=== PATIENT | female | born 1945 | race Caucasian/White ===

== ENCOUNTER 2018-04-17 12:07 | Inpatient (IN) ==
--- OUTSIDE RECORDS SUMMARY | 2018-04-17 12:31 | External Medical Summary | Referral Summary ---
:1945 Author Organization [facility] Address [address] [place] [address] Care Team Providers Name Role Phone Yoni Brice Afia Primary Care Physician Encounter [facility] [id number] Date(s): 03/15/18 - 03/15/18 [facility] [address] [place] [address] Encounter Diagnosis MDS (myelodysplastic syndrome) (Discharge Diagnosis) - 03/15/18 Discharge Disposition: 01-Home or Self Care Attending Physician: Bunny Palacio DO Admitting Physician: Bunny Palacio DO Vital Signs Most recent to oldest [Reference Range]: 1 Temperature Temporal Artery [36.3-37.8 degC] 37 degC (03/15/18 8:18 AM) Heart Rate Monitored [60-100 bpm] 63 bpm (03/15/18 10:45 AM) Respiratory Rate [14-20 br/min] 16 br/min (03/15/18 10:45 AM) Blood Pressure [90-140/60-90 mmHg] 118/60 mmHg (03/15/18 10:45 AM) Mean Arterial Pressure, Cuff 88 mmHg (03/15/18 10:45 AM) SpO2 100 % (03/15/18 10:45 AM) Problem List Condition Effective Dates Status Health Status Informant Cataracts(Confirmed) Active Chronic pancreatitis(Confirmed)1 Active Coronary artery disease(Confirmed)2 Active Unspecified deficiency Active anemia(Confirmed)3 Diabetes w/o complication type Active II(Confirmed)4 Long-term (current) use Active anticoagul(Confirmed)5 Unspecified hypothyroidism(Confirmed)6 Active Incisional hernia(Confirmed) Active Irregular heart rhythm(Confirmed)7 Active Measles(Confirmed)8 1950 Active Mumps(Confirmed)9 1972 Active Preleukemia(Confirmed) Active Neuropathy in ugo legs(Confirmed)10 Active Peripheral arterial disease(Confirmed) Active Rheumatic fever w/o heart 1953 Active involvement(Confirmed)11 Scarlet fever(Confirmed) 1953 Active Sjogren's syndrome(Confirmed)12 Active Lupus(Confirmed)13 Active Chicken pox(Confirmed) Active 1started in 1982. See conversion document.2See conversion document.3See conversion document.4See conversion document.5See conversion document.6See conversion document.7See conversion document.8See conversion document.9See conversion document.10See conversion document.11See conversion document.12See conversion document.13See conversion document. Allergies, Adverse Reactions, Alerts Substance Reaction Severity Status penicillin Urticaria (hives) Active Bactrim Active Ativan Active Medications acyclovir 800 mg, 0 Refill(s) Start Date: 03/15/18 Status: Orderedaspirin 81 mg, Oral, Daily, 0 Refill(s) Start Date: 07/02/14 Status: Orderedcalcium (as calcium citrate) 200 mg oral tablet 1 tabs, Oral, BID, 0 Refill(s) Start Date: 07/02/14 Status: Orderedcalcium carbonate-magnesium chloride 112 mg-64 mg oral delayed release tablet tabs, Oral, Daily, 0 Refill(s) Start Date: 07/02/14 Status: OrderedCentrum Silver 1, Oral, Daily, 0 Refill(s) Start Date: 07/02/14 Status: Orderedcyclobenzaprine 5 mg oral tablet 1 tabs, Oral, TID, 0 Refill(s) Start Date: 07/02/14 Status: Orderedferrous sulfate See Instructions, 5 mg orally 2x daily may take with food to minimize abdominal discomfort, 0 Refill(s) Start Date: 07/02/14 Status: OrderedHumaLOG SubCutaneous, 0 Refill(s) Start Date: 07/02/14 Status: OrderedLantus 100 units/mL subcutaneous solution SubCutaneous, 0 Refill(s) Start Date: 07/02/14 Status: Orderedlevothyroxine 175 mcg, Oral, Daily, 0 Refill(s) Start Date: 07/02/14 Status: OrderedMelatonin Bedtime (once a day), 0 Refill(s) Start Date: 03/15/18 Status: Orderedmorphine 30 mg oral tablet 1 tabs, Oral, q4hr, as needed for pain, 0 Refill(s) Start Date: 07/02/14 Status: Orderedmorphine 60 mg/12 hours oral tablet, extended release 1 tabs, Oral, q12hr, 0 Refill(s) Start Date: 07/02/14 Status: Orderednitroglycerin 0.4 mg sublingual tablet 1 tabs, SubLingual, q5min, as needed for chest pain, # 100 tabs, 0 Refill(s) Start Date: 07/02/14 Status: OrderedPlavix 75 mg oral tablet 1 tabs, Oral, Daily, # 90 tabs, 0 Refill(s) Start Date: 07/02/14 Status: OrderedPrednisol 1% ophthalmic solution drops, q4hr, 0 Refill(s) Start Date: 07/11/15 Status: OrderedRestasis 0.05% ophthalmic emulsion drops, Eye-Both, q12hr, 0 Refill(s) Start Date: 07/02/14 Status: Orderedtorsemide 5 mg oral tablet 1 tabs, Oral, Daily, # 90 tabs, 0 Refill(s) Start Date: 07/02/14 Status: OrderedTriCor 145 mg oral tablet 1 tabs, Oral, Daily, # 30 tabs, 0 Refill(s) Start Date: 07/02/14 Status: Orderedvitamin E 400 intl units oral capsule 1 caps, Oral, Daily, # 100 caps, 0 Refill(s) Start Date: 07/02/14 Status: Ordered Results Hematology Most recent to oldest [Reference Range]: 1 WBC [4.8-10.8 10*3/uL] 1.8 10*3/uL *LOW* (03/15/18 9:03 AM) RBC [4.00-5.20] 2.71 *LOW* (03/15/18 9:03 AM) Hgb [12.0-16.0 gm/dL] 8.9 gm/dL *LOW* (03/15/18 9:03 AM) Hct [37.0-47.0 %] 27.7 % *LOW* (03/15/18 9:03 AM) MCV [82.0-99.0 fL] 102.2 fL *HI* (03/15/18 9:03 AM) MCH [27.0-32.0 pg] 32.8 pg *HI* (03/15/18 9:03 AM) MCHC [32.0-36.0 gm/dL] 32.1 gm/dL (03/15/18 9:03 AM) RDW [11.5-14.5 %] 15.9 % *HI* (03/15/18 9:03 AM) Platelet [150-400 10*3/uL] 64 10*3/uL *LOW* (03/15/18 9:03 AM) MPV [9.4-12.4 fL] 12.7 fL *HI* (03/15/18 9:03 AM) Neutrophils [51-75 %] 32 % *LOW* (03/15/18 9:03 AM) Band Man [0-8 %] 2 % (03/15/18 9:03 AM) [place] Man [0-1 %] 3 % *HI* (03/15/18 9:03 AM) Lymphocytes [20-46 %] 52 % *HI* (03/15/18 9:03 AM) Monocytes [4-11 %] 1 % *LOW* (03/15/18 9:03 AM) Eosinophils [0-4 %] 10 % *HI* (03/15/18 9:03 AM) Basophils [0-2 %] 0 % (03/15/18 9:03 AM) Neutro Absolute [1.90-7.00] 0.61 *LOW* (03/15/18 9:03 AM) Lymph Absolute [0.80-3.30] 0.94 (03/15/18 9:03 AM) [place] Absolute [0.30-1.00] 0.02 *LOW* (03/15/18 9:03 AM) Eos Absolute [0.00-0.50] 0.18 (03/15/18 9:03 AM) Baso Absolute [0.00-0.20] 0.00 (03/15/18 9:03 AM) Dohle Bodies Occasional *ABN* (03/15/18 9:03 AM) Giant Platelets Occasional *ABN* (03/15/18 9:03 AM) Nucleated RBC Automated [0 /100 WBC] 0.0 /100 WBC (03/15/18 9:03 AM) Differential Manual *ABN* (03/15/18 9:03 AM) Chemistry Most recent to oldest [Reference Range]: 1 Blood Glucose, Capillary [70-100 mg/dL] 77 mg/dL (03/15/18 9:05 AM) Immunizations Given and Recorded Vaccine Date Status Refusal Reason influenza virus vaccine, live 06/28/13 Given influenza virus vaccine, live 07/11/12 Given Procedures Procedure Date Related Diagnosis Body Site Status Biopsy Bone Marrow (Right, Hip)1 03/15/18 Completed Procedure with Anesthesia2 03/15/18 Completed Biopsy Bone Marrow3 07/20/17 Completed Procedure with Anesthesia4 07/20/17 Completed Biopsy Bone Marrow5 07/02/14 Completed Examination Under Anesthesia6 07/02/14 Completed Chemotherapy7 09/2011 Completed Colonoscopy8 11/01/02 Completed thalium treadmill9 10/29/02 Completed Dfyoncpprtyubr36 01/12/99 Completed Stress echo11 01/27/98 Completed Lumbar 04/27/94 Completed Hernia fsffha72 1992 Completed Exploratory 05/1987 Completed Hdfxwinybyfdy81 05/06/86 Completed Appendectomy 1963 Completed Ovarian phqloqybhr98 1961 Completed Tonsillectomy 195 Completed Abdominal Exploration' Completed Adenoidectomy Completed Amputation below-knee17 Completed Amputation of toe18 Completed Back Kyphoplasty Completed Blood ztngznuhltg09 Completed Cataract extraction and insertion of Completed intraocular lens20 Catheterization of vein of lower Completed limb21 Cholecystectomy Completed Heart Cath x2 Completed Heart Stent x2 Completed Heart stents x322 Completed Hysterectomy and bilateral Completed salpingo-oophorectomy sample port a cath placement x2 Completed port a cath removal Completed Removal Lipoma of Groin Completed Ulnar Nerve Foallyqhnwxu64 Completed 1auto-populated from documented surgical hlya0ssve-uffkplglo from documented surgical iark6whex-lvckaorve from documented surgical mfez2sfak-klexzmrbu from documented surgical [id number]-[id number] from documented surgical sqcf2pyxb- populated from documented surgical bese5Jmacxys chemotherapy with Dr. Santiago. Preleukemia. See NextGen.8See conversion document.9[facility]. See conversion document.10[place]. See conversion document.11[facility]. See conversion document.12[place]. See conversion document.77Mxvzpvmez72Sg. Annabel Benite[place]. See NextGenn.15[place]. See conversion document.31Wmuuetllq41Dameh30Wrju foot 2nd, 3rd, 4th uwg794 in 1985 Melissa, 2 on 06/03/87 Erin. Several in [address] [facility], 2 in 1992 Melissa, 11 in February & March 1987 Erin, 2 on 06/06/97 Melissa, 20 in April & May 1990 [facility] and 2 on 03/26/04 [place]. See conversion document.20Bil houi27Grotg [id number] Social History Social History Type Response Smoking Status Former smoker; Type: Cigarettes1 entered on: 07/02/14 1quit 35 years ago
--- NOTE | 2018-04-17 12:42 | Emergency Department Report ---
General Adult HPI - General Chief complaint: Shortness of Breath/Dyspnea <David Corbin Q - 04/17/18 17:57 > Stated complaint: Low bp <David Corbin Q - 04/17/18 17:57> Source: patient, RN notes reviewed <Kristy Ernst R - 04/17/18 12:43> Limitations: no limitations (some dementia) <Kristy Ernst - 04/17/18 12: 43> - History of Present Illness HPI narrative: PT presents with a complaint of a cough for 2 weeks. Pt was at the cancer center this am when they noted a low BP. Pt was sent to her PCP who then sent her to the ER. PT states she just "doesn't feel well". She had been treated for her cough with Levaquin and took her last dose about 4 days ago however cough continues. PT states cough results in a "brown" sputum. She denies fever, chest pain, SOA, nausea, vomiting, diarrhea, or weakness. <Kristy Ernst R - 04/17/18 12:59> Onset (ago): week(s) <Kristy Ernst - 04/17/18 12:59> - Related Data Home Medications Medication Instructions Recorded Confirmed Nitroglycerin 0.4 mg SL Q5MIN PRN #0 06/27/10 04/17/18 Fenofibrate [Tricor] 145 mg PO HS #0 06/23/11 04/17/18 Acyclovir 800 mg PO BID #0 07/11/15 04/17/18 Torsemide 5 - 10 mg PO DAILY #0 07/05/16 04/17/18 Duloxetine HCl 30 mg PO DAILY 05/25/17 04/17/18 Aspirin [Adult Low Dose Aspirin EC] 81 mg PO HS 07/29/17 04/17/18 Morphine Sulfate 30 mg PO HS 07/29/17 04/17/18 Morphine Sulfate [Morphine Sulfate 30 mg PO HS 07/29/17 04/17/18 ER] Insulin Glargine [Lantus] 9 unit SQ HS 08/15/17 04/17/18 Insulin Regular-Do Not Expunge 2 unit SQ PRN PRN 08/15/17 04/17/18 [Humulin] Vitamin E 400 unit PO DAILY 08/15/17 04/17/18 Clopidogrel Bisulfate [Clopidogrel] 75 mg PO HS 01/25/18 04/17/18 Ferrous Sulfate 325 mg PO BID 01/25/18 04/17/18 Magnesium Chloride [Mag64] 64 mg PO BID 01/25/18 04/17/18 Melatonin/Pyridoxine HCl (B6) 3 mg PO HS 01/25/18 04/17/18 [Melatonin 3 mg Tablet] Minocycline [Minocin] 100 mg PO BID 01/25/18 04/17/18 Morphine Sulfate [Arymo ER] 15 mg PO DAILY 01/25/18 04/17/18 Calcium Carbonate 600 mg PO BID 04/17/18 04/17/18 Carboxymethylcellulos/Glycerin 2 drop EACH EYE QID 04/17/18 04/17/18 [Refresh Optive Eye Drops] Cholecalciferol (Vitamin D3) 20,000 unit PO HS 04/17/18 04/17/18 [Maximum D3] Cyclobenzaprine [Flexeril] 5 mg PO TID PRN 04/17/18 04/17/18 Fluorometholone 0.1% [Fml] 1 drop EACH EYE BID 04/17/18 04/17/18 Hydromorphone [Dilaudid] 2 mg PO BID PRN 04/17/18 04/17/18 Isosorbide Mononitrate ER [Imdur] 30 mg PO DAILY 04/17/18 04/17/18 Levothyroxine Tab [Synthroid] 137 mcg PO ACB 04/17/18 04/17/18 Morphine Sulfate *IR* [Morphine 30 mg PO QID PRN 04/17/18 04/17/18 Sulfate *Ir*] <David Corbin Q - 04/17/18 17:57> Allergies Allergy/AdvReac Type Severity Reaction Status Date / Time Penicillins Allergy Intermediate HIVES Verified 04/17/18 12:22 lorazepam AdvReac Intermediate HALLUCINATI Verified 04/17/18 12:22 ONS adhesive tape AdvReac Mild Verified 04/17/18 12:22 sulfamethoxazole AdvReac Unknown K+ level Verified 04/17/18 12:22 raises trimethoprim AdvReac Unknown K+ level Verified 04/17/18 12:22 raises <David Corbin Q - 04/17/18 17:57> Review of Systems All systems: reviewed and negative except as stated <Kristy Ernst - 12:43> Constitutional: Reports: as per HPI <Kristy Ernst 04/17/18 12:43> Cardiovascular: Reports: as per HPI <Kristy Ernst 04/17/18 12:43> Respiratory: Reports: as per HPI <Kristy Ernst 04/17/18 12:43> Gastrointestinal: Reports: as per HPI <Kristy Ernst 04/17/18 12:43> Genitourinary: Reports: as per HPI <Kristy Ernst 04/17/18 12:43> Neurological: Reports: as per HPI <Kristy Ernst 04/17/18 12:43> [facility] Patient Stated Medical History Peripheral Neuropathy Yes Cataracts Yes: Bilateral cataracts removed 2008 Other HEENT Yes: Sjogrens syndrome Congestive Heart Failure Yes Coronary Artery Disease Yes Hypertension Yes Other Cardiology Yes: PVD Pneumonia Yes: September 2012 Sleep Apnea No Diabetes Mellitus Type 2 Yes Hiatal Hernia Yes Hx Incontinence Yes Anemia Yes Blood Disorders Yes: MDS (Myelodysplastic Syndrome) Cellulitis Yes Sepsis Yes: 2016 Blood Transfusions Yes Chemotherapy Yes: 1 year ago Other Yes: Lupus Bipolar Disorder Yes Depression Yes Ovarian Cysts Yes: 1960 & 1961 Clinic Medical History (Last Updated 08/05/17 @ 15:31 by Jess Aguilera, YVAN) CAD in [place] artery (Chronic Medical) Diabetes (Chronic Medical) Diabetic neuropathy (Chronic Medical) HTN (hypertension) (Chronic Medical) Myelodysplastic syndrome (Chronic Medical) PVD (peripheral vascular disease) (Chronic Medical) Sjogrens syndrome (Chronic Medical) Rheumatic fever (Resolved Medical) <David Corbin Q - 04/17/18 17:57> Surgical History: placement of PowerPort 08/15/2017. heart cath no stents 2016. Peripheral cath right leg 11/08/2012. heart cath 3 stents 12/31/2008. heart caths 2001, 1997. 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 2nd, 3rd, 4th left foot toe amputations 2009. bilateral cataracts 2008. 2nd port-a-cath 01/25/2002. 1st porr-a-cath 05/26/1994. Abdominal hernia repair 1992 Erin. Bilateral ulnar transposition 1990. Exploratory laparotomy 06/03/1986. Hysterectomy 1975. Cholecystectomy 1966. Appy 1962. BSO 1960/1961 <Kristy Ernst 12:43> Family History: Family History (Last Updated 08/05/17 @ 15:43 by Jess Aguilera APRN) Father Heart disease Alzheimer's dementia Mother Cancer of breast Diabetes Brother Alzheimer's dementia High blood pressure Diabetes Son Multiple sclerosis <EmeraldDavid ang[place] Yaneth - 04/17/18 17:57> - Social History Smoking status: Former smoker <Kristy Ernst 04/17/18 12:43> Physical Exam - Limitations Limitations: no limitations <Kristy Ernst 04/17/18 12:43> - General General appearance: alert, in no apparent distress <Kristy Ernst 04/17 12:43> - Normal Exams: Head:: Normocephalic without trauma <Kristy Ernst 04/17/18 12:43> Neck:: Full range of motion <Kristy Ernst 04/17/18 12:43> Cardiovascular:: Regular rate and rhythm, without murmur or gallop, Pulses 2+ all extremities, capillary refill, <2 seconds all extremities <Kristy Ernst 04/17/18 12:43> Abdomen:: Bowel sounds positive, soft, non-tender, non-distended <Kristy Ernst 04/17/18 12:43> Musculoskeletal:: No tenderness, or deformity noted, good range of motion, all extremities (amputaion of RLE with prosthetic ) <Kristy Ernst 12:59> Integumentary:: No rashes (profuse bruisinig to all extremities 2/2 MDS) < Kristy Ernst 04/17/18 12:59> Neurological:: Patient is alert, and oriented, cranial nerves, motor/sensory/ cerebellar, exams w/o gross deficits, to observation <Kristy Ernst 12:43> Psychiatric:: Patient exhibits, appropriate attention, emotion and affect < Kristy Ernst 04/17/18 12:43> - Expanded Respiratory Exam Location: Left: decreased breath sounds, Right: decreased breath sounds, Lower: decreased breath sounds <GumeangelKristy Otto - 04/17/18 12:43> Course Vital Signs Temperature 97.6 F 04/17/18 12:10 Pulse Rate 66 04/17/18 12:10 Respiratory Rate 18 04/17/18 12:10 Blood Pressure 103/51 04/17/18 12:10 Pulse Oximetry 96 04/17/18 12:10 Temperature 96.3 F L 04/17/18 14:39 Pulse Rate 59 L 04/17/18 15:43 Respiratory Rate 17 04/17/18 14:39 Blood Pressure 146/79 H 04/17/18 15:43 Pulse Oximetry 100 04/17/18 14:39 <David Corbin - 04/17/18 17:57> Medical Decision Making - [facility] Narrative Medical decision making narrative: Labs, X ray, and EKG results obtained and reviewed. Dr Santiago notified of findings and wishes for pt to be admitted for careful rehydration. Hospitalist notified and agrees to admit. Findings and plan discussed with pt and family who voice understanding. <GumeangelKristy Otto - 04/17/18 14:01> - Differential Diagnosis hypotension, dehydration, Pneumonia, CHF <Kristy Ernst Otto - 04/17/18 12:59> - Lab Data Lab results reviewed: Yes: I reviewed the patient's lab results. <Kristy Ernst Otto - 04/17/18 14:01> Result diagrams: 04/17/18 12:41 04/17/18 12:41 <David Corbin - 04/17/18 17:57> Lab Results 04/17/18 04/17/18 04/17/18 Range/Units 12:41 12:41 13:13 WBC 2.0 L (4.5-11.0) T/MM3 RBC 2.66 L (4.00-5.20) M/MM3 Hgb 8.6 L (12-16) GM/DL Hct 28.2 L (36-46) % MCV 106.0 H (80-100) UM3 MCH 32.3 (26-34) UUG MCHC 30.5 L (31-37) GM/DL RDW Std Deviation 58.0 H (36.9-50.2) FL Plt Count 43 L (130-400) T/MM3 MPV 12.1 (9.4-12.4) UM3 Immature Gran % (Auto) 0.0 (0.0-0.5) % Neut % (Auto) 44.0 (33-66) % Lymph % (Auto) 46.5 H (23-45) % [place] % (Auto) 4.5 (0-9.0) % Eos % (Auto) 4.5 H (0-4) % Baso % (Auto) 0.5 (0-2) % Neut # (Auto) 0.9 L (1.8-7.7) T/MM3 Lymph # (Auto) 0.9 L (1-4.8) T/MM3 [place] # (Auto) 0.1 (0-0.8) T/MM3 Eos # (Auto) 0.1 (0-0.5) T/MM3 Baso # (Auto) 0.0 (0-0.2) T/MM3 Abs Immat Gran (auto) 0.00 (0.00-0.03) T/MM3 Turbidity < 20 (0-20) Sodium 147 H (136-146) MEQ/L Potassium 4.7 (3.6-5) MEQ/L Chloride 109 H (98-107) MEQ/L Carbon Dioxide 32 H (22-30) MEQ/L Anion Gap 6 (5-15) meq/L BUN 69.0 H* (7-17) MG/DL Creatinine 2.1 H (0.7-1.2) mg/dL GFR Calculation 23 BUN/Creatinine Ratio 33 H (6-26) RATIO Glucose 82 (65-110) MG/DL Calculated Osmolality 301 H (261-280) MOSM/KG Calcium 9.3 (8.4-10.2) MG/DL Total Bilirubin 0.80 (0.20-1.30) MG/DL Icterus Index < 2 (0-7) AST 30 (14-36) U/L ALT 13 (1-35) U/L Alkaline Phosphatase 47 (38-126) U/L Troponin I < 0.012 (0-0.12) ng/ml NT-Pro-B Natriuret Pep 6700 H (0-175) pg/mL Total Protein 5.2 L (6.3-8.2) g/dL Albumin 2.9 L (3.5-5.0) g/dL Globulin 2.3 L (2.4-3.6) G/DL Albumin/Globulin Ratio 1.3 (1.1-2.2) RATIO Specimen Hemolysis < 15 (0-25) Ur Collection Type Urine, void-cc/notcc Urine Color Yellow (YELLOW) Urine Clarity Clear Urine pH 5.5 (5.0-8.0) Ur Specific [place] 1.010 L (1.015-1.025) Urine Protein Negative (NEGATIVE) Urine Glucose (UA) Negative (NEGATIVE) Urine Ketones Negative (NEGATIVE) Urine Occult Blood Negative (NEGATIVE) Urine Nitrate Negative (NEGATIVE) Urine Bilirubin Negative (NEGATIVE) Urine Urobilinogen 0.2 (NORMAL) EU/DL Ur Leukocyte Esterase Negative (NEGATIVE) Urinalysis Comment Microscopic not ind. <David Corbin 04/17/18 17:57> - Radiology Data Radiology results reviewed: Yes: I reviewed the patient's radiology results. < Kristy Ernst 04/17/18 14:01> - EKG Data EKG #1 EKG attestation: Yes: I reviewed and interpreted this EKG. <David Corbin 04/17/18 17:57> Yes: I reviewed and interpreted this EKG. <Kristy Ernst 04/17/18 14:01> EKG shows normal: sinus rhythm <David Corbin 04/17/18 17:57> sinus rhythm <Kristy Ernst 04/17/18 14:01> Rate: normal <David Corbin 04/17/18 17:57> normal <Kristy Ernst 04/17/18 14:01> Rhythm: NSR <David Corbin 04/17/18 17:57> NSR <Kristy Ernst 04/17/18 14:01> Interpretation: no acute changes <David Corbin 04/17/18 17:57> Disposition Clinical Impression: Dehydration, MDS (myelodysplastic syndrome) <David Corbin 04/17/18 17:57> Disposition: 02 To OBS [facility] <David Corbin - 04/17/18 17:57> Condition: Stable <CraigmontDavid angeles 04/17/18 17:57> Instructions: <David Corbin 04/17/18 17:57> Prescriptions: No Action Nitroglycerin 0.4 mg SL Q5MIN PRN #0 PRN Reason: CHEST PAIN Morphine Sulfate 30 mg PO HS Aspirin [Adult Low Dose Aspirin EC] 81 mg PO HS Vitamin E 400 unit PO DAILY Insulin Regular-Do Not Expunge [Humulin] 2 unit SQ PRN PRN PRN Reason: Blood Sugar >200 Ferrous Sulfate 325 mg PO BID Magnesium Chloride [Mag64] 64 mg PO BID Melatonin/Pyridoxine HCl (B6) [Melatonin 3 mg Tablet] 3 mg PO HS Clopidogrel Bisulfate [Clopidogrel] 75 mg PO HS Cyclobenzaprine [Flexeril] 5 mg PO TID PRN PRN Reason: Prn Orders Carboxymethylcellulos/Glycerin [Refresh Optive Eye Drops] 2 drop EACH EYE QID Fluorometholone 0.1% [Fml] 1 drop EACH EYE BID Calcium Carbonate 600 mg PO BID Levothyroxine Tab [Synthroid] 137 mcg PO ACB Hydromorphone [Dilaudid] 2 mg PO BID PRN PRN Reason: Pain Isosorbide Mononitrate ER [Imdur] 30 mg PO DAILY Fenofibrate [Tricor] 145 mg PO HS #0 Acyclovir 800 mg PO BID #0 Torsemide 5 - 10 mg PO DAILY #0 Duloxetine HCl 30 mg PO DAILY Morphine Sulfate [Morphine Sulfate ER] 30 mg PO HS Insulin Glargine [Lantus] 9 unit SQ HS Minocycline [Minocin] 100 mg PO BID Morphine Sulfate [Arymo ER] 15 mg PO DAILY Morphine Sulfate *IR* [Morphine Sulfate *Ir*] 30 mg PO QID PRN PRN Reason: Pain Cholecalciferol (Vitamin D3) [Maximum D3] 20,000 unit PO HS <David Corbin 04/17/18 17:57> Referrals: Yoni Brice MD [Primary Care Provider] - <David Corbin Q - 04/17/18 17:57> Forms: <David Corbin - 04/17/18 17:57> Time of Disposition: 14:01 <Kristy Ernst 04/17/18 14:01> - Seen By: midlevel <Kristy Ernst 04/17/18 14:01>
--- NOTE | 2018-04-17 13:21 | XRay Report ---
Indication: cough PROCEDURE: XR chest 2V: Encounter: Initial Comparison: 08/15/2017 Findings: There is mild elevation of left diaphragm, similar to prior study. There is prominence of the jeniffer bilaterally. There is a right IJ in place with tip overlying the mid to lower SVC. There is some linear changes of atelectasis or scarring in the left mid to lower lung field. No pleural effusion. There is moderate tortuosity of the descending thoracic aorta. Impression: Left basilar atelectasis with elevation of the left diaphragm. No statement change from prior exam. .
--- NOTE | 2018-04-17 14:44 | History & Physical Report ---
History of Present Illness Date: 04/17/18 Chief complaint: Back pain HPI: Zeenat Noland is a 73 year old chronically ill woman who was seen by Dr. Santiago on 04/17/18. Per staff at the cancer center, she began to complain of a sore throat and difficulty swallowing, and Dr. Brice was able to see her in his clinic after her lab draw there. Per Dr. Brice's report, the patient was confused and staff was unable to get a BP. Her radial pulse was weak and thready. From there she was taken to [facility] [place] ED. When I assessed Zeenat, her primary concern was pain across her lower back. She has chronic pain but it seemed worse today. She also has been feeling more short of breath than usual. She c/o productive cough and just recently completed a course of Levaquin. She notes sinus congestion/drainage. She states the sore throat/dry mouth/difficulty swallowing is a new finding. No recent fevers. She denied chest pain/palpitations. She notes weakness and dizziness. She complains of a headache. She uses a walker to ambulate. She has multiple abrasions on her arms/legs with confluent ecchymoses -- she blames many of these abrasions on her cat. She denies any abdominal pain or vomiting or bowel problems and reports that she's been eating/drinking fine. She denied dysuria. Her last chemo was 04/07/18 (gets it every 4 weeks - Dacogen and Neulasta). Labs revealed hypernatremia [147], elevated creatinine [2.1], pancytopenia [ chronic], unremarkable UA and CXR. Her BP ranged between 103/51-158/67. She was admitted to [facility] [place] for IVF and further monitoring of her hypotensive/near syncopal event earlier. Review of Systems All systems PM: 10-point ROS was reviewed, no additional remarkable complaints except - Constitutional Constitutional: Present: as per HPI - EENMT Eyes: Present: requires corrective lenses Mouth/Throat: Present: as per HPI - Cardiovascular Cardiovascular: Present: as per HPI Vascular: Present: other (Rt BKA) - Respiratory Respiratory: Present: as per HPI - Gastrointestinal Gastrointestinal: Present: as per HPI - Genitourinary Genitourinary: Present: as per HPI - Musculoskeletal Musculoskeletal: Present: back pain - Integumentary/Breasts Integumentary: Present: as per HPI, wounds - Neurological Neurological: Present: as per HPI - Psychiatric Psychiatric: Present: depression - Endocrine Endocrine: Present: as per HPI - Hematologic/Lymphatic Hematologic/Lymphatic: Present: easy bleeding, easy bruising Past Medical History Medical History: Medical History (Last Updated 08/05/17 @ 15:31 by Jess Aguilera APRN) CAD in [place] artery Diabetes Diabetic neuropathy HTN (hypertension) Myelodysplastic syndrome PVD (peripheral vascular disease) Sjogrens syndrome Rheumatic fever Medical History Updates: CKD. CHF. CAD. PVD. DM2. Peripheral neuropathy. Hypothyroidism. Hyperlipidemia. Rheumatic scarlet fever 1953. SLE. Sjogren' s. Depression. OA. OP Surgical History: placement of PowerPort 08/15/2017. heart cath 01/25/18 stent to LAD. heart cath no stents 05/25/2017. Peripheral cath right leg 11/08/2012. heart cath 3 stents 12/31/2008. heart caths 2001, 1997. 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 2nd, 3rd, 4th left foot toe amputations 2009. bilateral cataracts 2008. 2nd port-a- cath 01/25/2002. 1st port-a-cath 05/26/1994. Abdominal hernia repair 1992 Erin. Bilateral ulnar transposition 1990. Exploratory laparotomy 1985. Hysterectomy 1975. Cholecystectomy 1966. Appy 1962. BSO 1960/1961 Family History: Family History (Last Updated 08/05/17 @ 15:43 by Jess Aguilera APRN) Father Heart disease Alzheimer's dementia Mother Cancer of breast Diabetes Brother Alzheimer's dementia High blood pressure Diabetes Son Multiple sclerosis Family History: As Above - Social History Smoking status: Former smoker Substance use type: does not use Alcohol intake frequency: does not drink Household members: spouse Medications Home Medications Medication Instructions Recorded Confirmed Type Nitroglycerin 0.4 mg SL Q5MIN PRN #0 06/27/10 04/17/18 History Fenofibrate [Tricor] 145 mg PO HS #0 06/23/11 04/17/18 History Acyclovir 800 mg PO BID #0 07/11/15 04/17/18 History Torsemide 5 - 10 mg PO DAILY #0 07/05/16 04/17/18 History Duloxetine HCl 30 mg PO DAILY 05/25/17 04/17/18 History Aspirin [Adult Low Dose Aspirin EC] 81 mg PO HS 07/29/17 04/17/18 History Morphine Sulfate 30 mg PO HS 07/29/17 04/17/18 History Morphine Sulfate [Morphine Sulfate 30 mg PO HS 07/29/17 04/17/18 History ER] Insulin Glargine [Lantus] 9 unit SQ HS 08/15/17 04/17/18 History Insulin Regular-Do Not Expunge 2 unit SQ PRN PRN 08/15/17 04/17/18 History [Humulin] Vitamin E 400 unit PO DAILY 08/15/17 04/17/18 History Clopidogrel Bisulfate [Clopidogrel] 75 mg PO HS 01/25/18 04/17/18 History Ferrous Sulfate 325 mg PO BID 01/25/18 04/17/18 History Magnesium Chloride [Mag64] 64 mg PO BID 01/25/18 04/17/18 History Melatonin/Pyridoxine HCl (B6) 3 mg PO HS 01/25/18 04/17/18 History [Melatonin 3 mg Tablet] Minocycline [Minocin] 100 mg PO BID 01/25/18 04/17/18 History Morphine Sulfate [Arymo ER] 15 mg PO DAILY 01/25/18 04/17/18 History Calcium Carbonate 600 mg PO BID 04/17/18 04/17/18 History Carboxymethylcellulos/Glycerin 2 drop EACH EYE QID 04/17/18 04/17/18 History [Refresh Optive Eye Drops] Cholecalciferol (Vitamin D3) 20,000 unit PO HS 04/17/18 04/17/18 History [Maximum D3] Cyclobenzaprine [Flexeril] 5 mg PO TID PRN 04/17/18 04/17/18 History Fluorometholone 0.1% [Fml] 1 drop EACH EYE BID 04/17/18 04/17/18 History Hydromorphone [Dilaudid] 2 mg PO BID PRN 04/17/18 04/17/18 History Isosorbide Mononitrate ER [Imdur] 30 mg PO DAILY 04/17/18 04/17/18 History Levothyroxine Tab [Synthroid] 137 mcg PO ACB 04/17/18 04/17/18 History Morphine Sulfate *IR* [Morphine 30 mg PO QID PRN 04/17/18 04/17/18 History Sulfate *Ir*] Allergies Allergy/AdvReac Type Severity Reaction Status Date / Time Penicillins Allergy Intermediate HIVES Verified 04/17/18 12:22 lorazepam AdvReac Intermediate HALLUCINATI Verified 04/17/18 12:22 ONS adhesive tape AdvReac Mild Verified 04/17/18 12:22 sulfamethoxazole AdvReac Unknown K+ level Verified 04/17/18 12:22 raises trimethoprim AdvReac Unknown K+ level Verified 04/17/18 12:22 raises Exam Vital Signs: Temperature 97.6 F 04/17/18 12:10 Pulse Rate 58 L 04/17/18 13:53 Respiratory Rate 16 04/17/18 12:59 Blood Pressure 158/67 H 04/17/18 14:01 Pulse Oximetry 93 04/17/18 14:01 Height/Weight/BMI: Height 1.68 m Weight 79.6 kg - Constitutional Present: no acute distress, well nourished, well developed - Routine HEENT Exam Head: Present: normocephalic Eye: Present: PERRL (pupils are pinpoint). Absent: conjunctival icterus, scleral injection ENT: Present: mucous membranes dry, oropharynx clear - Routine Neck Exam Present: supple - Routine Respiratory Exam Present: CTA bilaterally - Routine Cardiovascular Exam Present: RRR, S1, S2 - Routine Abdominal Exam Present: soft, normoactive bowel sounds, non distended, non tender - Routine Extremities Exam Present: no edema Comments: right BKA - Routine Skin Exam Present: wounds (several old abrasions/skin tears to arms/hands - none actively bleeding), ecchymosis (widespread to arms/leg) - Routine Neurological Exam Present: alert, oriented X3, CN II-XII intact (initially she had difficulty with EOMI; stopped at midline with left gaze. However, she was tired and when I asked her to look at my fingers she was able to successfully follow them through the entire ROM.), moving all extremities, vision grossly intact, hearing grossly intact, normal speech. Absent: motor deficit, tremors - Routine Psychiatric Exam Present: normal thought process, cooperative Results - Labs CBC & Chem 7: 04/17/18 12:41 04/17/18 12:41 - ECG Data Tracing #1 I reviewed this ECG and interpreted as documented below: NSR No ST elevation/depression - Imaging and Cardiology Chest x-ray Status: image reviewed by me Additional comments: no infiltrates/failure Assessment and Plan Assessment and Plan: Assessment JULIAN, creatinine 2.1, baseline ~1.3 Hypernatremia, POA Near syncope Dysphagia MDS -Dacogen and Neulasta q4 weeks per Dr. Santiago Pancytopenia, chronic CHF, diastolic CAD PVD, hx of right BKA DM2, peripheral neuropathy CKD Dyslipidemia Depression Chronic narcotic use Hypothyroid OP, OA SLE, Sjogrens Plan Admit, observation status. IVF: 1/2 NS at 100 mL/hr x1L. Repeat labs in am. Hold Torsemide. BP stable in ED. Check orthostatics BID. Trend troponin; pt with significant coronary hx. Monitor telemetry. Sat Tutor : Dr. Hudson. Consult speech therapy Consult PT/OT Monitor BG; carb consistent diet. Advanced directives: Spouse is DPOA. DNR. Discussed with Dr. Santiago's office, Dr. Brice, and ED staff. External records reviewed. Resuscitation Status: Do Not Resuscitate - Physician Narrative Physician: Viky Portillo MD Narrative: Date: 04/17/18 Time: 1829 I have independently evaluated and examined this patient. I reviewed the chart, the patient's history, and the RETURNING OFFICER/PA's documented findings as above. We discussed and formulated the assessment and plan as above with additions as below: Mrs. Ludin ambrose has been at bedside. Patient reports feeling weak and reports having poor appetite. She has been eating virtually nothing but her indicate that she's been drinking liquids well and he reports no nausea, vomiting, diarrhea, or fevers. He indicates that last time she was like she is now she had a blood stream infection. No fevers reported at home. Afebrile since arrival; supine blood pressure 146/79, standing 146/59; patient dull Respirations nonlabored, poor inspiratory effort, anterior parish clear Hyperpigmented upper extremities, skin tents Abdomen soft, nontender, bowel sounds present BUN/creatinine above baseline; WBC/Hbg/platelets all depressed-Hbg well below baseline. BNP elevated. Chest x-ray reviewed by myself-elevation of left hemidiaphragm and prominence of hilum, atelectasis at the left base. No evidence of heart failure. Blood cultures to be drawn Continue hydration, reassess in a.m. Hospital Course Summary Disclaimer: The visit summary below is not to be considered part of the above Progress Note. Hospital Course: 04/17/18 Admit, observation status. IVF: 1/2 NS at 100 mL/hr x1L. Repeat labs in am. Hold Torsemide. BP stable in ED. Check orthostatics BID. Trend troponin; pt with significant coronary hx. Monitor telemetry. Sat Tutor : Dr. Hudson. Consult speech therapy Consult PT/OT Monitor BG; carb consistent diet. Advanced directives: Spouse is DPOA. DNR.
[2018-04-17] MEDS ORDERED: ONDANSETRON 4 MG/2 ML INJECTION IVP PRN (15:04)
[2018-04-17] MEDS ORDERED: NITROGLYCERIN 0.4 MG SUBLINGUAL TABLET SL PRN (15:06)
[2018-04-17] MEDS ORDERED: 1/2 NS 1,000 ML IV SCH (15:15)
[2018-04-17] MEDS: REFRESH CELLUVISC 1% Eye Drops 0.4ml EACH EYE SCH ×3 (17:23→21:49)
[2018-04-17] MEDS: FERROUS SULFATE 324 MG TABLET PO SCH (17:38)
[2018-04-17] MEDS ORDERED: INSULIN GLARGINE 100unit/ml INJECTION SQ SCH (21:00)
[2018-04-17] MEDS: MINOCYCLINE 100 MG CAPSULE PO SCH (21:48)
[2018-04-17] MEDS: ACYCLOVIR 800 MG PO SCH (21:48)
[2018-04-17] MEDS: MELATONIN 1 MG TABLET PO SCH (21:49)
[2018-04-17] MEDS: FENOFIBRATE 145 MG TABLET PO SCH (21:49)
[2018-04-17] MEDS: ASPIRIN *EC* 81 MG TABLET PO SCH (21:50)
[2018-04-17] MEDS: CLOPIDOGREL 75 MG TABLET PO SCH (21:52)
[2018-04-17] MEDS: EYE EACH EYE SCH (21:53)
[2018-04-17] MEDS: FLUOROMETHOLONE 0.1% EACH EYE SCH (21:53)
[2018-04-18] MEDS: ISOSORBIDE MONONITRATE ER 30 MG TABLET PO SCH (06:43)
[2018-04-18] MEDS: LEVOTHYROXINE 137 MCG TABLET PO SCH (06:43)
[2018-04-18] MEDS: CYCLOBENZAPRINE 5 MG TABLET PO PRN ×2 (06:45→21:34)
[2018-04-18] MEDS: DULOXETINE 30 MG CAPSULE PO SCH (08:46)
[2018-04-18] MEDS: FERROUS SULFATE 324 MG TABLET PO SCH ×2 (08:46→17:49)
[2018-04-18] MEDS: REFRESH CELLUVISC 1% Eye Drops 0.4ml EACH EYE SCH ×4 (08:46→21:34)
[2018-04-18] MEDS: MINOCYCLINE 100 MG CAPSULE PO SCH ×2 (08:46→21:34)
[2018-04-18] MEDS: FLUOROMETHOLONE 0.1% EACH EYE SCH ×2 (08:46→21:34)
[2018-04-18] MEDS: ACYCLOVIR 800 MG PO SCH ×2 (08:46→21:34)
[2018-04-18] MEDS: EYE EACH EYE SCH ×2 (08:46→21:34)
--- NOTE | 2018-04-18 14:40 | Wound Care Progress Note ---
Wound Center Progress Note: Pt seen for wound consultation r/t sore on R buttock. Pt lying in bed, states her bottom "stings." Pt was admitted for confusion, weak and thready radial pulse. Pt was discharged from [facility] 01/24/[address] Pate for tx of L lateral calf wound. Pt has a R BKA. Pt has multiple abrasions on bilateral arms/legs with confluent ecchymoses. Nursing staff report a sore on R medial buttock. R medial buttock: skin intact, area has blanching erythema. Pt has a Mepilex border dressing to area, no drainage on dressing. Pt able to turn independently in bed. Wound tx plan: Continue to monitor area, off load with regular repositioning, continue with Mepilex dressing to add padding to area.
--- NOTE | 2018-04-18 14:57 | Progress Note ---
- Date 04/18/18 Subjective: Patient seen sitting in her chair this afternoon. SHe reports she is weak. She is SOA and has been coughing x 2 wks. Has some abdominal pain. No urinary sxs. Last BM the day before yesterday. No CP, vomiting or fever. Objective Vital signs: Temperature 96.6 F L 04/18/18 14:38 Pulse Rate 93 04/18/18 14:40 Respiratory Rate 22 04/18/18 14:37 Blood Pressure 124/70 04/18/18 14:40 Pulse Oximetry 100 04/18/18 14:38 Height/Weight/BMI: Height 1.57 m Weight 65 kg Body Mass Index 25.8 - Constitutional Present: no acute distress, well nourished, well developed - Routine HEENT Exam Head: Present: normocephalic, atraumatic - Routine Respiratory Exam Present: decreased breath sounds, diminished air movement Comments: breath sounds are diminished in the bases and sounds are diffusely wheezy - Routine Cardiovascular Exam Present: RRR, no murmur - Routine Abdominal Exam Present: soft, normoactive bowel sounds, tenderness (mild - suprapubic), non distended - Routine Extremities Exam Present: no edema Comments: R BKA Diffuse ecchymosis to arms - Routine Skin Exam Present: dry, warm - Routine Neurological Exam Present: alert, moving all extremities, normal speech - Routine Lymphatic Exam Lymphatic: Absent: adenopathy - Routine Psychiatric Exam Present: normal affect, cooperative Results - Labs CBC & Chem 7: 04/18/18 03:50 04/18/18 03:50 Microbiology Results: Microbiology 04/17/18 19:39 Port/Picc Blood Culture - Preliminary Culture Initiated - Results Pending 04/17/18 19:47 Peripheral/Iv Start Blood Culture - Preliminary Culture Initiated - Results Pending Assessment and Plan Assessment and Plan: Assessment Respiratory insufficiency w/ hypoxia Suspicious for pneumonia Absolute neutropenia Cough x 2 wks JULIAN, creatinine 2.1, baseline ~1.3 Hypernatremia (POA) Near syncope Dysphagia MDS - Dacogen and Neulasta q4 weeks per Dr. Santiago Pancytopenia, chronic CHF, diastolic CAD PVD, hx of right BKA Type II DM, peripheral neuropathy Stage III CKD Dyslipidemia Depression Chronic narcotic use Hypothyroid OP, OA SLE, Sjogrens Plan Repeat CXR. Obtain sputum culture and respiratory panel. Start Duonebs and acapella. Add Levofloxacin for pulmonary coverage. ANC 1.7. CBC in am. Troponins were neg. Torsemide remains on hold. Creatinine improving 2.1-->1.7. Check BMP and Mag in am. Speech recommends mechanical soft diet. Not eating much but drinking Ensure. PT rec home with HH. Resuscitation Status: Do Not Resuscitate - Time spent with patient Time with patient PN: 25 minutes - Physician Narrative Physician: Arsalan Grimm MD Narrative: Date: 04/18/18 Time: 1732 Have independently interviewed & examined pt. Chart reviewed. Case discussed with CM & my PA. Care plan developed with my supervision; agree with above. Still feeling very weak and fatigued. Cough problematic-very harsh, non productive. More SOA. No nasal congestion. Oral drive decreased. Some nausea. Reports bowels moving. Mid to low back pain problematic. No urinary pain or discomfort. Lungs: decreased, coarse. Harsh cough CV: regular AB: soft nt/nd BS decreased MSE: awake alert Plan: Will change to inpatient admission secondary to MDS with absolute neutropenia and increased SOA/cough concerning for pneumonia. Levaquin for coverage. Renal status with slight improvement-will start 1/2NS at 50cc/hr as oral drive very decreased. Neutropenic precautions. Recheck CBC in am-if still decreased would give GCSF. Blood sugars running low - will hold Lantus. Check TSH secondary to fatigue. Monitor lab. Hospital Course Summary Disclaimer: The visit summary below is not to be considered part of the above Progress Note. Hospital Course: 04/17/18 Admit, observation status. IVF: 1/2 NS at 100 mL/hr x1L. Repeat labs in am. Hold Torsemide. BP stable in ED. Check orthostatics BID. Trend troponin; pt with significant coronary hx. Monitor telemetry. Sales Advisor : Dr. Hudson. Consult speech therapy Consult PT/OT Monitor BG; carb consistent diet. Advanced directives: Spouse is DPOA. DNR. 04/18/18 Will change to inpatient admission status secondary to MDS with neutropenia and hypoxia/cough suspicious for pneumonia. Repeat CXR. Obtain sputum culture and respiratory panel. Start Duonebs and acapella. Start levofloxacin for pulmonary coverage. ANC 1.7. Follow labs. Troponin were neg. Torsemide remains on hold. Creatinine with improvement from 2.1 at presentation to 1.7. Start 1/2NS at 50cc/hr as oral intake low. Speech recommends mechanical soft diet. Not eating much but drinking Ensure. Blood sugars running low - will hold Lantus. PT rec home with HH.
[2018-04-18] MEDS: ALBUTEROL/IPRATROPIUM 2.5mg-0.5mg/3ml NEB AEROSOL SCH ×2 (15:41→20:52)
[2018-04-18] MEDS: INSULIN REGULAR, HUMAN 100 UNIT/ML INJECTION SQ PRN (15:44)
--- NOTE | 2018-04-18 16:42 | XRay Report ---
Indication: soa, cough PROCEDURE: XR chest 1V: Encounter: Initial Comparison: 04/17/2018 Findings: The examination is expiratory in nature. There is moderate elevation of the left diaphragm that is similar to prior study. There is a right IJ port in place with its tip overlying the mid SVC region. There is prominence of the cardiac silhouette which is probably accentuated by the AP portable technique. No definite lobar consolidation or pleural effusion. No mediastinal or hilar adenopathy. The trachea is midline. No subdiaphragmatic free air. Impression: No significant change from prior examination. Expiratory exam with left basilar atelectasis and/or scarring as well as elevation of the left hemidiaphragm, unchanged. .
[2018-04-18] MEDS ORDERED: LEVOFLOXACIN PB 750 MG/150 ML BAG IV SCH (16:45)
[2018-04-18] MEDS ORDERED: 1/2 NS 1,000 ML IV SCH (18:15)
[2018-04-18] MEDS: MELATONIN 1 MG TABLET PO SCH (21:33)
[2018-04-18] MEDS: CLOPIDOGREL 75 MG TABLET PO SCH (21:34)
[2018-04-18] MEDS: FENOFIBRATE 145 MG TABLET PO SCH (21:34)
[2018-04-18] MEDS: ASPIRIN *EC* 81 MG TABLET PO SCH (21:34)
[2018-04-19] MEDS: LEVOTHYROXINE 137 MCG TABLET PO SCH (05:39)
[2018-04-19] MEDS: ALBUTEROL/IPRATROPIUM 2.5mg-0.5mg/3ml NEB AEROSOL SCH ×4 (07:05→21:53)
[2018-04-19] MEDS ORDERED: TBO-FILGRASTIM 480mcg/0.8ml INJECTION SQ ONE (09:04)
--- NOTE | 2018-04-19 10:45 | Progress Note ---
- Date 04/19/18 Subjective: Patient is seen this morning in bed. She is confused this morning. She thinks she is at someone's house. She cannot tell me the date or why she is in the hospital. She does recognize her and asks him what is going on. She was started on Levaquin yesterday. She is unable to tell me if her breathing is better. Unable to obtain any further review of systems. Objective Vital signs: Temperature 97.3 F 04/18/18 23:00 Pulse Rate 95 04/19/18 08:00 Respiratory Rate 20 04/19/18 07:06 Blood Pressure 117/58 04/18/18 23:00 Pulse Oximetry 100 04/19/18 07:06 Height/Weight/BMI: Height 1.57 m Weight 65 kg Body Mass Index 25.8 - Constitutional Present: no acute distress, well nourished, well developed - Routine HEENT Exam Head: Present: normocephalic, atraumatic - Routine Respiratory Exam Present: decreased breath sounds (few coarse sounds noted. Exam limited as patient refused to sit up.), wheezes - Routine Cardiovascular Exam Present: RRR, no murmur - Routine Abdominal Exam Present: soft, tenderness (Patient pushes my hand away and says "ouch" when palpating suprapubic area), non distended - Routine Extremities Exam Present: no edema, normal capillary refill Comments: R BKA - Routine Skin Exam Present: dry, warm Comments: confluent bruising to arms - Routine Neurological Exam Present: alert. Absent: oriented X3, normal speech (speech is somewhat difficult to understand) - Routine Lymphatic Exam Lymphatic: Absent: adenopathy - Routine Psychiatric Exam Comments: confused and somewhat agitated Results - Labs CBC & Chem 7: 04/19/18 04:34 04/19/18 04:34 Microbiology Results: Microbiology 04/18/18 21:30 Sputum, Expectorated Gram Stain - Preliminary 04/17/18 19:39 Port/Picc Blood Culture - Preliminary No Growth After 1 Day 04/17/18 19:47 Peripheral/Iv Start Blood Culture - Preliminary No Growth After 1 Day Assessment and Plan Assessment and Plan: Assessment Respiratory insufficiency w/ hypoxia Suspicious for pneumonia Rhinovirus positive Suprapubic abdominal pain (onset 04/18) Absolute neutropenia JULIAN, creatinine 2.1, baseline ~1.3 Hypernatremia (POA) Near syncope Dysphagia MDS - Dacogen and Neulasta q4 weeks per Dr. Santiago Pancytopenia, chronic CHF, diastolic CAD PVD, hx of right BKA Type II DM, peripheral neuropathy Stage III CKD Dyslipidemia Depression Chronic narcotic use Hypothyroid OP, OA SLE, Sjogrens Plan Pt tested + for rhinovirus. Continue Duonebs and acapella. Her confused state could be r/t starting Levaquin. Will switch to Rocephin for coverage of lung pathogens given her immunocompromised state. Hgb dropped 8.3-->7.0. Transfuse 1U PRBC's. Given her abdominal pain and drop in hgb, check CT abd/pelvis and UA. Insert Pepe for accurate I&O. Creatinine improving 2.1-->1.7-->1.5. BS's stable. Resuscitation Status: Do Not Resuscitate - Time spent with patient Time with patient PN: 25 minutes - Physician Narrative Physician: Arsalan Grimm MD Narrative: Date: 04/19/18 Time: 1340 Have independently interviewed & examined pt. Chart reviewed. Case discussed with CM & my PA. Care plan developed with my supervision; agree with above. Much more awake and alert this afternoon-communicates well. Thought clear. Reports breathing feels better-less SOA and not having cough like yesterday. No pain with breathing. Appetite with slight increase. Not reporting nausea or ab pain. Lungs: decreased, upper airway noises. CV: regular AB: soft nt/nd +BS EXT: trace pretibial edema. MSE: awake alert Plan: Change levofloxacin to ceftriaxone due to confusion this am-possible secondary to levofloxacin. GCSF give as WBC with decrease, recheck WBC in am to determine if repeat gCSF needed. Will give 1 unit pRBC as HGB decreased. Creatinine showing improvement-will stop IVF and monitor. Sugars stable with Lantus on hold. Encourage activities as able. Hospital Course Summary Disclaimer: The visit summary below is not to be considered part of the above Progress Note. Hospital Course: 04/17/18 Admit, observation status. IVF: 1/2 NS at 100 mL/hr x1L. Repeat labs in am. Hold Torsemide. BP stable in ED. Check orthostatics BID. Trend troponin; pt with significant coronary hx. Monitor telemetry. Histologic Aide : Dr. Hudson. Consult speech therapy. Consult PT/OT. Monitor BG; carb consistent diet. Advanced directives: Spouse is DPOA. DNR. 04/18/18 Will change to inpatient admission status secondary to MDS with neutropenia and hypoxia/cough suspicious for pneumonia. Repeat CXR. Obtain sputum culture and respiratory panel. Start Duonebs and acapella. Start levofloxacin for pulmonary coverage. ANC 0.6 Follow labs. Troponin were neg. Torsemide remains on hold. Creatinine with improvement from 2.1 at presentation to 1.7. Start 1/2NS at 50cc/hr as oral intake low. Speech recommends mechanical soft diet. Not eating much but drinking Ensure. Blood sugars running low - will hold Lantus. PT rec home with HH. 04/19/18 Pt tested + for rhinovirus. Continue DuoNeb and acapella. She is confused this am - could be r/t starting Levaquin. Will switch to Rocephin for coverage of lung pathogens given her immunocompromised state. Hgb dropped 8.3-->7.0. Transfuse 1U PRBC's. Given her abdominal pain and drop in hgb, check CT abd/pelvis and UA. Insert Pepe for accurate I&O. Creatinine improving 2.1-->1.7-->1.5. Will stop IVF.
[2018-04-19] MEDS: ISOSORBIDE MONONITRATE ER 30 MG TABLET PO SCH (10:52)
[2018-04-19] MEDS: DULOXETINE 30 MG CAPSULE PO SCH (10:53)
[2018-04-19] MEDS: FERROUS SULFATE 324 MG TABLET PO SCH ×2 (10:53→18:18)
[2018-04-19] MEDS: ACYCLOVIR 800 MG PO SCH ×2 (10:54→21:45)
[2018-04-19] MEDS: REFRESH CELLUVISC 1% Eye Drops 0.4ml EACH EYE SCH ×4 (10:57→21:41)
[2018-04-19] MEDS: FLUOROMETHOLONE 0.1% EACH EYE SCH ×2 (10:58→21:45)
[2018-04-19] MEDS: EYE EACH EYE SCH ×2 (10:58→21:45)
--- NOTE | 2018-04-19 11:47 | CT Scan Report ---
Indication: suprapubic abdominal pain, anemia PROCEDURE: CT abdomen pelvis wo con: Encounter: Initial Comparison: 09/02/2017 Findings: The included portions of the lung bases demonstrate nonspecific dependent atelectasis and/or scarring. No pleural effusion. Heart size is normal. No pericardial effusion. Liver demonstrates some possible intrahepatic and extrahepatic biliary ductal dilation. Spleen is enlarged. Adrenal glands are normal. Kidneys are symmetric in size without hydronephrosis or perinephric collection. No definite obstructing ureteral calculus. There are some central vascular calcifications. Gallbladder is not seen. Pancreas is not well seen. Abdominal aorta is nonaneurysmal with extensive calcific atherosclerotic disease. No retroperitoneal or mesenteric adenopathy. No bowel distention or bowel wall thickening. Pelvis: No definite distal ureteral obstructing calculus. A normal appendix is not identified with certainty. No free fluid or pelvic sidewall adenopathy. There is no significant distal colonic diverticulosis or evidence for diverticulitis. Impression: Splenomegaly. Moderate intrahepatic and extrahepatic biliary ductal dilatation postcholecystectomy. No evidence for infectious or inflammatory process. No nephrolithiasis or evidence for obstructing ureteral calculus. No evidence for obstruction or free air. .
[2018-04-19] MEDS: CEFTRIAXONE 1 G in NS 100 ML IV SCH (12:18)
[2018-04-19 13:18] VITALS: BMI 26.6
[2018-04-19] MEDS: MINOCYCLINE 100 MG CAPSULE PO SCH ×2 (14:17→21:45)
[2018-04-19] MEDS: CLOPIDOGREL 75 MG TABLET PO SCH (21:43)
[2018-04-19] MEDS: ASPIRIN *EC* 81 MG TABLET PO SCH (21:45)
[2018-04-19] MEDS: FENOFIBRATE 145 MG TABLET PO SCH (21:45)
[2018-04-19] MEDS: MELATONIN 1 MG TABLET PO SCH (21:45)
[2018-04-20] MEDS: ISOSORBIDE MONONITRATE ER 30 MG TABLET PO SCH (07:10)
[2018-04-20] MEDS: LEVOTHYROXINE 137 MCG TABLET PO SCH (07:10)
[2018-04-20] MEDS: ALBUTEROL/IPRATROPIUM 2.5mg-0.5mg/3ml NEB AEROSOL SCH ×4 (07:46→19:49)
[2018-04-20] MEDS: EYE EACH EYE SCH ×2 (08:45→21:02)
[2018-04-20] MEDS: CEFTRIAXONE 1 G in NS 100 ML IV SCH (08:45)
[2018-04-20] MEDS: FLUOROMETHOLONE 0.1% EACH EYE SCH ×2 (08:45→21:02)
[2018-04-20] MEDS: REFRESH CELLUVISC 1% Eye Drops 0.4ml EACH EYE SCH ×4 (08:46→21:05)
[2018-04-20] MEDS: FERROUS SULFATE 324 MG TABLET PO SCH ×2 (08:46→17:31)
[2018-04-20] MEDS: DULOXETINE 30 MG CAPSULE PO SCH (08:46)
[2018-04-20] MEDS: MINOCYCLINE 100 MG CAPSULE PO SCH ×2 (08:46→21:05)
[2018-04-20] MEDS: ACYCLOVIR 800 MG PO SCH ×2 (08:46→21:05)
[2018-04-20] MEDS: NS FLUSH BAG 500ml IV PRN (09:00)
[2018-04-20] MEDS ORDERED: TBO-FILGRASTIM 480mcg/0.8ml INJECTION SQ ONE (09:30)
[2018-04-20] MEDS ORDERED: FUROSEMIDE 20 MG/2 ML INJECTION IVP ONE (10:06)
--- NOTE | 2018-04-20 10:14 | Progress Note ---
- Date 04/20/18 Subjective: F/U: Respiratory insufficiency w/ hypoxia - Suspicious for pneumonia Doing fair this morning-notes more cough (feels like things loosening up in her chest), not mobilizing sputum. Less SOA. Not having pain with breathing. No chest pressure, heaviness, or palpitations. Minimal appetite-trying to eat, but not hungry. Not reporting ab pain. Bowels slow. No f/c. Strength decreased. Objective Vital signs: Temperature 98.7 F 04/20/18 08:00 Pulse Rate 120 H 04/20/18 08:00 Respiratory Rate 04/20/18 10:00 Blood Pressure 126/67 04/20/18 08:00 Pulse Oximetry 97 04/20/18 08:00 Height/Weight/BMI: Height 1.57 m Weight 65.6 kg Body Mass Index 26.6 - Constitutional Present: well nourished, well developed, average body habitus, cooperative, other (Appears tired and weak) - Routine HEENT Exam Head: Present: normocephalic, atraumatic Eye: Present: EOMI, PERRL ENT: Present: mucous membranes moist - Routine Respiratory Exam Present: decreased breath sounds, wheezes (scattered). Absent: respiratory distress - Routine Cardiovascular Exam Present: RRR, no murmur - Routine Abdominal Exam Present: soft, normoactive bowel sounds, non distended, non tender - Routine Extremities Exam Present: no edema, pulses intact. Absent: cyanosis, clubbing - Routine Musculoskeletal Exam Musculoskeletal: Present: no clubbing or cyanosis - Routine Skin Exam Present: dry, warm - Routine Neurological Exam Present: alert, oriented X3, CN II-XII intact, moving all extremities, vision grossly intact, hearing grossly intact, normal speech. Absent: altered mental status - Routine Psychiatric Exam Present: normal affect, normal thought process, cooperative Results - Labs CBC & Chem 7: 04/20/18 04:35 04/20/18 04:35 Microbiology Results: Microbiology 04/18/18 21:30 Sputum, Expectorated Gram Stain - Preliminary 04/18/18 21:30 Sputum, Expectorated Sputum Culture - Preliminary Normal Resp Hemalatha incl. Yeast 04/17/18 19:47 Peripheral/Iv Start Blood Culture - Preliminary No Growth After 2 Days 04/17/18 19:39 Port/Picc Blood Culture - Preliminary No Growth After 2 Days Assessment and Plan (1) Dehydration Current visit: No Status: Inactive Assessment and Plan: Assessment Respiratory insufficiency w/ hypoxia Suspicious for pneumonia Rhinovirus positive Suprapubic abdominal pain (onset 04/18) Absolute neutropenia JULIAN, creatinine 2.1, baseline ~1.3 Hypernatremia (POA) Near syncope Dysphagia MDS - Dacogen and Neulasta q4 weeks per Dr. Santiago Pancytopenia, chronic CHF, diastolic CAD PVD, hx of right BKA Type II DM, peripheral neuropathy Stage III CKD Dyslipidemia Depression Chronic narcotic use Hypothyroid OP, OA SLE, Sjgren's Plan WBC with increase to 1.2; ANC 432. Hemoglobin increased to 8.1 post transfusion yesterday. Platelets decreased at 23. Will repeat Granix 480mcg today-recheck counts tomorrow. Continue with ceftriaxone for pulmonary coverage. Continue DuoNeb and acapella. Wean O2 as able. Furosemide 20mg x1 - renal status improved: creatinine 1.4, potassium 4.8. Add routine Miralax as bowels slow - hold with loose stool. Sugars showing increase - will start Lantus at 4 units (home dose 9). Encourage PT/OT to help improve functional status. Repeat CBC in am due to pancytopenia. Recheck BMP in am due to medication use. Resuscitation Status: Do Not Resuscitate - Time spent with patient Time with patient PN: 25 minutes - Physician Narrative Physician: Arsalan Grimm MD Narrative: Date: 04/20/18 Time: 1008 Hospital Course Summary Disclaimer: The visit summary below is not to be considered part of the above Progress Note. Hospital Course: 04/17/18 Admit, observation status. IVF: 1/2 NS at 100 mL/hr x1L. Repeat labs in am. Hold Torsemide. BP stable in ED. Check orthostatics BID. Trend troponin; pt with significant coronary hx. Monitor telemetry. Printed Circuit Board Panels Developer : Dr. Hudson. Consult speech therapy. Consult PT/OT. Monitor BG; carb consistent diet. Advanced directives: Spouse is DPOA. DNR. 04/18/18 Will change to inpatient admission status secondary to MDS with neutropenia and hypoxia/cough suspicious for pneumonia. Repeat CXR. Obtain sputum culture and respiratory panel. Start DuoNeb and acapella. Start levofloxacin for pulmonary coverage. ANC 0.6 Follow labs. Troponin were neg. Torsemide remains on hold. Creatinine with improvement from 2.1 at presentation to 1.7. Start 1/2NS at 50cc/hr as oral intake low. Speech recommends mechanical soft diet. Not eating much but drinking Ensure. Blood sugars running low - will hold Lantus. PT rec home with HH. 04/19/18 Pt tested + for rhinovirus. Continue DuoNeb and acapella. She is confused this am - could be r/t starting Levaquin. Will switch to Rocephin for coverage of lung pathogens given her immunocompromised state. Hgb dropped 8.3-->7.0. Transfuse 1U PRBC's. Given her abdominal pain and drop in hgb, check CT abd/pelvis and UA. Insert Pepe for accurate I&O. Creatinine improving 2.1-->1.7-->1.5. Will stop IVF. 04/20/18 WBC with increase to 1.2; ANC 432. Hemoglobin increased to 8.1 post transfusion yesterday. Platelets decreased at 23. Will repeat Granix 480mcg today-recheck counts tomorrow. Continue with ceftriaxone for pulmonary coverage. Continue DuoNeb and acapella. Wean O2 as able. Furosemide 20mg x1 - renal status improved: creatinine 1.4, potassium 4.8. Add routine Miralax as bowels slow - hold with loose stool. Sugars showing increase - will start Lantus at 4 units (home dose 9). Encourage PT/OT to help improve functional status.
[2018-04-20] MEDS: POLYETHYL GLYCOL 3350 17gm PACKET PO SCH (11:41)
[2018-04-20] MEDS: INSULIN REGULAR, HUMAN 100 UNIT/ML INJECTION SQ PRN (12:43)
[2018-04-20] MEDS: HYDROMORPHONE 2 MG TABLET PO PRN (15:20)
[2018-04-20] MEDS: SALINE FLUSH 10ml SYRINGE IV PRN (15:22)
[2018-04-20] MEDS ORDERED: INSULIN GLARGINE 100unit/ml INJECTION SQ SCH (21:00)
[2018-04-20] MEDS: CLOPIDOGREL 75 MG TABLET PO SCH (21:03)
[2018-04-20] MEDS: ASPIRIN *EC* 81 MG TABLET PO SCH (21:05)
[2018-04-20] MEDS: MELATONIN 1 MG TABLET PO SCH (21:05)
[2018-04-20] MEDS: FENOFIBRATE 145 MG TABLET PO SCH (21:05)
[2018-04-21] MEDS: LEVOTHYROXINE 137 MCG TABLET PO SCH (06:42)
[2018-04-21] MEDS: ISOSORBIDE MONONITRATE ER 30 MG TABLET PO SCH (06:43)
[2018-04-21] MEDS: ALBUTEROL/IPRATROPIUM 2.5mg-0.5mg/3ml NEB AEROSOL SCH ×4 (07:06→19:21)
[2018-04-21] MEDS: EYE EACH EYE SCH ×2 (08:33→20:26)
[2018-04-21] MEDS: FLUOROMETHOLONE 0.1% EACH EYE SCH ×2 (08:33→20:26)
[2018-04-21] MEDS: CEFTRIAXONE 1 G in NS 100 ML IV SCH (08:33)
[2018-04-21] MEDS: POLYETHYL GLYCOL 3350 17gm PACKET PO SCH (08:33)
[2018-04-21] MEDS: ACYCLOVIR 800 MG PO SCH ×2 (08:34→20:27)
[2018-04-21] MEDS: MINOCYCLINE 100 MG CAPSULE PO SCH ×2 (08:34→20:27)
[2018-04-21] MEDS: FERROUS SULFATE 324 MG TABLET PO SCH ×2 (08:34→17:43)
[2018-04-21] MEDS: REFRESH CELLUVISC 1% Eye Drops 0.4ml EACH EYE SCH ×4 (08:34→20:26)
[2018-04-21] MEDS: DULOXETINE 30 MG CAPSULE PO SCH (08:34)
[2018-04-21] MEDS: SALINE FLUSH 10ml SYRINGE IV PRN (08:35)
--- NOTE | 2018-04-21 11:22 | Progress Note ---
- Date 04/21/18 Subjective: F/U: Respiratory insufficiency w/ hypoxia - Suspicious for pneumonia, MDS with pancytopenia Doing okay. Notes cough with some congestion, not mobilizing sputum. No pain with breathing. Little appetite; no ab pain or nausea. Feels like she need to have a bowel movement. Strength decreased but is working with therapy with every opportunity. Objective Vital signs: Temperature 96.6 F L 04/21/18 07:33 Pulse Rate 114 H 04/21/18 07:33 Respiratory Rate 16 04/21/18 10:16 Blood Pressure 120/71 04/21/18 07:33 Pulse Oximetry 94 04/21/18 10:16 Height/Weight/BMI: Height 1.57 m Weight 65.9 kg Body Mass Index 26.6 - Constitutional Present: well nourished, well developed, average body habitus, cooperative - Routine HEENT Exam Head: Present: normocephalic Eye: Present: EOMI, PERRL ENT: Present: mucous membranes moist - Routine Respiratory Exam Present: decreased breath sounds, wheezes, crackles, distant breath sounds, diminished air movement. Absent: respiratory distress - Routine Cardiovascular Exam Present: RRR, no murmur - Routine Abdominal Exam Present: soft, non distended, non tender. Absent: normoactive bowel sounds ( decreased), guarding - Routine Extremities Exam Present: edema (Trace LE). Absent: cyanosis, clubbing - Routine Musculoskeletal Exam Musculoskeletal: Present: no clubbing or cyanosis - Routine Skin Exam Present: dry, warm - Routine Neurological Exam Present: alert, oriented X3, CN II-XII intact, moving all extremities, vision grossly intact, hearing grossly intact, normal speech. Absent: altered mental status - Routine Psychiatric Exam Present: normal affect, normal thought process, cooperative. Absent: anxious, agitated Results - Labs CBC & Chem 7: 04/21/18 04:28 04/21/18 04:28 Microbiology Results: Microbiology 04/18/18 21:30 Sputum, Expectorated Gram Stain - Final 04/18/18 21:30 Sputum, Expectorated Sputum Culture - Preliminary Normal Resp Hemalatha incl. Yeast 04/17/18 19:39 Port/Picc Blood Culture - Preliminary No Growth After 3 Days 04/17/18 19:47 Peripheral/Iv Start Blood Culture - Preliminary No Growth After 3 Days Assessment and Plan (1) Myelodysplasia (myelodysplastic syndrome) Current visit: Yes Status: Acute (2) Acute kidney injury Current visit: Yes Status: Acute (3) Respiratory insufficiency Current visit: Yes Status: Acute Assessment and Plan: Assessment Respiratory insufficiency w/ hypoxia Suspicious for pneumonia Rhinovirus positive Suprapubic abdominal pain (onset 04/18) Absolute neutropenia JULIAN, creatinine 2.1, baseline ~1.3 Hypernatremia (POA) Near syncope Dysphagia MDS - Dacogen and Neulasta q4 weeks per Dr. Santiago Pancytopenia, chronic CHF, diastolic CAD PVD, hx of right BKA Type II DM, peripheral neuropathy Stage III CKD Dyslipidemia Depression Chronic narcotic use Hypothyroid OP, OA SLE, Sjgren's Plan WBC improving - 1.6 with ANC 896. Hemoglobin stable at 8.2. Platelets decreased at 22. Will repeat Granix 480mcg today - recheck counts tomorrow. Continue with ceftriaxone for pulmonary coverage. Continue DuoNeb and acapella. Wean O2 as able. Will give Bumex 0.5mg IV x1 - creatinine stable at 1.4. Add routine Miralax as bowels slow - hold with loose stool. Sugars still with elevation; will increase Lantus to 6 units (home dose 9). Encourage PT/OT to help improve functional status. Repeat CBC in am due to pancytopenia. Recheck BMP & Mg in am due to medication use. Resuscitation Status: Do Not Resuscitate - Time spent with patient Time with patient PN: 25 minutes - Physician Narrative Physician: Arsalan Grimm MD Narrative: Date: 04/21/18 Time: 1119 Hospital Course Summary Disclaimer: The visit summary below is not to be considered part of the above Progress Note. Hospital Course: 04/17/18 Admit, observation status. IVF: 1/2 NS at 100 mL/hr x1L. Repeat labs in am. Hold Torsemide. BP stable in ED. Check orthostatics BID. Trend troponin; pt with significant coronary hx. Monitor telemetry. Graphics Software Engineer : Dr. Hudson. Consult speech therapy. Consult PT/OT. Monitor BG; carb consistent diet. Advanced directives: Spouse is DPOA. DNR. 04/18/18 Will change to inpatient admission status secondary to MDS with neutropenia and hypoxia/cough suspicious for pneumonia. Repeat CXR. Obtain sputum culture and respiratory panel. Start DuoNeb and acapella. Start levofloxacin for pulmonary coverage. ANC 0.6 Follow labs. Troponin were neg. Torsemide remains on hold. Creatinine with improvement from 2.1 at presentation to 1.7. Start 1/2NS at 50cc/hr as oral intake low. Speech recommends mechanical soft diet. Not eating much but drinking Ensure. Blood sugars running low - will hold Lantus. PT rec home with HH. 04/19/18 Pt tested + for rhinovirus. Continue DuoNeb and acapella. She is confused this am - could be r/t starting Levaquin. Will switch to Rocephin for coverage of lung pathogens given her immunocompromised state. Hgb dropped 8.3-->7.0. Transfuse 1U PRBC's. Given her abdominal pain and drop in hgb, check CT abd/pelvis and UA. Insert Pepe for accurate I&O. Creatinine improving 2.1-->1.7-->1.5. Will stop IVF. 04/20/18 WBC with increase to 1.2; ANC 432. Hemoglobin increased to 8.1 post transfusion yesterday. Platelets decreased at 23. Will repeat Granix 480mcg today-recheck counts tomorrow. Continue with ceftriaxone for pulmonary coverage. Continue DuoNeb and acapella. Wean O2 as able. Furosemide 20mg x1 - renal status improved: creatinine 1.4, potassium 4.8. Add routine Miralax as bowels slow - hold with loose stool. Sugars showing increase - will start Lantus at 4 units (home dose 9). Encourage PT/OT to help improve functional status. 04/21/18 WBC improving - 1.6 with ANC 896. Hemoglobin stable at 8.2. Platelets decreased at 22. Will repeat Granix 480mcg today - recheck counts tomorrow. Continue with ceftriaxone for pulmonary coverage. Continue DuoNeb and acapella. Wean O2 as able. Will give Bumex 0.5mg IV x1 - creatinine stable at 1.4. Add routine Miralax as bowels slow - hold with loose stool. Sugars still with elevation; will increase Lantus to 6 units (home dose 9).
[2018-04-21] MEDS ORDERED: TBO-FILGRASTIM 480mcg/0.8ml INJECTION SQ ONE (11:30)
--- NOTE | 2018-04-21 14:59 | Wound Care Progress Note ---
Wound Center Progress Note: Pt seen for wound follow up/new skin tear to L posterior calf. Spoke with Mamta WHEATLEY, she reports pt was moving her leg in bed across the sheets when she acquired a large skin tear to the posterior aspect of her calf. She informed the doctor of the injury. RN applied saline moistened promogran to wound, approximated skin edges with steri strips, and covered skin tear with mepilex to help control the bleeding. Wound not visualized at this time, dressing not removed due to not wanting injury to start bleeding again. Will assess wound on Tuesday.
[2018-04-21] MEDS: MELATONIN 1 MG TABLET PO SCH (20:27)
[2018-04-21] MEDS: FENOFIBRATE 145 MG TABLET PO SCH (20:27)
[2018-04-21] MEDS: INSULIN GLARGINE 100unit/ml INJECTION SQ SCH (20:28)
[2018-04-21] MEDS: ASPIRIN *EC* 81 MG TABLET PO SCH (20:28)
[2018-04-21] MEDS: INSULIN REGULAR, HUMAN 100 UNIT/ML INJECTION SQ PRN (20:28)
[2018-04-21] MEDS: CLOPIDOGREL 75 MG TABLET PO SCH (20:28)
[2018-04-21] MEDS: HYDROMORPHONE 2 MG TABLET PO PRN (21:55)
[2018-04-22] MEDS: ISOSORBIDE MONONITRATE ER 30 MG TABLET PO SCH (07:00)
[2018-04-22] MEDS: LEVOTHYROXINE 137 MCG TABLET PO SCH (07:00)
[2018-04-22] MEDS: ALBUTEROL/IPRATROPIUM 2.5mg-0.5mg/3ml NEB AEROSOL SCH ×4 (07:51→19:25)
[2018-04-22] MEDS: REFRESH CELLUVISC 1% Eye Drops 0.4ml EACH EYE SCH ×4 (08:24→20:53)
[2018-04-22] MEDS: DULOXETINE 30 MG CAPSULE PO SCH (08:24)
[2018-04-22] MEDS: FLUOROMETHOLONE 0.1% EACH EYE SCH ×2 (08:24→20:54)
[2018-04-22] MEDS: MINOCYCLINE 100 MG CAPSULE PO SCH ×2 (08:24→20:53)
[2018-04-22] MEDS: ACYCLOVIR 800 MG PO SCH ×2 (08:24→20:53)
[2018-04-22] MEDS: EYE EACH EYE SCH ×2 (08:24→20:54)
[2018-04-22] MEDS: POLYETHYL GLYCOL 3350 17gm PACKET PO SCH (08:24)
[2018-04-22] MEDS: NS FLUSH BAG 500ml IV PRN (08:25)
[2018-04-22] MEDS: FERROUS SULFATE 324 MG TABLET PO SCH ×2 (08:25→17:15)
[2018-04-22] MEDS: CEFTRIAXONE 1 G in NS 100 ML IV SCH (08:30)
[2018-04-22] MEDS: SALINE FLUSH 10ml SYRINGE IV PRN ×2 (08:30→17:14)
[2018-04-22] MEDS ORDERED: BISACODYL 10 MG SUPPOSITORY RECTALLY PRN (10:04)
[2018-04-22] MEDS ORDERED: METHYLPREDNISOLONE SOD SUCC 125mg/2ml INJECTION IVP ONE (12:12)
--- NOTE | 2018-04-22 12:22 | Progress Note ---
- Date 04/22/18 Subjective: F/U: Respiratory insufficiency w/ hypoxia - Suspicious for pneumonia, MDS with pancytopenia Continues with cough and chest congestion. Not producing sputum. Feels winded. Little improvement to appetite. Mouth feels dry. Notes having a nosebleed overnight. Stools slow-needed help with Dulcolax suppository. Strength decreased. Had skin tear to left leg yesterday with positional change. Notes episode of confusion overnight. Objective Vital signs: Temperature 97.2 F 04/22/18 08:08 Pulse Rate 114 H 04/22/18 08:08 Respiratory Rate 20 04/22/18 11:24 Blood Pressure 133/69 04/22/18 08:08 Pulse Oximetry 99 04/22/18 08:08 Height/Weight/BMI: Height 1.57 m Weight 66.3 kg Body Mass Index 26.6 - Constitutional Present: well nourished, well developed, cooperative - Routine HEENT Exam Head: Present: normocephalic, atraumatic Eye: Present: EOMI, PERRL, normal accommodation ENT: Present: mucous membranes moist - Routine Respiratory Exam Present: decreased breath sounds, wheezes, crackles. Absent: respiratory distress - Routine Cardiovascular Exam Present: no murmur, tachycardia (Regular ) - Routine Abdominal Exam Present: soft, non distended, non tender. Absent: normoactive bowel sounds ( Decreased) - Routine Extremities Exam Present: no edema. Absent: cyanosis, clubbing - Routine Musculoskeletal Exam Musculoskeletal: Present: no clubbing or cyanosis - Routine Skin Exam Present: dry, warm - Routine Neurological Exam Present: alert, oriented X3, CN II-XII intact, moving all extremities, vision grossly intact, hearing grossly intact, normal speech. Absent: altered mental status - Routine Psychiatric Exam Present: normal affect, normal thought process, cooperative Results - Labs CBC & Chem 7: 04/22/18 04:51 04/22/18 04:51 Microbiology Results: Microbiology 04/18/18 21:30 Sputum, Expectorated Gram Stain - Final 04/18/18 21:30 Sputum, Expectorated Sputum Culture - Final Normal Resp Hemalatha incl. Yeast 04/17/18 19:39 Port/Picc Blood Culture - Preliminary No Growth After 4 Days 04/17/18 19:47 Peripheral/Iv Start Blood Culture - Preliminary No Growth After 4 Days Assessment and Plan (1) Myelodysplasia (myelodysplastic syndrome) Current visit: Yes Status: Acute (2) Acute kidney injury Current visit: Yes Status: Acute (3) Respiratory insufficiency Current visit: Yes Status: Acute Assessment and Plan: Assessment Respiratory insufficiency w/ hypoxia Suspicious for pneumonia Rhinovirus positive Suprapubic abdominal pain (onset 04/18) Absolute neutropenia JULIAN, creatinine 2.1, baseline ~1.3 Hypernatremia (POA) Near syncope Dysphagia MDS - Dacogen and Neulasta q4 weeks per Dr. Santiago Pancytopenia, chronic CHF, diastolic CAD PVD, hx of right BKA Type II DM, peripheral neuropathy Stage III CKD Dyslipidemia Depression Chronic narcotic use Hypothyroid OP, OA SLE, Sjgren's Plan WBC improving - 2.5 with ANC 1800. Hemoglobin stable at 8.4. Platelets decreased at 22. With continued cough will start Mucinex DM BID. Add nasal saline to moisturize nasal mucosa. Continue with ceftriaxone for pulmonary coverage. Continue DuoNeb and acapella. Wean O2 as able. Give Solu-Medrol 125mg x1 to help decrease wheezing. Will restart home torsemide at 5mg - monitoring volume status, BP, and renal status. Sugars improved; continue Lantus at 6 units (home dose 9). Oral drive decreased. Repeat CBC in am due to pancytopenia. Recheck BMP & Mg in am due to medication use. Case discussed with patient's . Resuscitation Status: Do Not Resuscitate - Time spent with patient Time with patient PN: 25 minutes - Physician Narrative Physician: Arsalan Grimm MD Narrative: Date: 04/22/18 Time: 1219 Hospital Course Summary Disclaimer: The visit summary below is not to be considered part of the above Progress Note. Hospital Course: 04/17/18 Admit, observation status. IVF: 1/2 NS at 100 mL/hr x1L. Repeat labs in am. Hold Torsemide. BP stable in ED. Check orthostatics BID. Trend troponin; pt with significant coronary hx. Monitor telemetry. Electric Accounting Machine Operator : Dr. Hudson. Consult speech therapy. Consult PT/OT. Monitor BG; carb consistent diet. Advanced directives: Spouse is DPOA. DNR. 04/18/18 Will change to inpatient admission status secondary to MDS with neutropenia and hypoxia/cough suspicious for pneumonia. Repeat CXR. Obtain sputum culture and respiratory panel. Start DuoNeb and acapella. Start levofloxacin for pulmonary coverage. ANC 0.6 Follow labs. Troponin were neg. Torsemide remains on hold. Creatinine with improvement from 2.1 at presentation to 1.7. Start 1/2NS at 50cc/hr as oral intake low. Speech recommends mechanical soft diet. Not eating much but drinking Ensure. Blood sugars running low - will hold Lantus. PT rec home with HH. 04/19/18 Pt tested + for rhinovirus. Continue DuoNeb and acapella. She is confused this am - could be r/t starting Levaquin. Will switch to Rocephin for coverage of lung pathogens given her immunocompromised state. Hgb dropped 8.3-->7.0. Transfuse 1U PRBC's. Given her abdominal pain and drop in hgb, check CT abd/pelvis and UA. Insert Pepe for accurate I&O. Creatinine improving 2.1-->1.7-->1.5. Will stop IVF. 04/20/18 WBC with increase to 1.2; ANC 432. Hemoglobin increased to 8.1 post transfusion yesterday. Platelets decreased at 23. Will repeat Granix 480mcg today-recheck counts tomorrow. Continue with ceftriaxone for pulmonary coverage. Continue DuoNeb and acapella. Wean O2 as able. Furosemide 20mg x1 - renal status improved: creatinine 1.4, potassium 4.8. Add routine Miralax as bowels slow - hold with loose stool. Sugars showing increase - will start Lantus at 4 units (home dose 9). Encourage PT/OT to help improve functional status. 04/21/18 WBC improving - 1.6 with ANC 896. Hemoglobin stable at 8.2. Platelets decreased at 22. Will repeat Granix 480mcg today - recheck counts tomorrow. Continue with ceftriaxone for pulmonary coverage. Continue DuoNeb and acapella. Wean O2 as able. Will give Bumex 0.5mg IV x1 - creatinine stable at 1.4. Add routine Miralax as bowels slow - hold with loose stool. Sugars still with elevation; will increase Lantus to 6 units (home dose 9). 04/22/18 WBC improving - 2.5 with ANC 1800. Hemoglobin stable at 8.4. Platelets decreased at 22. With continued cough will start Mucinex DM BID. Add nasal saline to moisturize nasal mucosa. Continue with ceftriaxone for pulmonary coverage. Continue DuoNeb and acapella. Wean O2 as able. Give Solu-Medrol 125mg x1 to help decrease wheezing. Will restart home torsemide at 5mg - monitoring volume status, BP, and renal status. Sugars improved; continue Lantus at 6 units (home dose 9). Oral drive decreased.
[2018-04-22] MEDS: GUAIFENESIN/D-METHORPHAN 600mg/30mg TABLET PO SCH ×2 (13:06→20:53)
[2018-04-22] MEDS: SALINE 0.65% NASAL SPRAY 44 ML BOTTLE EA NOSTRIL SCH ×4 (13:06→20:53)
[2018-04-22] MEDS: TORSEMIDE 20 MG TABLET PO SCH (15:29)
[2018-04-22] MEDS: INSULIN REGULAR, HUMAN 100 UNIT/ML INJECTION SQ PRN ×2 (15:37→20:54)
[2018-04-22] MEDS ORDERED: FALL RISK - PHARMACY CONSULT MC ONE (16:39)
[2018-04-22] MEDS: HYDROMORPHONE 2 MG TABLET PO PRN (17:51)
[2018-04-22] MEDS: FENOFIBRATE 145 MG TABLET PO SCH (20:52)
[2018-04-22] MEDS: MELATONIN 1 MG TABLET PO SCH (20:53)
[2018-04-22] MEDS: ASPIRIN *EC* 81 MG TABLET PO SCH (20:53)
[2018-04-22] MEDS: CLOPIDOGREL 75 MG TABLET PO SCH (20:53)
[2018-04-22] MEDS: INSULIN GLARGINE 100unit/ml INJECTION SQ SCH (20:55)
[2018-04-23] MEDS ORDERED: MELATONIN 1 MG TABLET PO ONE (01:43)
[2018-04-23] MEDS: LEVOTHYROXINE 137 MCG TABLET PO SCH (07:03)
[2018-04-23] MEDS: ISOSORBIDE MONONITRATE ER 30 MG TABLET PO SCH (07:03)
[2018-04-23] MEDS: ALBUTEROL/IPRATROPIUM 2.5mg-0.5mg/3ml NEB AEROSOL SCH ×4 (07:27→18:55)
[2018-04-23] MEDS: EYE EACH EYE SCH ×2 (08:09→20:08)
[2018-04-23] MEDS: FLUOROMETHOLONE 0.1% EACH EYE SCH ×2 (08:09→20:08)
[2018-04-23] MEDS: REFRESH CELLUVISC 1% Eye Drops 0.4ml EACH EYE SCH ×4 (08:10→20:04)
[2018-04-23] MEDS: POLYETHYL GLYCOL 3350 17gm PACKET PO SCH (08:10)
[2018-04-23] MEDS: SALINE 0.65% NASAL SPRAY 44 ML BOTTLE EA NOSTRIL SCH ×4 (08:10→20:08)
[2018-04-23] MEDS: GUAIFENESIN/D-METHORPHAN 600mg/30mg TABLET PO SCH ×2 (08:10→20:03)
[2018-04-23] MEDS: ACYCLOVIR 800 MG PO SCH ×2 (08:10→20:02)
[2018-04-23] MEDS: DULOXETINE 30 MG CAPSULE PO SCH (08:10)
[2018-04-23] MEDS: TORSEMIDE 20 MG TABLET PO SCH (08:11)
[2018-04-23] MEDS: MINOCYCLINE 100 MG CAPSULE PO SCH ×2 (08:11→20:03)
[2018-04-23] MEDS: FERROUS SULFATE 324 MG TABLET PO SCH ×2 (08:11→16:48)
[2018-04-23] MEDS: CEFTRIAXONE 1 G in NS 100 ML IV SCH (10:12)
--- NOTE | 2018-04-23 15:37 | Progress Note ---
- Date 0 04/23/18 Subjective: F/U: Respiratory insufficiency w/ hypoxia - Suspicious for pneumonia, MDS with pancytopenia About the same-notes cough with some congestion. Little change with Solu-Medrol x1 yesterday and starting Mucinex DM. Nasal saline is helping nose to be less dry and sore. No ab pain or nausea-still little appetite. Bowels moving. Strength fair. Not feeling dizzy/unsteady with positional changes. Has been walking in halls with walker. No f/c. Objective Vital signs: Temperature 97.3 F 04/23/18 15:06 Pulse Rate 101 H 04/23/18 15:06 Respiratory Rate 16 04/23/18 15:06 Blood Pressure 130/69 04/23/18 15:06 Pulse Oximetry 95 04/23/18 11:12 Height/Weight/BMI: Height 1.57 m Weight 66.1 kg Body Mass Index 26.6 - Constitutional Present: well nourished, well developed, cooperative - Routine HEENT Exam Head: Present: normocephalic, atraumatic Eye: Present: EOMI, PERRL, normal accommodation ENT: Present: mucous membranes moist - Routine Respiratory Exam Present: decreased breath sounds, wheezes, distant breath sounds, diminished air movement. Absent: respiratory distress - Routine Cardiovascular Exam Present: RRR, no murmur - Routine Abdominal Exam Present: soft, normoactive bowel sounds, non distended, non tender - Routine Extremities Exam Absent: cyanosis, clubbing, edema - Routine Musculoskeletal Exam Musculoskeletal: Present: no clubbing or cyanosis - Routine Skin Exam Present: dry, warm - Routine Neurological Exam Present: alert, oriented X3, CN II-XII intact, moving all extremities, vision grossly intact, hearing grossly intact, normal speech. Absent: altered mental status - Routine Psychiatric Exam Present: normal affect, normal thought process, cooperative Results - Labs CBC & Chem 7: 04/23/18 05:02 04/23/18 05:02 Microbiology Results: Microbiology 04/22/18 19:54 Sputum, Expectorated Gram Stain - Preliminary 04/17/18 19:47 Peripheral/Iv Start Blood Culture - Final No Growth After 5 Days 04/17/18 19:39 Port/Picc Blood Culture - Final No Growth After 5 Days 04/18/18 21:30 Sputum, Expectorated Gram Stain - Final 04/18/18 21:30 Sputum, Expectorated Sputum Culture - Final Normal Resp Hemalatha incl. Yeast Assessment and Plan (1) Myelodysplasia (myelodysplastic syndrome) Current visit: Yes Status: Acute (2) Acute kidney injury Current visit: Yes Status: Acute (3) Respiratory insufficiency Current visit: Yes Status: Acute Assessment and Plan: Assessment Respiratory insufficiency w/ hypoxia Suspicious for pneumonia Rhinovirus positive Suprapubic abdominal pain (onset 04/18) Absolute neutropenia JULIAN, creatinine 2.1, baseline ~1.3 Hypernatremia (POA) Near syncope Dysphagia MDS - Dacogen and Neulasta q4 weeks per Dr. Santiago Pancytopenia, chronic CHF, diastolic CAD PVD, hx of right BKA Type II DM, peripheral neuropathy Stage III CKD Dyslipidemia Depression Chronic narcotic use Hypothyroid OP, OA SLE, Sjgren's Plan WBC stable - 2.3 with ANC 2380. Hemoglobin stable at 8.2. Platelets stable at 26. Continue with ceftriaxone for pulmonary coverage. Continue DuoNeb, acapella Mucinex. Wean O2 as able - 1L to maintain saturations. Start Solu-Medrol 62.5mg q6h to help decrease wheezing. Sugars increased after Solu-Medrol yesterday; will increase Lantus to 8 units ( home dose 9). Oral drive decreased. Encourage ambulation to help strength. Repeat CBC in am due to pancytopenia. Recheck BMP & Mg in am due to medication use. Resuscitation Status: Do Not Resuscitate - Time spent with patient Time with patient PN: 25 minutes - Physician Narrative Physician: Arsalan Grimm MD Narrative: Date: 04/23/18 Time: 9172 Hospital Course Summary Disclaimer: The visit summary below is not to be considered part of the above Progress Note. Hospital Course: 04/17/18 Admit, observation status. IVF: 1/2 NS at 100 mL/hr x1L. Repeat labs in am. Hold Torsemide. BP stable in ED. Check orthostatics BID. Trend troponin; pt with significant coronary hx. Monitor telemetry. Managing Principal : Dr. Hudson. Consult speech therapy. Consult PT/OT. Monitor BG; carb consistent diet. Advanced directives: Spouse is DPOA. DNR. 04/18/18 Will change to inpatient admission status secondary to MDS with neutropenia and hypoxia/cough suspicious for pneumonia. Repeat CXR. Obtain sputum culture and respiratory panel. Start DuoNeb and acapella. Start levofloxacin for pulmonary coverage. ANC 0.6 Follow labs. Troponin were neg. Torsemide remains on hold. Creatinine with improvement from 2.1 at presentation to 1.7. Start 1/2NS at 50cc/hr as oral intake low. Speech recommends mechanical soft diet. Not eating much but drinking Ensure. Blood sugars running low - will hold Lantus. PT rec home with HH. 04/19/18 Pt tested + for rhinovirus. Continue DuoNeb and acapella. She is confused this am - could be r/t starting Levaquin. Will switch to Rocephin for coverage of lung pathogens given her immunocompromised state. Hgb dropped 8.3-->7.0. Transfuse 1U PRBC's. Given her abdominal pain and drop in hgb, check CT abd/pelvis and UA. Insert Pepe for accurate I&O. Creatinine improving 2.1-->1.7-->1.5. Will stop IVF. 04/20/18 WBC with increase to 1.2; ANC 432. Hemoglobin increased to 8.1 post transfusion yesterday. Platelets decreased at 23. Will repeat Granix 480mcg today-recheck counts tomorrow. Continue with ceftriaxone for pulmonary coverage. Continue DuoNeb and acapella. Wean O2 as able. Furosemide 20mg x1 - renal status improved: creatinine 1.4, potassium 4.8. Add routine Miralax as bowels slow - hold with loose stool. Sugars showing increase - will start Lantus at 4 units (home dose 9). Encourage PT/OT to help improve functional status. 04/21/18 WBC improving - 1.6 with ANC 896. Hemoglobin stable at 8.2. Platelets decreased at 22. Will repeat Granix 480mcg today - recheck counts tomorrow. Continue with ceftriaxone for pulmonary coverage. Continue DuoNeb and acapella. Wean O2 as able. Will give Bumex 0.5mg IV x1 - creatinine stable at 1.4. Add routine Miralax as bowels slow - hold with loose stool. Sugars still with elevation; will increase Lantus to 6 units (home dose 9). 04/22/18 WBC improving - 2.5 with ANC 1800. Hemoglobin stable at 8.4. Platelets decreased at 22. With continued cough will start Mucinex DM BID. Add nasal saline to moisturize nasal mucosa. Continue with ceftriaxone for pulmonary coverage. Continue DuoNeb and acapella. Wean O2 as able. Give Solu-Medrol 125mg x1 to help decrease wheezing. Will restart home torsemide at 5mg - monitoring volume status, BP, and renal status. Sugars improved; continue Lantus at 6 units (home dose 9). Oral drive decreased. 04/23/18 WBC stable - 2.3 with ANC 2380. Hemoglobin stable at 8.2. Platelets stable at 26. Continue with ceftriaxone for pulmonary coverage. Continue DuoNeb, acapella Mucinex. Wean O2 as able - 1L to maintain saturations. Start Solu-Medrol 62.5mg q6h to help decrease wheezing. Sugars increased after Solu-Medrol yesterday; will increase Lantus to 8 units ( home dose 9). Oral drive decreased. Encourage ambulation to help strength.
[2018-04-23] MEDS: METHYLPREDNISOLONE SOD SUCC 125mg/2ml INJECTION IVP SCH ×2 (16:47→20:06)
[2018-04-23] MEDS: SALINE FLUSH 10ml SYRINGE IV PRN (16:48)
[2018-04-23] MEDS: FENOFIBRATE 145 MG TABLET PO SCH (20:02)
[2018-04-23] MEDS: MELATONIN 1 MG TABLET PO SCH (20:02)
[2018-04-23] MEDS: CLOPIDOGREL 75 MG TABLET PO SCH (20:05)
[2018-04-23] MEDS: ASPIRIN *EC* 81 MG TABLET PO SCH (20:06)
[2018-04-23] MEDS ORDERED: INSULIN GLARGINE 100unit/ml INJECTION SQ SCH (21:00)
[2018-04-23] MEDS: CYCLOBENZAPRINE 5 MG TABLET PO PRN (23:45)
[2018-04-24] MEDS: METHYLPREDNISOLONE SOD SUCC 125mg/2ml INJECTION IVP SCH ×3 (04:30→22:07)
[2018-04-24] MEDS: LEVOTHYROXINE 137 MCG TABLET PO SCH (07:00)
[2018-04-24] MEDS: ALBUTEROL/IPRATROPIUM 2.5mg-0.5mg/3ml NEB AEROSOL SCH ×4 (07:34→20:16)
[2018-04-24] MEDS: ISOSORBIDE MONONITRATE ER 30 MG TABLET PO SCH (07:52)
--- NOTE | 2018-04-24 08:14 | XRay Report ---
LOCATION OF DICTATION: [facility] EXAM: XR chest 2V HISTORY: F/U - cough/wheeze COMPARISON: April 18, 2018 and April 17, 2018 FINDINGS: The heart size is upper limits normal. The mediastinal configuration is unremarkable. Right chest port in place with the tip overlying the mid SVC. Limited depth of inspiration with some crowding of the interstitial lung markings. Elevation of the left hemidiaphragm is demonstrated. There is mild basilar atelectasis bilaterally. There are no consolidating opacities or pleural effusions. There is no evidence for a pneumothorax. Vertebroplasty within the mid to lower thoracic vertebra. IMPRESSION: 1. Stable elevation of the left hemidiaphragm and bibasilar atelectasis without evidence for developing pneumonia. Limited depth of inspiration. 2. Upper limits normal sized heart without CHF. .
[2018-04-24] MEDS: SALINE FLUSH 10ml SYRINGE IV PRN (08:26)
[2018-04-24] MEDS: MINOCYCLINE 100 MG CAPSULE PO SCH ×2 (08:26→22:02)
[2018-04-24] MEDS: ACYCLOVIR 800 MG PO SCH ×2 (08:26→22:03)
[2018-04-24] MEDS: DULOXETINE 30 MG CAPSULE PO SCH (08:26)
[2018-04-24] MEDS: FERROUS SULFATE 324 MG TABLET PO SCH ×2 (08:26→16:45)
[2018-04-24] MEDS: REFRESH CELLUVISC 1% Eye Drops 0.4ml EACH EYE SCH ×4 (08:27→22:05)
[2018-04-24] MEDS: SALINE 0.65% NASAL SPRAY 44 ML BOTTLE EA NOSTRIL SCH ×4 (08:27→22:06)
[2018-04-24] MEDS: FLUOROMETHOLONE 0.1% EACH EYE SCH ×2 (08:27→22:06)
[2018-04-24] MEDS: EYE EACH EYE SCH ×2 (08:27→22:06)
[2018-04-24] MEDS: POLYETHYL GLYCOL 3350 17gm PACKET PO SCH (08:28)
[2018-04-24] MEDS: TORSEMIDE 20 MG TABLET PO SCH (08:28)
[2018-04-24] MEDS: GUAIFENESIN/D-METHORPHAN 600mg/30mg TABLET PO SCH ×2 (08:28→22:03)
[2018-04-24] MEDS: CEFTRIAXONE 1 G in NS 100 ML IV SCH (08:29)
--- NOTE | 2018-04-24 10:03 | Progress Note ---
- Date 04/24/18 Subjective: Zeenat is feeling better. She continues to have cough/congestion and occasionally her cough is productive. She reports that she is breathing better. She has been up for walks and plans to go on a couple walks today. She denies abdominal pain but notes a little nausea this morning. She states that her last BM was 2 days ago. Objective Vital signs: Temperature 96.5 F L 04/24/18 08:00 Pulse Rate 102 H 04/24/18 08:00 Respiratory Rate 16 04/24/18 09:31 Blood Pressure 163/88 H 04/24/18 08:00 Pulse Oximetry 93 04/24/18 08:00 Height/Weight/BMI: Height 1.57 m Weight 66.3 kg Body Mass Index 26.6 - Constitutional Present: no acute distress, well nourished, well developed - Routine HEENT Exam Head: Present: normocephalic Eye: Present: PERRL. Absent: conjunctival icterus, scleral injection ENT: Present: mucous membranes dry - Routine Respiratory Exam Present: decreased breath sounds, crackles (B/L bases) - Routine Cardiovascular Exam Present: RRR, S1, S2, tachycardia - Routine Abdominal Exam Present: soft, normoactive bowel sounds, non distended, non tender - Routine Extremities Exam Comments: Foam heel protector on left Right BKA - Routine Skin Exam Present: intact, dry, warm - Routine Neurological Exam Present: alert, oriented X3, CN II-XII intact, normal speech - Routine Psychiatric Exam Present: normal affect, normal thought process, cooperative Results - Labs CBC & Chem 7: 04/24/18 04:18 04/24/18 04:18 Microbiology Results: Microbiology 04/22/18 19:54 Sputum, Expectorated Gram Stain - Preliminary 04/17/18 19:47 Peripheral/Iv Start Blood Culture - Final No Growth After 5 Days 04/17/18 19:39 Port/Picc Blood Culture - Final No Growth After 5 Days 04/18/18 21:30 Sputum, Expectorated Gram Stain - Final 04/18/18 21:30 Sputum, Expectorated Sputum Culture - Final Normal Resp Hemalatha incl. Yeast Assessment and Plan (1) Myelodysplasia (myelodysplastic syndrome) Current visit: Yes Status: Acute (2) Acute kidney injury Current visit: Yes Status: Acute (3) Respiratory insufficiency Current visit: Yes Status: Acute Assessment and Plan: Assessment Respiratory insufficiency w/ hypoxia Suspicious for pneumonia Rhinovirus positive Suprapubic abdominal pain (onset 04/18) Absolute neutropenia JULIAN, creatinine 2.1, baseline ~1.3 Hypernatremia (POA) - resolved Hyperkalemia (not POA) Near syncope Dysphagia MDS - Dacogen and Neulasta q4 weeks per Dr. Santiago Pancytopenia, chronic CHF, diastolic CAD PVD, hx of right BKA Type II DM, peripheral neuropathy Stage III CKD Dyslipidemia Depression Chronic narcotic use Hypothyroid OP, OA SLE, Sjgren's Plan WBC decreased to 1.7; ANC 1377. Platelets 29. Granix given on 04/24/18. K increased to 5.5; not on KCl or jose. BUN 50, creatinine 1.3. Decrease Solu-Medrol to BID. Continue DuoNeb, acapella, Mucinex; ceftriaxone, day #6. Needing 1L of oxygen. CXR personally reviewed - stable. Blood sugars with intermittent elevations. Hope to see improvements with reduction in steroids. Increase Lantus to 9 U HS (home dose = 6 U). Resuscitation Status: Do Not Resuscitate - Physician Narrative Physician: Arsalan Grimm MD Narrative: Date: 04/24/18 Time: 1106 Have independently interviewed & examined pt. Chart reviewed. Case discussed with my DESIGN ENGINEER [employer]. Care plan developed with supervision; agree with above. Doing okay other than continue cough/congestion. Needing 1L with good saturations. Working well with therapy (tiring, but making gains). No f/c. Appetite about the same. Lungs: decreased, coarse CV: regular AB: soft nt BS decreased MSE: awake alert appropriate CXR: Stable-no infiltrate of edema Plan: WBC with decrease to 1.7 with ANC decreasing to 1377-will give dose of Granix today. Bladder retraining. Continue Solu-Medrol and pulmonary care. Wean O2 as able. Encourage continued work with therapy and activities. Hospital Course Summary Disclaimer: The visit summary below is not to be considered part of the above Progress Note. Hospital Course: 04/17/18 Admit, observation status. IVF: 1/2 NS at 100 mL/hr x1L. Repeat labs in am. Hold Torsemide. BP stable in ED. Check orthostatics BID. Trend troponin; pt with significant coronary hx. Monitor telemetry. Computer Network Support Specialist : Dr. Hudson. Consult speech therapy. Consult PT/OT. Monitor BG; carb consistent diet. Advanced directives: Spouse is DPOA. DNR. 04/18/18 Will change to inpatient admission status secondary to MDS with neutropenia and hypoxia/cough suspicious for pneumonia. Repeat CXR. Obtain sputum culture and respiratory panel. Start DuoNeb and acapella. Start levofloxacin for pulmonary coverage. ANC 0.6 Follow labs. Troponin were neg. Torsemide remains on hold. Creatinine with improvement from 2.1 at presentation to 1.7. Start 1/2NS at 50cc/hr as oral intake low. Speech recommends mechanical soft diet. Not eating much but drinking Ensure. Blood sugars running low - will hold Lantus. PT rec home with HH. 04/19/18 Pt tested + for rhinovirus. Continue DuoNeb and acapella. She is confused this am - could be r/t starting Levaquin. Will switch to Rocephin for coverage of lung pathogens given her immunocompromised state. Hgb dropped 8.3-->7.0. Transfuse 1U PRBC's. Given her abdominal pain and drop in hgb, check CT abd/pelvis and UA. Insert Pepe for accurate I&O. Creatinine improving 2.1-->1.7-->1.5. Will stop IVF. 04/20/18 WBC with increase to 1.2; ANC 432. Hemoglobin increased to 8.1 post transfusion yesterday. Platelets decreased at 23. Will repeat Granix 480mcg today-recheck counts tomorrow. Continue with ceftriaxone for pulmonary coverage. Continue DuoNeb and acapella. Wean O2 as able. Furosemide 20mg x1 - renal status improved: creatinine 1.4, potassium 4.8. Add routine Miralax as bowels slow - hold with loose stool. Sugars showing increase - will start Lantus at 4 units (home dose 9). Encourage PT/OT to help improve functional status. 04/21/18 WBC improving - 1.6 with ANC 896. Hemoglobin stable at 8.2. Platelets decreased at 22. Will repeat Granix 480mcg today - recheck counts tomorrow. Continue with ceftriaxone for pulmonary coverage. Continue DuoNeb and acapella. Wean O2 as able. Will give Bumex 0.5mg IV x1 - creatinine stable at 1.4. Add routine Miralax as bowels slow - hold with loose stool. Sugars still with elevation; will increase Lantus to 6 units (home dose 9). 04/22/18 WBC improving - 2.5 with ANC 1800. Hemoglobin stable at 8.4. Platelets decreased at 22. With continued cough will start Mucinex DM BID. Add nasal saline to moisturize nasal mucosa. Continue with ceftriaxone for pulmonary coverage. Continue DuoNeb and acapella. Wean O2 as able. Give Solu-Medrol 125mg x1 to help decrease wheezing. Will restart home torsemide at 5mg - monitoring volume status, BP, and renal status. Sugars improved; continue Lantus at 6 units (home dose 9). Oral drive decreased. 04/23/18 WBC stable - 2.3 with ANC 2380. Hemoglobin stable at 8.2. Platelets stable at 26. Continue with ceftriaxone for pulmonary coverage. Continue DuoNeb, acapella Mucinex. Wean O2 as able - 1L to maintain saturations. Start Solu-Medrol 62.5mg q6h to help decrease wheezing. Sugars increased after Solu-Medrol yesterday; will increase Lantus to 8 units ( home dose 9). Oral drive decreased. Encourage ambulation to help strength. 04/24/18 WBC decreased to 1.7; ANC 1377. Platelets 29. Granix given on 04/24/18. K increased to 5.5; not on KCl or jose. BUN 50, creatinine 1.3. Decrease Solu-Medrol to BID. Continue DuoNeb, acapella, Mucinex; ceftriaxone, day #6. Needing 1L of oxygen. Blood sugars with intermittent elevations. Hope to see improvements with reduction in steroids. Increase Lantus to 9 U HS (home dose = 6 U).
[2018-04-24] MEDS ORDERED: TBO-FILGRASTIM 480mcg/0.8ml INJECTION SQ ONE (10:08)
[2018-04-24] MEDS: HYDROMORPHONE 2 MG TABLET PO PRN (16:11)
[2018-04-24] MEDS: INSULIN REGULAR, HUMAN 100 UNIT/ML INJECTION SQ PRN (16:12)
[2018-04-24] MEDS ORDERED: INSULIN GLARGINE 100unit/ml INJECTION SQ SCH (21:00)
[2018-04-24] MEDS: MELATONIN 1 MG TABLET PO SCH (22:02)
[2018-04-24] MEDS: FENOFIBRATE 145 MG TABLET PO SCH (22:03)
[2018-04-24] MEDS: CYCLOBENZAPRINE 5 MG TABLET PO PRN (22:04)
[2018-04-24] MEDS: ASPIRIN *EC* 81 MG TABLET PO SCH (22:05)
[2018-04-24] MEDS: CLOPIDOGREL 75 MG TABLET PO SCH (22:06)
[2018-04-25] MEDS: ISOSORBIDE MONONITRATE ER 30 MG TABLET PO SCH (06:38)
[2018-04-25] MEDS: LEVOTHYROXINE 137 MCG TABLET PO SCH (06:38)
[2018-04-25] MEDS: ALBUTEROL/IPRATROPIUM 2.5mg-0.5mg/3ml NEB AEROSOL SCH ×4 (06:57→19:47)
[2018-04-25] MEDS: POLYETHYL GLYCOL 3350 17gm PACKET PO SCH (08:42)
[2018-04-25] MEDS: FERROUS SULFATE 324 MG TABLET PO SCH ×2 (08:43→18:15)
[2018-04-25] MEDS: TORSEMIDE 20 MG TABLET PO SCH (08:43)
[2018-04-25] MEDS: ACYCLOVIR 800 MG PO SCH ×2 (08:43→22:55)
[2018-04-25] MEDS: METHYLPREDNISOLONE SOD SUCC 125mg/2ml INJECTION IVP SCH ×2 (08:43→22:57)
[2018-04-25] MEDS: GUAIFENESIN/D-METHORPHAN 600mg/30mg TABLET PO SCH ×2 (08:45→22:55)
[2018-04-25] MEDS: DULOXETINE 30 MG CAPSULE PO SCH (08:45)
[2018-04-25] MEDS: MINOCYCLINE 100 MG CAPSULE PO SCH ×2 (08:45→22:56)
[2018-04-25] MEDS: SALINE 0.65% NASAL SPRAY 44 ML BOTTLE EA NOSTRIL SCH ×4 (08:58→22:59)
[2018-04-25] MEDS: EYE EACH EYE SCH ×2 (08:59→22:58)
[2018-04-25] MEDS: FLUOROMETHOLONE 0.1% EACH EYE SCH ×2 (08:59→22:58)
[2018-04-25] MEDS: CEFTRIAXONE 1 G in NS 100 ML IV SCH (09:35)
[2018-04-25] MEDS: REFRESH CELLUVISC 1% Eye Drops 0.4ml EACH EYE SCH ×4 (09:54→22:55)
--- NOTE | 2018-04-25 13:16 | Wound Care Progress Note ---
Wound Center Progress Note: Pt seen for wound care follow up. Pt sitting up in chair, eating lunch, watching TV. Pt is in droplet precautions. Assessed skin tear to L posterior calf. Wound bed: dried bloody crust, no drainage, partial flap partially adhered to wound bed, tender to palpation. Periwound: blanchable erythema. R medial buttock not visualized at this time. Dressing: Apply double layer petroleum gauze to wound bed, cover with Mepilex, change q 3 days.
--- NOTE | 2018-04-25 14:50 | Progress Note ---
- Date 04/25/18 Subjective: I saw Zeenat walk in the halls this morning with PT and she was doing well with her walker. However, when I checked on her after lunch she was more short of breath and coughing more frequently. She occasionally brings up sputum. She wasn 't feeling well at all. She hasn't been sleeping well at night though slept better last night. She has not had any abdominal pain or nausea. She c/o dry tongue but denies thrush. She notices when her Pepe is clamped - she can feel when her bladder is full. Objective Vital signs: Temperature 96.6 F L 04/25/18 08:00 Pulse Rate 109 H 04/25/18 08:00 Respiratory Rate 20 04/25/18 14:25 Blood Pressure 158/77 H 04/25/18 08:00 Pulse Oximetry 95 04/25/18 14:25 Height/Weight/BMI: Height 1.57 m Weight 67.6 kg Body Mass Index 26.6 - Constitutional Present: no acute distress, well nourished, well developed - Routine HEENT Exam Head: Present: normocephalic Eye: Present: PERRL. Absent: conjunctival icterus, scleral injection ENT: Present: mucous membranes moist, oropharynx clear - Routine Respiratory Exam Present: decreased breath sounds, wheezes Comments: coarse throughout - Routine Cardiovascular Exam Present: RRR, S1, S2 - Routine Abdominal Exam Present: soft, normoactive bowel sounds, non distended, non tender - Routine Exam Comments: Pepe to DD - Routine Extremities Exam Present: no edema Comments: Rt BKA - Routine Musculoskeletal Exam Musculoskeletal: Present: moving extremities well - Routine Skin Exam Present: dry, warm, ecchymosis (B/L arms) - Routine Neurological Exam Present: alert, oriented X3, normal speech - Routine Psychiatric Exam Present: normal affect, normal thought process, cooperative Results - Labs CBC & Chem 7: 04/25/18 03:46 04/25/18 03:46 Microbiology Results: Microbiology 04/22/18 19:54 Sputum, Expectorated Gram Stain - Final 04/22/18 19:54 Sputum, Expectorated Sputum Culture - Final Agatha albicans Normal Yaneth 04/17/18 19:47 Peripheral/Iv Start Blood Culture - Final No Growth After 5 Days 04/17/18 19:39 Port/Picc Blood Culture - Final No Growth After 5 Days 04/18/18 21:30 Sputum, Expectorated Gram Stain - Final 04/18/18 21:30 Sputum, Expectorated Sputum Culture - Final Normal Resp Yaneth incl. Yeast Assessment and Plan Assessment and Plan: Assessment Respiratory insufficiency w/ hypoxia Suspicious for pneumonia Rhinovirus positive Suprapubic abdominal pain (onset 04/18) Absolute neutropenia JULIAN, creatinine 2.1, baseline ~1.3 Hypernatremia (POA) - resolved Hyperkalemia (not POA) Near syncope Dysphagia MDS - Dacogen and Neulasta q4 weeks per Dr. Santiago Pancytopenia, chronic CHF, diastolic CAD PVD, hx of right BKA Type II DM, peripheral neuropathy Stage III CKD Dyslipidemia Depression Chronic narcotic use Hypothyroid OP, OA SLE, Sjgren's Plan Counts improved since receiving Granix on 04/24/18: WBC 5.2, hgb 8.8, plt 43 Rocephin day #7 -- consider discontinuing. Continue Solu-Medrol 62.5 mg IV BID. Renal function slightly worse, BUN 51, creatinine 1.4. K improved to 4.8. PRADIP Pepe. Hypoglycemia this am -- will decrease Lantus HS to 4U. 04/25/2018-4:50 PM-I examined the patient independently. I reviewed this chart, the patient history, and the HOME DEMONSTRATION AGENT's/PA's documented findings as above. We discussed and formulated the assessment and plan as above with the additions below.-Dr. Roman The patient was seen this afternoon in her room. She continues to have a cough with productive phlegm. Lungs sound coarse. She states she had a cough for about 2 weeks prior to admission. Viral respiratory panel was positive for rhinovirus. Sputum culture showed yeast and normal yaneth. Chest x-ray shows basilar atelectasis. She has been on DuoNeb, Rocephin, and steroids for approximately one week. She states she is chronically on 2 L of oxygen at night and as needed during the day. She stated that for the 2 weeks prior to admission , she was needing it frequently during the day. Currently, she is on 1.5 L of oxygen. She has also been noted to be tachycardic since her second hospital day. On review of her home medications, she was on metoprolol 25 mg by mouth twice a day, but that was not placed in her home med rec. Will start metoprolol tartrate 12.5 mg by mouth twice a day now and consider increasing to her usual 25 mg by mouth twice a day tomorrow depending upon blood pressure and heart rate. Lisinopril remains on hold because of acute kidney injury. Her creatinine has improved and is near baseline. Her BUN has been rising for the past few days after torsemide was restarted. We'll hold torsemide for now. Weight is up 3.5 kg since admission, but she was dehydrated on admission. We'll check a chest x-ray tomorrow and decide if we need to resume torsemide. She complains that at times the tips of her fingers are turning almost black and then sometimes turn white. On examination, the tips of her fingers are currently purplish but she states they are reinforcing bar setter in color than they were earlier. They're quite cool to touch. Radial pulses are equal and somewhat faint bilaterally. She does have severe peripheral vascular disease. She has Sjogren's disease and may have a component of Raynaud's. I did recommend she try to keep her hands warm and see if that helps. She states that this has been happening off and on for the past week or so. On exam the patient is alert and in no acute distress. She has a frequent productive cough. Cardiovascular reveals a borderline tachycardic rate with irregular rhythm. No murmurs heard. Chest reveals coarse breath sounds bilaterally. Abdomen is soft and nontender. Extremities reveal a right BKA. She has wounds that are covered on her third through fourth toes on the left as well as a bandage covering the wound on her lower leg. Her great toe is normal in color. BUN is 51 which has increased the past couple of days up from a low at 44. Creatinine is 1.4. White count is 5.2, hemoglobin 8.8, platelets 43 up from 9 yesterday. Impression and plan Acute on chronic hypoxic respiratory failure secondary to rhinovirus and possible reactive airways disease versus COPD exacerbation. She does have tobacco exposure in the past but has not smoked for 38 years. Will continue breathing treatments, Solu-Medrol, and Rocephin. Repeat chest x-ray tomorrow. Regarding increasing BUN-hold torsemide and recheck tomorrow. Will look for fluid overload on chest x-ray tomorrow. Regarding tachycardia, I think this is likely secondary to rebound tachycardia from being off of beta marcell as well as the use of DuoNeb breathing treatments. Will start metoprolol tartrate 12.5 mg by mouth twice a day this evening and can reevaluate tomorrow to decide if we need to increase to 25 mg by mouth twice a day Regarding hypoglycemia this morning, Lantus was decreased from 8 units at bedtime to 4 units at bedtime. Will give NovoLog 2 units only if blood sugars greater than 300. Encourage use of incentive spirometer regarding atelectasis seen on chest x-ray. Regarding myelodysplastic syndrome-white count is up to 5.2 today after receiving Granix yesterday. Hemoglobin is stable at 8.8. Platelets are improving and are 43 today from 29 yesterday. We'll discuss with Dr. Santiago Regarding coronary artery disease with recent stent placed in January 2018- discussed with cardiology, continue Plavix and aspirin for now, despite thrombocytopenia. Could stop aspirin if needed. The patient wants to be off of mechanical soft diet, will ask speech therapy to reevaluate tomorrow. The pt is not on heparin or lovenox for dvt prophylaxis due to thrombocytopenia. She is not wearing SCD's due to risk of worsening skin breakdown with chronic leg wounds. Resuscitation Status: Do Not Resuscitate - Physician Narrative Narrative: Date: 04/24/18 Time: 0951 Hospital Course Summary Disclaimer: The visit summary below is not to be considered part of the above Progress Note. Hospital Course: 04/17/18 Admit, observation status. IVF: 1/2 NS at 100 mL/hr x1L. Repeat labs in am. Hold Torsemide. BP stable in ED. Check orthostatics BID. Trend troponin; pt with significant coronary hx. Monitor telemetry. Karate Black Belt : Dr. Hudson. Consult speech therapy. Consult PT/OT. Monitor BG; carb consistent diet. Advanced directives: Spouse is DPOA. DNR. 04/18/18 Will change to inpatient admission status secondary to MDS with neutropenia and hypoxia/cough suspicious for pneumonia. Repeat CXR. Obtain sputum culture and respiratory panel. Start DuoNeb and acapella. Start levofloxacin for pulmonary coverage. ANC 0.6 Follow labs. Troponin were neg. Torsemide remains on hold. Creatinine with improvement from 2.1 at presentation to 1.7. Start 1/2NS at 50cc/hr as oral intake low. Speech recommends mechanical soft diet. Not eating much but drinking Ensure. Blood sugars running low - will hold Lantus. PT rec home with HH. 04/19/18 Pt tested + for rhinovirus. Continue DuoNeb and acapella. She is confused this am - could be r/t starting Levaquin. Will switch to Rocephin for coverage of lung pathogens given her immunocompromised state. Hgb dropped 8.3-->7.0. Transfuse 1U PRBC's. Given her abdominal pain and drop in hgb, check CT abd/pelvis and UA. Insert Pepe for accurate I&O. Creatinine improving 2.1-->1.7-->1.5. Will stop IVF. 04/20/18 WBC with increase to 1.2; ANC 432. Hemoglobin increased to 8.1 post transfusion yesterday. Platelets decreased at 23. Will repeat Granix 480mcg today-recheck counts tomorrow. Continue with ceftriaxone for pulmonary coverage. Continue DuoNeb and acapella. Wean O2 as able. Furosemide 20mg x1 - renal status improved: creatinine 1.4, potassium 4.8. Add routine Miralax as bowels slow - hold with loose stool. Sugars showing increase - will start Lantus at 4 units (home dose 9). Encourage PT/OT to help improve functional status. 04/21/18 WBC improving - 1.6 with ANC 896. Hemoglobin stable at 8.2. Platelets decreased at 22. Will repeat Granix 480mcg today - recheck counts tomorrow. Continue with ceftriaxone for pulmonary coverage. Continue DuoNeb and acapella. Wean O2 as able. Will give Bumex 0.5mg IV x1 - creatinine stable at 1.4. Add routine Miralax as bowels slow - hold with loose stool. Sugars still with elevation; will increase Lantus to 6 units (home dose 9). 04/22/18 WBC improving - 2.5 with ANC 1800. Hemoglobin stable at 8.4. Platelets decreased at 22. With continued cough will start Mucinex DM BID. Add nasal saline to moisturize nasal mucosa. Continue with ceftriaxone for pulmonary coverage. Continue DuoNeb and acapella. Wean O2 as able. Give Solu-Medrol 125mg x1 to help decrease wheezing. Will restart home torsemide at 5mg - monitoring volume status, BP, and renal status. Sugars improved; continue Lantus at 6 units (home dose 9). Oral drive decreased. 04/23/18 WBC stable - 2.3 with ANC 2380. Hemoglobin stable at 8.2. Platelets stable at 26. Continue with ceftriaxone for pulmonary coverage. Continue DuoNeb, acapella Mucinex. Wean O2 as able - 1L to maintain saturations. Start Solu-Medrol 62.5mg q6h to help decrease wheezing. Sugars increased after Solu-Medrol yesterday; will increase Lantus to 8 units ( home dose 9). Oral drive decreased. Encourage ambulation to help strength. 04/24/18 WBC decreased to 1.7; ANC 1377. Platelets 29. Granix given on 04/24/18. K increased to 5.5; not on KCl or jose. BUN 50, creatinine 1.3. Decrease Solu-Medrol to BID. Continue DuoNeb, acapella, Mucinex; ceftriaxone, day #6. Needing 1L of oxygen. Blood sugars with intermittent elevations. Hope to see improvements with reduction in steroids. Increase Lantus to 9 U HS (home dose = 6 U). 04/25/18 Counts improved since receiving Granix on 04/24/18: WBC 5.2, hgb 8.8, plt 43 Rocephin day #7 -- consider discontinuing. Continue Solu-Medrol 62.5 mg IV BID. Renal function slightly worse, BUN 51, creatinine 1.4. K improved to 4.8. PRADIP Pepe. Hypoglycemia this am -- will decrease Lantus HS to 4U.
[2018-04-25] MEDS: FENOFIBRATE 145 MG TABLET PO SCH (22:55)
[2018-04-25] MEDS: CLOPIDOGREL 75 MG TABLET PO SCH (22:56)
[2018-04-25] MEDS: MELATONIN 1 MG TABLET PO SCH (22:56)
[2018-04-25] MEDS: ASPIRIN *EC* 81 MG TABLET PO SCH (22:57)
[2018-04-25] MEDS: INSULIN GLARGINE 100unit/ml INJECTION SQ SCH (22:59)
[2018-04-25] MEDS: CYCLOBENZAPRINE 5 MG TABLET PO PRN (23:01)
[2018-04-26] MEDS: ISOSORBIDE MONONITRATE ER 30 MG TABLET PO SCH (06:05)
[2018-04-26] MEDS: LEVOTHYROXINE 137 MCG TABLET PO SCH (06:05)
[2018-04-26] MEDS: ALBUTEROL/IPRATROPIUM 2.5mg-0.5mg/3ml NEB AEROSOL SCH ×4 (07:19→20:08)
--- NOTE | 2018-04-26 08:55 | XRay Report ---
INDICATION: cough and hypoxia PROCEDURE: CHEST 2-VIEWS UPRIGHT (PA & LAT) Encounter: Initial COMPARISON: April 24, 2018 FINDINGS: Lungs are stable in appearance with hypoinflation and elevation of left hemidiaphragm. Linear scarring or atelectasis in the left lower lobe. No new airspace disease. No lobar consolidation, gross pleural effusion or pneumothorax. Cardiomediastinal contours are stable. Pulmonary vascularity is normal. Impression: Stable chest without focal pneumonia or congestive failure. .
[2018-04-26] MEDS: METHYLPREDNISOLONE SOD SUCC 125mg/2ml INJECTION IVP SCH ×2 (09:43→21:38)
[2018-04-26] MEDS: GUAIFENESIN/D-METHORPHAN 600mg/30mg TABLET PO SCH ×2 (09:44→21:44)
[2018-04-26] MEDS: ACYCLOVIR 800 MG PO SCH ×2 (09:44→21:43)
[2018-04-26] MEDS: DULOXETINE 30 MG CAPSULE PO SCH (09:44)
[2018-04-26] MEDS: FERROUS SULFATE 324 MG TABLET PO SCH ×2 (09:44→18:04)
[2018-04-26] MEDS: CYCLOBENZAPRINE 5 MG TABLET PO PRN (09:44)
[2018-04-26] MEDS: MINOCYCLINE 100 MG CAPSULE PO SCH ×2 (09:44→21:43)
[2018-04-26] MEDS: SALINE FLUSH 10ml SYRINGE IV PRN (09:46)
[2018-04-26] MEDS: REFRESH CELLUVISC 1% Eye Drops 0.4ml EACH EYE SCH ×4 (09:46→22:33)
[2018-04-26] MEDS: EYE EACH EYE SCH ×2 (09:46→21:39)
[2018-04-26] MEDS: FLUOROMETHOLONE 0.1% EACH EYE SCH ×2 (09:46→21:39)
[2018-04-26] MEDS: POLYETHYL GLYCOL 3350 17gm PACKET PO SCH (09:47)
[2018-04-26] MEDS: SALINE 0.65% NASAL SPRAY 44 ML BOTTLE EA NOSTRIL SCH ×4 (09:47→21:39)
[2018-04-26] MEDS: CEFTRIAXONE 1 G in NS 100 ML IV SCH (10:05)
--- NOTE | 2018-04-26 15:32 | Progress Note ---
- Date 04/26/18 Subjective: The patient was seen this afternoon in her room. She was accompanied by her aunt. Patient states that she is breathing better today and cough is improving. She is currently on room air with O2 sat of 90-93%. She states she is eating okay, but not eating a lot. She continues to have some intermittent bluish discoloration of her fingertips bilaterally. Her hands are cold which is chronic. She likes her room very cold. She states at times her fingertips feel numb but then the feeling comes back. She denies any pain. Objective Vital signs: Temperature 97.3 F 04/26/18 08:31 Pulse Rate 82 04/26/18 08:31 Respiratory Rate 18 04/26/18 13:14 Blood Pressure 137/71 04/26/18 08:31 Pulse Oximetry 99 04/26/18 10:48 Height/Weight/BMI: Height 1.57 m Weight 65.7 kg Body Mass Index 26.6 Comments: Afebrile, heart rate 82, blood pressure 137/71, O2 sat this morning was 99% on 1 L and is currently 90-93% on room air GEN-alert, oriented, no acute distress HEENT-sclera anicteric, oropharynx is moist NECK-supple CV-regular rate and rhythm, sinus rhythm on telemetry. Sinus tachycardia has resolved after restarting half dose metoprolol CHEST-coarse breath sounds with occasional wheezes bilaterally ABD-soft, nontender with positive bowel sounds -no Pepe EXT-right BKA, left leg without edema. She has mild cyanosis of the fingertips on both hands. Capillary refill is 2-3 seconds. Radial pulses are present bilaterally NEURO-no focal deficits SKIN-hands are cool to touch which the patient states is chronic, no rashes, she has bruising on her abdomen Results - Labs CBC & Chem 7: 04/26/18 05:03 04/26/18 05:03 Microbiology Results: Microbiology 04/22/18 19:54 Sputum, Expectorated Gram Stain - Final 04/22/18 19:54 Sputum, Expectorated Sputum Culture - Final Agatha albicans Normal Hemalatha 04/17/18 19:47 Peripheral/Iv Start Blood Culture - Final No Growth After 5 Days 04/17/18 19:39 Port/Picc Blood Culture - Final No Growth After 5 Days 04/18/18 21:30 Sputum, Expectorated Gram Stain - Final 04/18/18 21:30 Sputum, Expectorated Sputum Culture - Final Normal Resp Hemalatha incl. Yeast - Impressions Chest x-ray 04/26/2018 FINDINGS: Lungs are stable in appearance with hypoinflation and elevation of left hemidiaphragm. Linear scarring or atelectasis in the left lower lobe. No new airspace disease. No lobar consolidation, gross pleural effusion or pneumothorax. Cardiomediastinal contours are stable. Pulmonary vascularity is normal. Impression: Stable chest without focal pneumonia or congestive failure. Assessment and Plan (1) Myelodysplasia (myelodysplastic syndrome) Current visit: Yes Status: Acute (2) Acute kidney injury Current visit: Yes Status: Acute (3) Respiratory insufficiency Current visit: Yes Status: Acute Assessment and Plan: Assessment Respiratory insufficiency w/ hypoxia Suspicious for pneumonia Rhinovirus positive Suprapubic abdominal pain (onset 04/18) Absolute neutropenia JULIAN, creatinine 2.1, baseline ~1.3-resolved Hypernatremia (POA) - resolved Hyperkalemia (not POA) Near syncope Dysphagia MDS - Dacogen and Neulasta q4 weeks per Dr. Santiago Pancytopenia, chronic CHF, diastolic CAD PVD, hx of right BKA Type II DM, peripheral neuropathy Stage III CKD Dyslipidemia Depression Chronic narcotic use Hypothyroid OP, OA SLE, Sjgren's Intermittent cyanosis of the fingertips Plan Counts continue to improve. She received a dose of Granix 04/24/2018. Discussed myelodysplastic syndrome yesterday with Dr. Santiago White count is 8.1 up from 5.2. Hemoglobin 9.3 up from 8.8. Platelets 63 up from 43. Continue Rocephin and breathing treatments for acute hypoxic respiratory failure /rhinovirus/possible reactive airways [id number] shows stable chest without focal pneumonia or congestive failure. I have viewed the films Start oral prednisone tomorrow Continue to monitor off of torsemide Hyperglycemia is better with decrease in Lantus. Will monitor blood sugars with change to oral prednisone Tachycardia has resolved with restarting half dose of metoprolol. Blood pressure is normal. We'll restart her usual dose of metoprolol this evening. Possible discharge soon if she continues to do well Resuscitation Status: Do Not Resuscitate - Physician Narrative Narrative: Date: 04/24/18 Time: 0951 Hospital Course Summary Disclaimer: The visit summary below is not to be considered part of the above Progress Note. Hospital Course: 04/17/18 Admit, observation status. IVF: 1/2 NS at 100 mL/hr x1L. Repeat labs in am. Hold Torsemide. BP stable in ED. Check orthostatics BID. Trend troponin; pt with significant coronary hx. Monitor telemetry. Client Care Manager : Dr. Hudson. Consult speech therapy. Consult PT/OT. Monitor BG; carb consistent diet. Advanced directives: Spouse is DPOA. DNR. 04/18/18 Will change to inpatient admission status secondary to MDS with neutropenia and hypoxia/cough suspicious for pneumonia. Repeat CXR. Obtain sputum culture and respiratory panel. Start DuoNeb and acapella. Start levofloxacin for pulmonary coverage. ANC 0.6 Follow labs. Troponin were neg. Torsemide remains on hold. Creatinine with improvement from 2.1 at presentation to 1.7. Start 1/2NS at 50cc/hr as oral intake low. Speech recommends mechanical soft diet. Not eating much but drinking Ensure. Blood sugars running low - will hold Lantus. PT rec home with HH. 04/19/18 Pt tested + for rhinovirus. Continue DuoNeb and acapella. She is confused this am - could be r/t starting Levaquin. Will switch to Rocephin for coverage of lung pathogens given her immunocompromised state. Hgb dropped 8.3-->7.0. Transfuse 1U PRBC's. Given her abdominal pain and drop in hgb, check CT abd/pelvis and UA. Insert Pepe for accurate I&O. Creatinine improving 2.1-->1.7-->1.5. Will stop IVF. 04/20/18 WBC with increase to 1.2; ANC 432. Hemoglobin increased to 8.1 post transfusion yesterday. Platelets decreased at 23. Will repeat Granix 480mcg today-recheck counts tomorrow. Continue with ceftriaxone for pulmonary coverage. Continue DuoNeb and acapella. Wean O2 as able. Furosemide 20mg x1 - renal status improved: creatinine 1.4, potassium 4.8. Add routine Miralax as bowels slow - hold with loose stool. Sugars showing increase - will start Lantus at 4 units (home dose 9). Encourage PT/OT to help improve functional status. 04/21/18 WBC improving - 1.6 with ANC 896. Hemoglobin stable at 8.2. Platelets decreased at 22. Will repeat Granix 480mcg today - recheck counts tomorrow. Continue with ceftriaxone for pulmonary coverage. Continue DuoNeb and acapella. Wean O2 as able. Will give Bumex 0.5mg IV x1 - creatinine stable at 1.4. Add routine Miralax as bowels slow - hold with loose stool. Sugars still with elevation; will increase Lantus to 6 units (home dose 9). 04/22/18 WBC improving - 2.5 with ANC 1800. Hemoglobin stable at 8.4. Platelets decreased at 22. With continued cough will start Mucinex DM BID. Add nasal saline to moisturize nasal mucosa. Continue with ceftriaxone for pulmonary coverage. Continue DuoNeb and acapella. Wean O2 as able. Give Solu-Medrol 125mg x1 to help decrease wheezing. Will restart home torsemide at 5mg - monitoring volume status, BP, and renal status. Sugars improved; continue Lantus at 6 units (home dose 9). Oral drive decreased. 04/23/18 WBC stable - 2.3 with ANC 2380. Hemoglobin stable at 8.2. Platelets stable at 26. Continue with ceftriaxone for pulmonary coverage. Continue DuoNeb, acapella Mucinex. Wean O2 as able - 1L to maintain saturations. Start Solu-Medrol 62.5mg q6h to help decrease wheezing. Sugars increased after Solu-Medrol yesterday; will increase Lantus to 8 units ( home dose 9). Oral drive decreased. Encourage ambulation to help strength. 04/24/18 WBC decreased to 1.7; ANC 1377. Platelets 29. Granix given on 04/24/18. K increased to 5.5; not on KCl or jose. BUN 50, creatinine 1.3. Decrease Solu-Medrol to BID. Continue DuoNeb, acapella, Mucinex; ceftriaxone, day #6. Needing 1L of oxygen. Blood sugars with intermittent elevations. Hope to see improvements with reduction in steroids. Increase Lantus to 9 U HS (home dose = 6 U). 04/25/18 Counts improved since receiving Granix on 04/24/18: WBC 5.2, hgb 8.8, plt 43 Rocephin day #7 -- consider discontinuing. Continue Solu-Medrol 62.5 mg IV BID. Renal function slightly worse, BUN 51, creatinine 1.4. K improved to 4.8. PRADIP Pepe. Hypoglycemia this am -- will decrease Lantus HS to 4U.
[2018-04-26] MEDS: INSULIN REGULAR, HUMAN 100 UNIT/ML INJECTION SQ PRN (21:37)
[2018-04-26] MEDS: ASPIRIN *EC* 81 MG TABLET PO SCH (21:41)
[2018-04-26] MEDS: CLOPIDOGREL 75 MG TABLET PO SCH (21:41)
[2018-04-26] MEDS: MELATONIN 1 MG TABLET PO SCH (21:42)
[2018-04-26] MEDS: FENOFIBRATE 145 MG TABLET PO SCH (21:44)
[2018-04-26] MEDS: INSULIN GLARGINE 100unit/ml INJECTION SQ SCH (22:34)
[2018-04-27] MEDS: LEVOTHYROXINE 137 MCG TABLET PO SCH (05:55)
[2018-04-27] MEDS: ISOSORBIDE MONONITRATE ER 30 MG TABLET PO SCH (06:00)
[2018-04-27] MEDS: ALBUTEROL/IPRATROPIUM 2.5mg-0.5mg/3ml NEB AEROSOL SCH ×4 (07:16→19:53)
[2018-04-27] MEDS ORDERED: PredniSONE 10 MG TABLET PO SCH (08:00)
[2018-04-27] MEDS: SALINE 0.65% NASAL SPRAY 44 ML BOTTLE EA NOSTRIL SCH ×4 (10:14→20:42)
[2018-04-27] MEDS: REFRESH CELLUVISC 1% Eye Drops 0.4ml EACH EYE SCH ×4 (10:15→20:43)
[2018-04-27] MEDS: ACYCLOVIR 800 MG PO SCH ×2 (10:15→20:46)
[2018-04-27] MEDS: GUAIFENESIN/D-METHORPHAN 600mg/30mg TABLET PO SCH ×2 (10:15→20:46)
[2018-04-27] MEDS: DULOXETINE 30 MG CAPSULE PO SCH (10:15)
[2018-04-27] MEDS: FERROUS SULFATE 324 MG TABLET PO SCH ×2 (10:16→17:06)
[2018-04-27] MEDS: MINOCYCLINE 100 MG CAPSULE PO SCH ×2 (10:16→20:46)
[2018-04-27] MEDS: POLYETHYL GLYCOL 3350 17gm PACKET PO SCH (10:17)
[2018-04-27] MEDS: FLUOROMETHOLONE 0.1% EACH EYE SCH ×2 (10:17→20:42)
[2018-04-27] MEDS: EYE EACH EYE SCH ×2 (10:17→20:42)
[2018-04-27] MEDS: CEFTRIAXONE 1 G in NS 100 ML IV SCH (10:27)
--- NOTE | 2018-04-27 12:59 | Progress Note ---
- Date 04/27/18 Subjective: Patient is seen eating lunch. She reports she is feeling better. She is coughing more, but states the cough is more productive. No CP, n/v/f/c. She feels like she might be ready to go home in the next few days. She is reassured her labs are stable/improving. Objective Vital signs: Temperature 97.5 F 04/26/18 23:52 Pulse Rate 86 04/27/18 08:17 Respiratory Rate 18 04/27/18 10:31 Blood Pressure 171/95 H 04/27/18 08:17 Pulse Oximetry 97 04/27/18 10:31 Height/Weight/BMI: Height 1.57 m Weight 66.7 kg Body Mass Index 26.6 - Constitutional Present: no acute distress, well nourished, well developed - Routine HEENT Exam Head: Present: normocephalic, atraumatic - Routine Respiratory Exam Present: CTA bilaterally (initially sounds were coarse, but after a productive cough, sounds were mostly clear.). Absent: wheezes - Routine Cardiovascular Exam Present: RRR, no murmur - Routine Abdominal Exam Present: soft, non distended, non tender - Routine Extremities Exam Present: no edema, normal capillary refill Comments: R BKA - Routine Skin Exam Present: dry, warm - Routine Neurological Exam Present: alert, oriented X3 - Routine Lymphatic Exam Lymphatic: Absent: adenopathy - Routine Psychiatric Exam Present: normal affect, cooperative Results - Labs CBC & Chem 7: 04/27/18 04:14 04/27/18 04:14 Microbiology Results: Microbiology 04/22/18 19:54 Sputum, Expectorated Gram Stain - Final 04/22/18 19:54 Sputum, Expectorated Sputum Culture - Final Agatha albicans Normal Hemalatha 04/17/18 19:47 Peripheral/Iv Start Blood Culture - Final No Growth After 5 Days 04/17/18 19:39 Port/Picc Blood Culture - Final No Growth After 5 Days 04/18/18 21:30 Sputum, Expectorated Gram Stain - Final 04/18/18 21:30 Sputum, Expectorated Sputum Culture - Final Normal Resp Hemalatha incl. Yeast Assessment and Plan (1) Myelodysplasia (myelodysplastic syndrome) Current visit: Yes Status: Acute (2) Acute kidney injury Current visit: Yes Status: Acute (3) Respiratory insufficiency Current visit: Yes Status: Acute Assessment and Plan: Assessment Respiratory insufficiency w/ hypoxia Suspicious for pneumonia Rhinovirus positive Suprapubic abdominal pain (onset 04/18) Absolute neutropenia JULIAN, creatinine 2.1, baseline ~1.3-resolved Hypernatremia (POA) - resolved Hyperkalemia (not POA) Near syncope Dysphagia MDS - Dacogen and Neulasta q4 weeks per Dr. Santiago Pancytopenia, chronic CHF, diastolic CAD PVD, hx of right BKA Type II DM, peripheral neuropathy Stage III CKD Dyslipidemia Depression Chronic narcotic use Hypothyroid OP, OA SLE, Sjgren's Intermittent cyanosis of the fingertips Plan White count, hgb, platelets and renal function are stable.. Day 9 Rocephin. Continue nebulizer txs, etc. Converted from Solumedrol 62.5mg IV BID to Prednisone 30mg po daily today. Doing well off Torsemide and with restart of home metoprolol. BS's look good today. Watch blood sugars closely with change to oral prednisone Possible discharge soon if she continues to do well. Labs in am. 04/27/2018-3:20pm-I examined the patient independently. I reviewed this chart, the patient history, and the PERSONAL LINES UNDERWRITER's/PA's documented findings as above. We discussed and formulated the assessment and plan as above with the additions below.-Dr. Roman The patient was seen this afternoon in her room. He states she's feeling okay. She complains of dry mouth. She states she's lightheaded sometimes, but not today. Her breathing is better and she is off of oxygen. She continues to have a cough. She states her hands feel better today. On exam she is alert and oriented and in no acute distress. Chest reveals some coarse breath sounds bilaterally. Cardiovascular reveals a regular rate and rhythm. Abdomen is soft and nontender. Extremities are free of edema. She has some mild purplish discoloration to the fingertips. The intermittent numbness and pain she was having is improved today. Radial pulses are present but faint, and unchanged. Impression and plan The patient is slowly feeling better. She continues have a productive cough. She is currently on day 9 of Rocephin. No pneumonia seen on chest x-ray. She did have acute hypoxic respiratory failure secondary to rhinovirus. We'll discontinue Rocephin. Decrease oral steroids. She continues to have elevated BUN, will give 500 cc normal saline bolus today. Regarding dry mouth, encourage by mouth fluids and use saliva substitute. Continue to hold torsemide. Heart rate and blood pressure are well controlled on her usual dose of metoprolol. Myelodysplastic syndrome -Pancytopenia has improved. Possible dismissal to home soon. The patient states she is anxious about discharge and is worried she will get sick again. Resuscitation Status: Do Not Resuscitate - Physician Narrative Narrative: Date: 04/27/18 Time: 1256 Hospital Course Summary Disclaimer: The visit summary below is not to be considered part of the above Progress Note. Hospital Course: 04/17/18 Admit, observation status. IVF: 1/2 NS at 100 mL/hr x1L. Repeat labs in am. Hold Torsemide. BP stable in ED. Check orthostatics BID. Trend troponin; pt with significant coronary hx. Monitor telemetry. Vacuum Drier Tender : Dr. Hudson. Consult speech therapy. Consult PT/OT. Monitor BG; carb consistent diet. Advanced directives: Spouse is DPOA. DNR. 04/18/18 Will change to inpatient admission status secondary to MDS with neutropenia and hypoxia/cough suspicious for pneumonia. Repeat CXR. Obtain sputum culture and respiratory panel. Start DuoNeb and acapella. Start levofloxacin for pulmonary coverage. ANC 0.6 Follow labs. Troponin were neg. Torsemide remains on hold. Creatinine with improvement from 2.1 at presentation to 1.7. Start 1/2NS at 50cc/hr as oral intake low. Speech recommends mechanical soft diet. Not eating much but drinking Ensure. Blood sugars running low - will hold Lantus. PT rec home with HH. 04/19/18 Pt tested + for rhinovirus. Continue DuoNeb and acapella. She is confused this am - could be r/t starting Levaquin. Will switch to Rocephin for coverage of lung pathogens given her immunocompromised state. Hgb dropped 8.3-->7.0. Transfuse 1U PRBC's. Given her abdominal pain and drop in hgb, check CT abd/pelvis and UA. Insert Pepe for accurate I&O. Creatinine improving 2.1-->1.7-->1.5. Will stop IVF. 04/20/18 WBC with increase to 1.2; ANC 432. Hemoglobin increased to 8.1 post transfusion yesterday. Platelets decreased at 23. Will repeat Granix 480mcg today-recheck counts tomorrow. Continue with ceftriaxone for pulmonary coverage. Continue DuoNeb and acapella. Wean O2 as able. Furosemide 20mg x1 - renal status improved: creatinine 1.4, potassium 4.8. Add routine Miralax as bowels slow - hold with loose stool. Sugars showing increase - will start Lantus at 4 units (home dose 9). Encourage PT/OT to help improve functional status. 04/21/18 WBC improving - 1.6 with ANC 896. Hemoglobin stable at 8.2. Platelets decreased at 22. Will repeat Granix 480mcg today - recheck counts tomorrow. Continue with ceftriaxone for pulmonary coverage. Continue DuoNeb and acapella. Wean O2 as able. Will give Bumex 0.5mg IV x1 - creatinine stable at 1.4. Add routine Miralax as bowels slow - hold with loose stool. Sugars still with elevation; will increase Lantus to 6 units (home dose 9). 04/22/18 WBC improving - 2.5 with ANC 1800. Hemoglobin stable at 8.4. Platelets decreased at 22. With continued cough will start Mucinex DM BID. Add nasal saline to moisturize nasal mucosa. Continue with ceftriaxone for pulmonary coverage. Continue DuoNeb and acapella. Wean O2 as able. Give Solu-Medrol 125mg x1 to help decrease wheezing. Will restart home torsemide at 5mg - monitoring volume status, BP, and renal status. Sugars improved; continue Lantus at 6 units (home dose 9). Oral drive decreased. 04/23/18 WBC stable - 2.3 with ANC 2380. Hemoglobin stable at 8.2. Platelets stable at 26. Continue with ceftriaxone for pulmonary coverage. Continue DuoNeb, acapella Mucinex. Wean O2 as able - 1L to maintain saturations. Start Solu-Medrol 62.5mg q6h to help decrease wheezing. Sugars increased after Solu-Medrol yesterday; will increase Lantus to 8 units ( home dose 9). Oral drive decreased. Encourage ambulation to help strength. 04/24/18 WBC decreased to 1.7; ANC 1377. Platelets 29. Granix given on 04/24/18. K increased to 5.5; not on KCl or jose. BUN 50, creatinine 1.3. Decrease Solu-Medrol to BID. Continue DuoNeb, acapella, Mucinex; ceftriaxone, day #6. Needing 1L of oxygen. Blood sugars with intermittent elevations. Hope to see improvements with reduction in steroids. Increase Lantus to 9 U HS (home dose = 6 U). 04/25/18 Counts improved since receiving Granix on 04/24/18: WBC 5.2, hgb 8.8, plt 43 Rocephin day #7 -- consider discontinuing. Continue Solu-Medrol 62.5 mg IV BID. Renal function slightly worse, BUN 51, creatinine 1.4. K improved to 4.8. PRADIP Pepe. Hypoglycemia this am -- will decrease Lantus HS to 4U. 04/26/18 Counts continue to improve. She received a dose of Granix 04/24/2018. Discussed myelodysplastic syndrome yesterday with Dr. Santiago White count is 8.1 up from 5.2. Hemoglobin 9.3 up from 8.8. Platelets 63 up from 43. Continue Rocephin and breathing treatments Start oral prednisone tomorrow Continue to monitor off of torsemide Hyperglycemia is better with decrease in Lantus. Will monitor blood sugars with change to oral prednisone Tachycardia has resolved with restarting half dose of metoprolol. Blood pressure is normal. We'll restart her usual dose of metoprolol this evening. 04/27/18 White count, hgb, platelets and renal function are stable.. Day 9 Rocephin. Continue nebulizer txs, etc. Converted from Solumedrol 62.5mg IV BID to Prednisone 30mg po daily today. Doing well off Torsemide and with restart of home metoprolol. BS's look good today. Watch blood sugars closely with change to oral prednisone Possible discharge soon if she continues to do well. Labs in am.
[2018-04-27] MEDS ORDERED: SALIVA SUBSTITUTE MOUTH SPRAY 1.5oz PO PRN (15:17)
[2018-04-27] MEDS: INSULIN GLARGINE 100unit/ml INJECTION SQ SCH (20:43)
[2018-04-27] MEDS: CLOPIDOGREL 75 MG TABLET PO SCH (20:44)
[2018-04-27] MEDS: MELATONIN 1 MG TABLET PO SCH (20:45)
[2018-04-27] MEDS: FENOFIBRATE 145 MG TABLET PO SCH (20:46)
[2018-04-27] MEDS: ASPIRIN *EC* 81 MG TABLET PO SCH (20:47)
[2018-04-28] MEDS: ISOSORBIDE MONONITRATE ER 30 MG TABLET PO SCH (06:10)
[2018-04-28] MEDS: LEVOTHYROXINE 137 MCG TABLET PO SCH (06:10)
[2018-04-28] MEDS: ALBUTEROL/IPRATROPIUM 2.5mg-0.5mg/3ml NEB AEROSOL SCH ×4 (07:50→20:00)
[2018-04-28] MEDS: ACYCLOVIR 800 MG PO SCH ×2 (09:34→20:43)
[2018-04-28] MEDS: DULOXETINE 30 MG CAPSULE PO SCH (09:34)
[2018-04-28] MEDS: FERROUS SULFATE 324 MG TABLET PO SCH ×2 (09:34→17:18)
[2018-04-28] MEDS: REFRESH CELLUVISC 1% Eye Drops 0.4ml EACH EYE SCH ×4 (09:34→20:42)
[2018-04-28] MEDS: PredniSONE 20 MG TABLET PO SCH (09:34)
[2018-04-28] MEDS: CEFTRIAXONE 1 G in NS 100 ML IV SCH (09:35)
[2018-04-28] MEDS: POLYETHYL GLYCOL 3350 17gm PACKET PO SCH (09:35)
[2018-04-28] MEDS: MINOCYCLINE 100 MG CAPSULE PO SCH ×2 (09:35→20:43)
[2018-04-28] MEDS: GUAIFENESIN/D-METHORPHAN 600mg/30mg TABLET PO SCH ×2 (09:35→20:42)
[2018-04-28] MEDS: EYE EACH EYE SCH ×2 (09:35→20:41)
[2018-04-28] MEDS: FLUOROMETHOLONE 0.1% EACH EYE SCH ×2 (09:35→20:41)
[2018-04-28] MEDS: SALINE 0.65% NASAL SPRAY 44 ML BOTTLE EA NOSTRIL SCH ×4 (09:35→20:41)
--- NOTE | 2018-04-28 10:53 | Wound Care Progress Note ---
Wound Center Progress Note: Pt seen for wound follow up. Pt sleeping in bed. Spoke to Mamta WHEATLEY; pt is doing well, no complaints of pain. Nurse reports the bandage on L posterior calf is clean, dry, and intact. Wound not visualized at this time. Nurse will change dressing to L posterior calf on Tuesday04/29/18.
--- NOTE | 2018-04-28 12:03 | Progress Note ---
- Date 04/28/18 Subjective: The patient complains of feeling weak and tired. She is eating well. She has her usual chronic pain, but no new pain. She continues to have productive cough with biswas colored phlegm. She denies feeling short of breath. She states she slept well last night. She continues to have intermittent pain and numbness in her hands when they are cold. She states she does not feel cold in general and likes the temperature in her room to be cold. She does not want to have a blanket on her. Objective Vital signs: Temperature 96.9 F 04/28/18 08:00 Pulse Rate 72 04/28/18 08:08 Respiratory Rate 16 04/28/18 11:15 Blood Pressure 152/90 H 04/28/18 08:08 Pulse Oximetry 98 04/28/18 11:15 Height/Weight/BMI: Height 1.57 m Weight 67.5 kg Body Mass Index 26.6 Comments: Afebrile heart rate 72, respirations 16, blood pressure 152/90 GEN-alert, oriented, no acute distress HEENT-sclera anicteric, oropharynx is moist NECK-supple CV-regular rate and rhythm CHEST-coarse breath sounds bilaterally, improving ABD-soft, nontender with positive bowel sounds -no Pepe EXT-no edema left leg, right BKA. Hands and fingers are cold to touch. She continues to have intermittent reddish purple discoloration to her fingertips. Radial pulses are faint but equal bilaterally. NEURO-no focal deficits, alert and oriented SKIN-no rashes Results - Labs CBC & Chem 7: 04/28/18 08:04 04/28/18 08:04 Microbiology Results: Microbiology 04/22/18 19:54 Sputum, Expectorated Gram Stain - Final 04/22/18 19:54 Sputum, Expectorated Sputum Culture - Final Agatha albicans Normal Hemalatha 04/17/18 19:47 Peripheral/Iv Start Blood Culture - Final No Growth After 5 Days 04/17/18 19:39 Port/Picc Blood Culture - Final No Growth After 5 Days 04/18/18 21:30 Sputum, Expectorated Gram Stain - Final 04/18/18 21:30 Sputum, Expectorated Sputum Culture - Final Normal Resp Hemalatha incl. Yeast Assessment and Plan (1) Myelodysplasia (myelodysplastic syndrome) Current visit: Yes Status: Acute (2) Acute kidney injury Current visit: Yes Status: Acute (3) Respiratory insufficiency Current visit: Yes Status: Acute Assessment and Plan: Assessment Respiratory insufficiency w/ hypoxia Suspicious for pneumonia Rhinovirus positive Suprapubic abdominal pain (onset 04/18) Absolute neutropenia JULIAN, creatinine 2.1, baseline ~1.3-resolved Hypernatremia (POA) - resolved Hyperkalemia (not POA) Near syncope Dysphagia MDS - Dacogen and Neulasta q4 weeks per Dr. Santiago Pancytopenia, chronic CHF, diastolic CAD PVD, hx of right BKA Type II DM, peripheral neuropathy Stage III CKD Dyslipidemia Depression Chronic narcotic use Hypothyroid OP, OA SLE, Sjgren's Intermittent cyanosis of the fingertips Plan Pancytopenia continues to improve. White count is 7.7, hemoglobin 9.9, platelets 86 Renal function is better after IV fluids yesterday. Torsemide remains on hold. Continued productive cough with biswas phlegm. Rocephin was discontinued yesterday after 9 days. Chest x-ray showed no pneumonia on 04/26/2018. Will repeat chest x-ray today. Order sputum for Gram stain and culture and sensitivity. The patient was transitioned to oral prednisone. Increase activity as tolerated Hold Lantus at night. Blood glucose this morning was 70 Resuscitation Status: Do Not Resuscitate - Physician Narrative Narrative: Date: 04/27/18 Time: 1256 Hospital Course Summary Disclaimer: The visit summary below is not to be considered part of the above Progress Note. Hospital Course: 04/17/18 Admit, observation status. IVF: 1/2 NS at 100 mL/hr x1L. Repeat labs in am. Hold Torsemide. BP stable in ED. Check orthostatics BID. Trend troponin; pt with significant coronary hx. Monitor telemetry. Scientist/Engineer : Dr. Hudson. Consult speech therapy. Consult PT/OT. Monitor BG; carb consistent diet. Advanced directives: Spouse is DPOA. DNR. 04/18/18 Will change to inpatient admission status secondary to MDS with neutropenia and hypoxia/cough suspicious for pneumonia. Repeat CXR. Obtain sputum culture and respiratory panel. Start DuoNeb and acapella. Start levofloxacin for pulmonary coverage. ANC 0.6 Follow labs. Troponin were neg. Torsemide remains on hold. Creatinine with improvement from 2.1 at presentation to 1.7. Start 1/2NS at 50cc/hr as oral intake low. Speech recommends mechanical soft diet. Not eating much but drinking Ensure. Blood sugars running low - will hold Lantus. PT rec home with HH. 04/19/18 Pt tested + for rhinovirus. Continue DuoNeb and acapella. She is confused this am - could be r/t starting Levaquin. Will switch to Rocephin for coverage of lung pathogens given her immunocompromised state. Hgb dropped 8.3-->7.0. Transfuse 1U PRBC's. Given her abdominal pain and drop in hgb, check CT abd/pelvis and UA. Insert Pepe for accurate I&O. Creatinine improving 2.1-->1.7-->1.5. Will stop IVF. 04/20/18 WBC with increase to 1.2; ANC 432. Hemoglobin increased to 8.1 post transfusion yesterday. Platelets decreased at 23. Will repeat Granix 480mcg today-recheck counts tomorrow. Continue with ceftriaxone for pulmonary coverage. Continue DuoNeb and acapella. Wean O2 as able. Furosemide 20mg x1 - renal status improved: creatinine 1.4, potassium 4.8. Add routine Miralax as bowels slow - hold with loose stool. Sugars showing increase - will start Lantus at 4 units (home dose 9). Encourage PT/OT to help improve functional status. 04/21/18 WBC improving - 1.6 with ANC 896. Hemoglobin stable at 8.2. Platelets decreased at 22. Will repeat Granix 480mcg today - recheck counts tomorrow. Continue with ceftriaxone for pulmonary coverage. Continue DuoNeb and acapella. Wean O2 as able. Will give Bumex 0.5mg IV x1 - creatinine stable at 1.4. Add routine Miralax as bowels slow - hold with loose stool. Sugars still with elevation; will increase Lantus to 6 units (home dose 9). 04/22/18 WBC improving - 2.5 with ANC 1800. Hemoglobin stable at 8.4. Platelets decreased at 22. With continued cough will start Mucinex DM BID. Add nasal saline to moisturize nasal mucosa. Continue with ceftriaxone for pulmonary coverage. Continue DuoNeb and acapella. Wean O2 as able. Give Solu-Medrol 125mg x1 to help decrease wheezing. Will restart home torsemide at 5mg - monitoring volume status, BP, and renal status. Sugars improved; continue Lantus at 6 units (home dose 9). Oral drive decreased. 04/23/18 WBC stable - 2.3 with ANC 2380. Hemoglobin stable at 8.2. Platelets stable at 26. Continue with ceftriaxone for pulmonary coverage. Continue DuoNeb, acapella Mucinex. Wean O2 as able - 1L to maintain saturations. Start Solu-Medrol 62.5mg q6h to help decrease wheezing. Sugars increased after Solu-Medrol yesterday; will increase Lantus to 8 units ( home dose 9). Oral drive decreased. Encourage ambulation to help strength. 04/24/18 WBC decreased to 1.7; ANC 1377. Platelets 29. Granix given on 04/24/18. K increased to 5.5; not on KCl or jose. BUN 50, creatinine 1.3. Decrease Solu-Medrol to BID. Continue DuoNeb, acapella, Mucinex; ceftriaxone, day #6. Needing 1L of oxygen. Blood sugars with intermittent elevations. Hope to see improvements with reduction in steroids. Increase Lantus to 9 U HS (home dose = 6 U). 04/25/18 Counts improved since receiving Granix on 04/24/18: WBC 5.2, hgb 8.8, plt 43 Rocephin day #7 -- consider discontinuing. Continue Solu-Medrol 62.5 mg IV BID. Renal function slightly worse, BUN 51, creatinine 1.4. K improved to 4.8. PRADIP Pepe. Hypoglycemia this am -- will decrease Lantus HS to 4U. 04/26/18 Counts continue to improve. She received a dose of Granix 04/24/2018. Discussed myelodysplastic syndrome yesterday with Dr. Santiago White count is 8.1 up from 5.2. Hemoglobin 9.3 up from 8.8. Platelets 63 up from 43. Continue Rocephin and breathing treatments Start oral prednisone tomorrow Continue to monitor off of torsemide Hyperglycemia is better with decrease in Lantus. Will monitor blood sugars with change to oral prednisone Tachycardia has resolved with restarting half dose of metoprolol. Blood pressure is normal. We'll restart her usual dose of metoprolol this evening. 04/27/18 White count, hgb, platelets and renal function are stable.. Day 9 Rocephin. Continue nebulizer txs, etc. Converted from Solumedrol 62.5mg IV BID to Prednisone 30mg po daily today. Doing well off Torsemide and with restart of home metoprolol. BS's look good today. Watch blood sugars closely with change to oral prednisone Possible discharge soon if she continues to do well. Labs in am.
[2018-04-28] MEDS: HYDROMORPHONE 2 MG TABLET PO PRN (13:37)
--- NOTE | 2018-04-28 13:59 | XRay Report ---
INDICATION: cough PROCEDURE: CHEST 2-VIEWS UPRIGHT (PA & LAT) Encounter: Initial COMPARISON: April 26, 2018 FINDINGS: Elevated left hemidiaphragm. Linear atelectasis or scarring in the left lower lobe again noted. No new or worsening airspace opacity. No pneumothorax or pleural effusion. Exaggerated thoracic kyphosis due to a severe mid thoracic compression fracture. Heart size and mediastinal contours are stable. Pulmonary vascularity is normal. Impression: Stable appearance of the chest without pneumonia. .
[2018-04-28] MEDS: INSULIN GLARGINE 100unit/ml INJECTION SQ SCH (20:41)
[2018-04-28] MEDS: INSULIN REGULAR, HUMAN 100 UNIT/ML INJECTION SQ PRN (20:41)
[2018-04-28] MEDS: FENOFIBRATE 145 MG TABLET PO SCH (20:42)
[2018-04-28] MEDS: CLOPIDOGREL 75 MG TABLET PO SCH (20:42)
[2018-04-28] MEDS: MELATONIN 1 MG TABLET PO SCH (20:43)
[2018-04-28] MEDS: ASPIRIN *EC* 81 MG TABLET PO SCH (20:43)
[2018-04-28] MEDS: CYCLOBENZAPRINE 5 MG TABLET PO PRN (22:43)
[2018-04-29] MEDS: HYDROMORPHONE 2 MG TABLET PO PRN (02:37)
[2018-04-29] MEDS: LEVOTHYROXINE 137 MCG TABLET PO SCH (06:02)
[2018-04-29] MEDS: ISOSORBIDE MONONITRATE ER 30 MG TABLET PO SCH (06:03)
[2018-04-29] MEDS: ALBUTEROL/IPRATROPIUM 2.5mg-0.5mg/3ml NEB AEROSOL SCH ×4 (07:09→20:20)
[2018-04-29] MEDS: ACYCLOVIR 800 MG PO SCH ×2 (08:22→21:31)
[2018-04-29] MEDS: DULOXETINE 30 MG CAPSULE PO SCH (08:22)
[2018-04-29] MEDS: REFRESH CELLUVISC 1% Eye Drops 0.4ml EACH EYE SCH ×4 (08:22→21:34)
[2018-04-29] MEDS: GUAIFENESIN/D-METHORPHAN 600mg/30mg TABLET PO SCH ×2 (08:22→21:31)
[2018-04-29] MEDS: FLUOROMETHOLONE 0.1% EACH EYE SCH ×2 (08:23→21:35)
[2018-04-29] MEDS: MINOCYCLINE 100 MG CAPSULE PO SCH ×2 (08:23→21:32)
[2018-04-29] MEDS: PredniSONE 20 MG TABLET PO SCH (08:23)
[2018-04-29] MEDS: SALINE 0.65% NASAL SPRAY 44 ML BOTTLE EA NOSTRIL SCH ×4 (08:23→21:36)
[2018-04-29] MEDS: EYE EACH EYE SCH ×2 (08:23→21:35)
[2018-04-29] MEDS: POLYETHYL GLYCOL 3350 17gm PACKET PO SCH (08:23)
[2018-04-29] MEDS: FERROUS SULFATE 324 MG TABLET PO SCH ×2 (08:23→17:29)
[2018-04-29] MEDS: CEFTRIAXONE 1 G in NS 100 ML IV SCH (09:41)
[2018-04-29] MEDS: HYDROCODONE/CHLORPHENIRAMINE ER ORAL LIQ 5ml PO PRN (13:31)
--- NOTE | 2018-04-29 13:35 | Progress Note ---
- Date 04/29/18 Subjective: 73 year old chronically ill woman who was seen by Dr. Santiago on 04/17/18. Per staff at the cancer center, she began to complain of a sore throat and difficulty swallowing, and Dr. Brice was able to see her in his clinic after her lab draw there. Per Dr. Brice's report, the patient was confused and staff was unable to get a BP. Her radial pulse was weak and thready. From there she was taken to [facility]. When assessed by Hospitalist her primary concern was pain across her lower back. She has chronic pain but it seemed worse today. She also has been feeling more short of breath than usual. She c/o productive cough and just recently completed a course of Levaquin. She notes sinus congestion/drainage. She states the sore throat/dry mouth/difficulty swallowing is a new finding. No recent fevers. She denied chest pain/palpitations. She notes weakness and dizziness. She complains of a headache. She uses a walker to ambulate. She has multiple abrasions on her arms/legs with confluent ecchymoses -- she blames many of these abrasions on her cat. She denies any abdominal pain or vomiting or bowel problems and reports that she's been eating/drinking fine. She denied dysuria. Her last chemo was 04/07/18 (gets it every 4 weeks - Dacogen and Neulasta). Patient was originally admitted under observation status due to dehydration causes low blood pressure and never syncope. She also had acute renal failure. She was given IV fluids. Her blood pressure stabilized, renal status improved. She was found to be quite pancytopenic. She was made inpatient secondary to her MDS and neutropenia with hypoxia and cough suspicious for pneumonia. Levofloxacin was initiated. She was neutropenic and placed in precautions. She was given Granix and she was transfused with one unit of packed red blood cells. All her count stabilized nicely. She continued offer diuretics. Sputum cultures were negative for pathogens only showed normal yaneth. She was changed over from IV steroids to oral steroids. Her creatinine came down to 1.2 from 2.1 on admission. Her tachycardia resolved and she was doing well on her home metoprolol dose. Seen by me this morning she was sitting up in her chair. She reported her breathing was fine. She was not on any oxygen. She still has a cough but states she's not getting anything up. She denies any fever or chills. She denies any chest pain, pressure or tightness. She denied any nausea, vomiting, diarrhea or constipation. She reports eating well. She denies any urinary symptoms. Objective Vital signs: Temperature 96.6 F L 04/28/18 23:34 Pulse Rate 80 04/29/18 08:00 Respiratory Rate 16 04/29/18 10:30 Blood Pressure 149/75 H 04/29/18 08:00 Pulse Oximetry 93 04/29/18 10:30 Height/Weight/BMI: Height 1.57 m Weight 67.5 kg Body Mass Index 26.6 Comments: Gen: alert and oriented. NAD. Skin: warm and dry HEENT: NC/AT PERRL, EOMI, Sclera, lids and conjunctiva wnl. MMM. OP clear. Neck: No JVD, Carotids 2+ without bruits. Lungs: Coarse with rhonchi, Soft exp wheezes R>L. CV: regular, No murmur, rubs or gallops. Right BKA, Left DP palp. Radial pulses palp. No edema on the left. Abd: soft. +BS, NT/ND. MS: [facility] Neuro: No focal deficit Psy: Appropriate mood and affect Results - Labs CBC & Chem 7: 04/29/18 04:00 04/29/18 04:00 Microbiology Results: Microbiology 04/22/18 19:54 Sputum, Expectorated Gram Stain - Final 04/22/18 19:54 Sputum, Expectorated Sputum Culture - Final Agatha albicans Normal Yaneth 04/17/18 19:47 Peripheral/Iv Start Blood Culture - Final No Growth After 5 Days 04/17/18 19:39 Port/Picc Blood Culture - Final No Growth After 5 Days 04/18/18 21:30 Sputum, Expectorated Gram Stain - Final 04/18/18 21:30 Sputum, Expectorated Sputum Culture - Final Normal Resp Yaneth incl. Yeast - Echocardiogram History of Echocardiogram: 01/16/18. EF 55% Assessment and Plan (1) Myelodysplasia (myelodysplastic syndrome) Current visit: Yes Status: Acute (2) Acute kidney injury Current visit: Yes Status: Acute (3) Respiratory insufficiency Current visit: Yes Status: Acute Assessment and Plan: Assessment and plan: Hypoxic respiratory insufficiency -positive for rhinovirus -improving and is currently on room air Pancytopenia -Pt with MDS -See , and receives Dacogen and Neulasta q4wks -WBC normalized. Hgb stable, Platelets up to 72,000 today -one unit packed red blood cells transfused on 04/19/18 -Granix given 04/19, 04/20, 04/21 and 04/24. Acute renal failure on chronic kidney disease stage III -resolved Diabetes -on Lantus and sliding scale insulin Coronary artery disease -recent drug eluting stent to the LAD -history of prior stents -on aspirin and Plavix Hypertension -rather labile but reasonable control on metoprolol and Imdur Dyslipidemia -not on a statin but on Fenofibrate Hypothyroidism -on Synthroid Sjgren's, SLE Peripheral artery disease -status post right BKA -aspirin and Plavix Depression -on duloxetine Chronic pain -on chronic narcotics Prophylaxis -SCD and PPI DVT Prophylaxis: SCD's GI Prophylaxis: Protonix Resuscitation Status: Do Not Resuscitate - Physician Narrative Narrative: Date: 04/29/18 Time: 1317 Hospital Course Summary Disclaimer: The visit summary below is not to be considered part of the above Progress Note. Hospital Course: 04/17/18 Admit, observation status. IVF: 1/2 NS at 100 mL/hr x1L. Repeat labs in am. Hold Torsemide. BP stable in ED. Check orthostatics BID. Trend troponin; pt with significant coronary hx. Monitor telemetry. Leno Sewer : Dr. Hudson. Consult speech therapy. Consult PT/OT. Monitor BG; carb consistent diet. Advanced directives: Spouse is DPOA. DNR. 04/18/18 Will change to inpatient admission status secondary to MDS with neutropenia and hypoxia/cough suspicious for pneumonia. Repeat CXR. Obtain sputum culture and respiratory panel. Start DuoNeb and acapella. Start levofloxacin for pulmonary coverage. ANC 0.6 Follow labs. Troponin were neg. Torsemide remains on hold. Creatinine with improvement from 2.1 at presentation to 1.7. Start 1/2NS at 50cc/hr as oral intake low. Speech recommends mechanical soft diet. Not eating much but drinking Ensure. Blood sugars running low - will hold Lantus. PT rec home with HH. 04/19/18 Pt tested + for rhinovirus. Continue DuoNeb and acapella. She is confused this am - could be r/t starting Levaquin. Will switch to Rocephin for coverage of lung pathogens given her immunocompromised state. Hgb dropped 8.3-->7.0. Transfuse 1U PRBC's. Given her abdominal pain and drop in hgb, check CT abd/pelvis and UA. Insert Pepe for accurate I&O. Creatinine improving 2.1-->1.7-->1.5. Will stop IVF. 04/20/18 WBC with increase to 1.2; ANC 432. Hemoglobin increased to 8.1 post transfusion yesterday. Platelets decreased at 23. Will repeat Granix 480mcg today-recheck counts tomorrow. Continue with ceftriaxone for pulmonary coverage. Continue DuoNeb and acapella. Wean O2 as able. Furosemide 20mg x1 - renal status improved: creatinine 1.4, potassium 4.8. Add routine Miralax as bowels slow - hold with loose stool. Sugars showing increase - will start Lantus at 4 units (home dose 9). Encourage PT/OT to help improve functional status. 04/21/18 WBC improving - 1.6 with ANC 896. Hemoglobin stable at 8.2. Platelets decreased at 22. Will repeat Granix 480mcg today - recheck counts tomorrow. Continue with ceftriaxone for pulmonary coverage. Continue DuoNeb and acapella. Wean O2 as able. Will give Bumex 0.5mg IV x1 - creatinine stable at 1.4. Add routine Miralax as bowels slow - hold with loose stool. Sugars still with elevation; will increase Lantus to 6 units (home dose 9). 04/22/18 WBC improving - 2.5 with ANC 1800. Hemoglobin stable at 8.4. Platelets decreased at 22. With continued cough will start Mucinex DM BID. Add nasal saline to moisturize nasal mucosa. Continue with ceftriaxone for pulmonary coverage. Continue DuoNeb and acapella. Wean O2 as able. Give Solu-Medrol 125mg x1 to help decrease wheezing. Will restart home torsemide at 5mg - monitoring volume status, BP, and renal status. Sugars improved; continue Lantus at 6 units (home dose 9). Oral drive decreased. 04/23/18 WBC stable - 2.3 with ANC 2380. Hemoglobin stable at 8.2. Platelets stable at 26. Continue with ceftriaxone for pulmonary coverage. Continue DuoNeb, acapella Mucinex. Wean O2 as able - 1L to maintain saturations. Start Solu-Medrol 62.5mg q6h to help decrease wheezing. Sugars increased after Solu-Medrol yesterday; will increase Lantus to 8 units ( home dose 9). Oral drive decreased. Encourage ambulation to help strength. 04/24/18 WBC decreased to 1.7; ANC 1377. Platelets 29. Granix given on 04/24/18. K increased to 5.5; not on KCl or jose. BUN 50, creatinine 1.3. Decrease Solu-Medrol to BID. Continue DuoNeb, acapella, Mucinex; ceftriaxone, day #6. Needing 1L of oxygen. Blood sugars with intermittent elevations. Hope to see improvements with reduction in steroids. Increase Lantus to 9 U HS (home dose = 6 U). 04/25/18 Counts improved since receiving Granix on 04/24/18: WBC 5.2, hgb 8.8, plt 43 Rocephin day #7 -- consider discontinuing. Continue Solu-Medrol 62.5 mg IV BID. Renal function slightly worse, BUN 51, creatinine 1.4. K improved to 4.8. PRADIP Pepe. Hypoglycemia this am -- will decrease Lantus HS to 4U. 04/26/18 Counts continue to improve. She received a dose of Granix 04/24/2018. Discussed myelodysplastic syndrome yesterday with Dr. Santiago White count is 8.1 up from 5.2. Hemoglobin 9.3 up from 8.8. Platelets 63 up from 43. Continue Rocephin and breathing treatments Start oral prednisone tomorrow Continue to monitor off of torsemide Hyperglycemia is better with decrease in Lantus. Will monitor blood sugars with change to oral prednisone Tachycardia has resolved with restarting half dose of metoprolol. Blood pressure is normal. We'll restart her usual dose of metoprolol this evening. 04/27/18 White count, hgb, platelets and renal function are stable.. Day 9 Rocephin. Continue nebulizer txs, etc. Converted from Solumedrol 62.5mg IV BID to Prednisone 30mg po daily today. Doing well off Torsemide and with restart of home metoprolol. BS's look good today. Watch blood sugars closely with change to oral prednisone Possible discharge soon if she continues to do well. Labs in am.
[2018-04-29] MEDS: MELATONIN 1 MG TABLET PO SCH (21:32)
[2018-04-29] MEDS: FENOFIBRATE 145 MG TABLET PO SCH (21:32)
[2018-04-29] MEDS: CLOPIDOGREL 75 MG TABLET PO SCH (21:34)
[2018-04-29] MEDS: ASPIRIN *EC* 81 MG TABLET PO SCH (21:35)
[2018-04-29] MEDS: INSULIN GLARGINE 100unit/ml INJECTION SQ SCH (21:36)
[2018-04-30] MEDS: ISOSORBIDE MONONITRATE ER 30 MG TABLET PO SCH (06:26)
[2018-04-30] MEDS: LEVOTHYROXINE 137 MCG TABLET PO SCH (06:26)
[2018-04-30] MEDS: PANTOPRAZOLE 20 MG TABLET PO SCH (06:26)
[2018-04-30] MEDS: ALBUTEROL/IPRATROPIUM 2.5mg-0.5mg/3ml NEB AEROSOL SCH ×4 (07:33→19:59)
--- NOTE | 2018-04-30 08:50 | Progress Note ---
- Date 04/30/18 Subjective: 73 year old chronically ill woman who was seen by Dr. Santiago on 04/17/18. Per staff at the cancer center, she began to complain of a sore throat and difficulty swallowing, and Dr. Brice was able to see her in his clinic after her lab draw there. Per Dr. Brice's report, the patient was confused and staff was unable to get a BP. Her radial pulse was weak and thready. From there she was taken to [facility]. When assessed by Hospitalist her primary concern was pain across her lower back. She has chronic pain but it seemed worse today. She also has been feeling more short of breath than usual. She c/o productive cough and just recently completed a course of Levaquin. She notes sinus congestion/drainage. She states the sore throat/dry mouth/difficulty swallowing is a new finding. No recent fevers. She denied chest pain/palpitations. She notes weakness and dizziness. She complains of a headache. She uses a walker to ambulate. She has multiple abrasions on her arms/legs with confluent ecchymoses -- she blames many of these abrasions on her cat. She denies any abdominal pain or vomiting or bowel problems and reports that she's been eating/drinking fine. She denied dysuria. Her last chemo was 04/07/18 (gets it every 4 weeks - Dacogen and Neulasta). Patient was originally admitted under observation status due to dehydration causes low blood pressure and never syncope. She also had acute renal failure. She was given IV fluids. Her blood pressure stabilized, renal status improved. She was found to be quite pancytopenic. She was made inpatient secondary to her MDS and neutropenia with hypoxia and cough suspicious for pneumonia. Levofloxacin was initiated. She was neutropenic and placed in precautions. She was given Granix and she was transfused with one unit of packed red blood cells. All her count stabilized nicely. She continued offer diuretics. Sputum cultures were negative for pathogens only showed normal yaneth. She was changed over from IV steroids to oral steroids. Her creatinine came down to 1.2 from 2.1 on admission. Her tachycardia resolved and she was doing well on her home metoprolol dose. Seen by me this morning she was sitting up in her chair. She feels she is back to baseline. She does continue to have a very course loose sounding cough. She is getting up some biswas sputum. She denies any fever or chills. She denies any chest pain, pressure or tightness. She denied any nausea, vomiting, diarrhea or constipation. She reports eating well. She denies any urinary symptoms. She is starting to develop some discomfort under her prosthesis on her stump. There is a couple of areas that are slightly erythematous. There is one on the far lateral edge of the stump where the skin is intact with a bluish center and an erythematous ring around it. There is an area just behind the knee on the lateral side that looks like an abrasion with surrounding erythema. The nurses going to dress it and we will consult wound and skin tomorrow. I believe it just needs a protective dressing at this time. Objective Vital signs: Temperature 97 F 04/30/18 08:05 Pulse Rate 69 04/30/18 08:05 Respiratory Rate 16 04/30/18 08:05 Blood Pressure 135/77 04/30/18 08:05 Pulse Oximetry 97 04/30/18 08:05 Height/Weight/BMI: Height 1.57 m Weight 65.8 kg Body Mass Index 26.6 Comments: Gen: alert and oriented. NAD. Skin: warm and dry, two small areas of skin changes on the right stump: There is one on the far lateral edge of the stump where the skin is intact with a bluish center and an erythematous ring around it. There is an area just behind the knee on the lateral side that looks like an abrasion with surrounding erythema. Hands are quite red with reasonable capillary refill. Her arms and left leg are purple to blackish. HEENT: NC/AT PERRL, EOMI, Sclera, lids and conjunctiva wnl. MMM. OP clear. Neck: No JVD, Carotids 2+ without bruits. Lungs: Coarse with rhonchi, Soft exp wheezes R>L. CV: regular, No murmur, rubs or gallops. Right BKA, Left DP palp. Radial pulses palp. No edema on the left. Abd: soft. +BS, NT/ND. MS: [facility] Neuro: No focal deficit Psy: Appropriate mood and affect Results - Labs CBC & Chem 7: 04/30/18 04:04 04/30/18 04:04 Microbiology Results: Microbiology 04/22/18 19:54 Sputum, Expectorated Gram Stain - Final 04/22/18 19:54 Sputum, Expectorated Sputum Culture - Final Agatha albicans Normal Yaneth 04/17/18 19:47 Peripheral/Iv Start Blood Culture - Final No Growth After 5 Days 04/17/18 19:39 Port/Picc Blood Culture - Final No Growth After 5 Days 04/18/18 21:30 Sputum, Expectorated Gram Stain - Final 04/18/18 21:30 Sputum, Expectorated Sputum Culture - Final Normal Resp Yaneth incl. Yeast Assessment and Plan (1) Myelodysplasia (myelodysplastic syndrome) Current visit: Yes Status: Acute (2) Acute kidney injury Current visit: Yes Status: Acute (3) Respiratory insufficiency Current visit: Yes Status: Acute Assessment and Plan: Assessment and plan: Hypoxic respiratory insufficiency -positive for rhinovirus -improving and is currently on room air Pancytopenia -Pt with MDS -See , and receives Dacogen and Neulasta q4wks -WBC normalized. Hgb stable, Platelets up to 72,000 today -one unit packed red blood cells transfused on 04/19/18 -Granix given 04/19, 04/20, 04/21 and 04/24. Acute renal failure on chronic kidney disease stage III -resolved Diabetes -on Lantus and sliding scale insulin Coronary artery disease -recent drug eluting stent to the LAD -history of prior stents -on aspirin and Plavix Hypertension -rather labile but reasonable control on metoprolol and Imdur Dyslipidemia -not on a statin but on Fenofibrate Hypothyroidism -on Synthroid Sjgren's, SLE Peripheral artery disease -status post right BKA -aspirin and Plavix Depression -on duloxetine Chronic pain -on chronic narcotics Prophylaxis -SCD and PPI May possibly be able to go home tomorrow. DVT Prophylaxis: SCD's GI Prophylaxis: Protonix Resuscitation Status: Do Not Resuscitate - Physician Narrative Narrative: Date: 04/30/18 Time: 0849 Hospital Course Summary Disclaimer: The visit summary below is not to be considered part of the above Progress Note. Hospital Course: 04/17/18 Admit, observation status. IVF: 1/2 NS at 100 mL/hr x1L. Repeat labs in am. Hold Torsemide. BP stable in ED. Check orthostatics BID. Trend troponin; pt with significant coronary hx. Monitor telemetry. Pick Up : Dr. Hudson. Consult speech therapy. Consult PT/OT. Monitor BG; carb consistent diet. Advanced directives: Spouse is DPOA. DNR. 04/18/18 Will change to inpatient admission status secondary to MDS with neutropenia and hypoxia/cough suspicious for pneumonia. Repeat CXR. Obtain sputum culture and respiratory panel. Start DuoNeb and acapella. Start levofloxacin for pulmonary coverage. ANC 0.6 Follow labs. Troponin were neg. Torsemide remains on hold. Creatinine with improvement from 2.1 at presentation to 1.7. Start 1/2NS at 50cc/hr as oral intake low. Speech recommends mechanical soft diet. Not eating much but drinking Ensure. Blood sugars running low - will hold Lantus. PT rec home with HH. 04/19/18 Pt tested + for rhinovirus. Continue DuoNeb and acapella. She is confused this am - could be r/t starting Levaquin. Will switch to Rocephin for coverage of lung pathogens given her immunocompromised state. Hgb dropped 8.3-->7.0. Transfuse 1U PRBC's. Given her abdominal pain and drop in hgb, check CT abd/pelvis and UA. Insert Pepe for accurate I&O. Creatinine improving 2.1-->1.7-->1.5. Will stop IVF. 04/20/18 WBC with increase to 1.2; ANC 432. Hemoglobin increased to 8.1 post transfusion yesterday. Platelets decreased at 23. Will repeat Granix 480mcg today-recheck counts tomorrow. Continue with ceftriaxone for pulmonary coverage. Continue DuoNeb and acapella. Wean O2 as able. Furosemide 20mg x1 - renal status improved: creatinine 1.4, potassium 4.8. Add routine Miralax as bowels slow - hold with loose stool. Sugars showing increase - will start Lantus at 4 units (home dose 9). Encourage PT/OT to help improve functional status. 04/21/18 WBC improving - 1.6 with ANC 896. Hemoglobin stable at 8.2. Platelets decreased at 22. Will repeat Granix 480mcg today - recheck counts tomorrow. Continue with ceftriaxone for pulmonary coverage. Continue DuoNeb and acapella. Wean O2 as able. Will give Bumex 0.5mg IV x1 - creatinine stable at 1.4. Add routine Miralax as bowels slow - hold with loose stool. Sugars still with elevation; will increase Lantus to 6 units (home dose 9). 04/22/18 WBC improving - 2.5 with ANC 1800. Hemoglobin stable at 8.4. Platelets decreased at 22. With continued cough will start Mucinex DM BID. Add nasal saline to moisturize nasal mucosa. Continue with ceftriaxone for pulmonary coverage. Continue DuoNeb and acapella. Wean O2 as able. Give Solu-Medrol 125mg x1 to help decrease wheezing. Will restart home torsemide at 5mg - monitoring volume status, BP, and renal status. Sugars improved; continue Lantus at 6 units (home dose 9). Oral drive decreased. 04/23/18 WBC stable - 2.3 with ANC 2380. Hemoglobin stable at 8.2. Platelets stable at 26. Continue with ceftriaxone for pulmonary coverage. Continue DuoNeb, acapella Mucinex. Wean O2 as able - 1L to maintain saturations. Start Solu-Medrol 62.5mg q6h to help decrease wheezing. Sugars increased after Solu-Medrol yesterday; will increase Lantus to 8 units ( home dose 9). Oral drive decreased. Encourage ambulation to help strength. 04/24/18 WBC decreased to 1.7; ANC 1377. Platelets 29. Granix given on 04/24/18. K increased to 5.5; not on KCl or jose. BUN 50, creatinine 1.3. Decrease Solu-Medrol to BID. Continue DuoNeb, acapella, Mucinex; ceftriaxone, day #6. Needing 1L of oxygen. Blood sugars with intermittent elevations. Hope to see improvements with reduction in steroids. Increase Lantus to 9 U HS (home dose = 6 U). 04/25/18 Counts improved since receiving Granix on 04/24/18: WBC 5.2, hgb 8.8, plt 43 Rocephin day #7 -- consider discontinuing. Continue Solu-Medrol 62.5 mg IV BID. Renal function slightly worse, BUN 51, creatinine 1.4. K improved to 4.8. PRADIP Pepe. Hypoglycemia this am -- will decrease Lantus HS to 4U. 04/26/18 Counts continue to improve. She received a dose of Granix 04/24/2018. Discussed myelodysplastic syndrome yesterday with Dr. Santiago White count is 8.1 up from 5.2. Hemoglobin 9.3 up from 8.8. Platelets 63 up from 43. Continue Rocephin and breathing treatments Start oral prednisone tomorrow Continue to monitor off of torsemide Hyperglycemia is better with decrease in Lantus. Will monitor blood sugars with change to oral prednisone Tachycardia has resolved with restarting half dose of metoprolol. Blood pressure is normal. We'll restart her usual dose of metoprolol this evening. 04/27/18 White count, hgb, platelets and renal function are stable.. Day 9 Rocephin. Continue nebulizer txs, etc. Converted from Solumedrol 62.5mg IV BID to Prednisone 30mg po daily today. Doing well off Torsemide and with restart of home metoprolol. BS's look good today. Watch blood sugars closely with change to oral prednisone Possible discharge soon if she continues to do well. Labs in am.
[2018-04-30] MEDS: CEFTRIAXONE 1 G in NS 100 ML IV SCH (08:58)
[2018-04-30] MEDS: SALINE FLUSH 10ml SYRINGE IV PRN (08:58)
[2018-04-30] MEDS: PredniSONE 20 MG TABLET PO SCH (08:59)
[2018-04-30] MEDS: POLYETHYL GLYCOL 3350 17gm PACKET PO SCH (08:59)
[2018-04-30] MEDS: LISINOPRIL 2.5 MG TABLET PO SCH (08:59)
[2018-04-30] MEDS: ACYCLOVIR 800 MG PO SCH ×2 (08:59→21:29)
[2018-04-30] MEDS: FERROUS SULFATE 324 MG TABLET PO SCH ×2 (09:00→16:47)
[2018-04-30] MEDS: MINOCYCLINE 100 MG CAPSULE PO SCH ×2 (09:00→21:30)
[2018-04-30] MEDS: GUAIFENESIN/D-METHORPHAN 600mg/30mg TABLET PO SCH ×2 (09:00→21:27)
[2018-04-30] MEDS: DULOXETINE 30 MG CAPSULE PO SCH (09:00)
[2018-04-30] MEDS: SALINE 0.65% NASAL SPRAY 44 ML BOTTLE EA NOSTRIL SCH ×4 (09:01→21:33)
[2018-04-30] MEDS: REFRESH CELLUVISC 1% Eye Drops 0.4ml EACH EYE SCH ×4 (09:01→21:26)
[2018-04-30] MEDS: FLUOROMETHOLONE 0.1% EACH EYE SCH ×2 (09:01→21:33)
[2018-04-30] MEDS: EYE EACH EYE SCH ×2 (09:01→21:33)
[2018-04-30] MEDS: CALCIUM CARBONATE 500 MG TABLET PO SCH ×2 (11:59→16:47)
[2018-04-30] MEDS: MAGNESIUM CHLORIDE 64 MG PO SCH ×2 (11:59→16:48)
[2018-04-30] MEDS: BUDESONIDE INH.SOLN 0.5mg/2ml NEB IPPB SCH (19:59)
[2018-04-30] MEDS ORDERED: GUAIFENESIN LA 600 MG TABLET PO SCH (21:00)
[2018-04-30] MEDS: FENOFIBRATE 145 MG TABLET PO SCH (21:28)
[2018-04-30] MEDS: MELATONIN 1 MG TABLET PO SCH (21:29)
[2018-04-30] MEDS: CLOPIDOGREL 75 MG TABLET PO SCH (21:29)
[2018-04-30] MEDS: ASPIRIN *EC* 81 MG TABLET PO SCH (21:30)
[2018-04-30] MEDS: INSULIN GLARGINE 100unit/ml INJECTION SQ SCH (21:32)
[2018-04-30] MEDS: CYCLOBENZAPRINE 5 MG TABLET PO PRN (21:40)
[2018-05-01] MEDS: HYDROCODONE/CHLORPHENIRAMINE ER ORAL LIQ 5ml PO PRN (00:08)
[2018-05-01] MEDS: SALINE FLUSH 10ml SYRINGE IV PRN (04:06)
[2018-05-01] MEDS: LEVOTHYROXINE 137 MCG TABLET PO SCH (06:19)
[2018-05-01] MEDS: ISOSORBIDE MONONITRATE ER 30 MG TABLET PO SCH (06:19)
[2018-05-01] MEDS: PANTOPRAZOLE 20 MG TABLET PO SCH (06:19)
[2018-05-01] MEDS: ALBUTEROL/IPRATROPIUM 2.5mg-0.5mg/3ml NEB AEROSOL SCH ×3 (06:47→16:19)
[2018-05-01] MEDS: BUDESONIDE INH.SOLN 0.5mg/2ml NEB IPPB SCH (06:47)
[2018-05-01 07:08] VITALS: PULSE 68
[2018-05-01] MEDS: ACYCLOVIR 800 MG PO SCH (08:30)
[2018-05-01] MEDS: LISINOPRIL 2.5 MG TABLET PO SCH (08:30)
[2018-05-01] MEDS: DULOXETINE 30 MG CAPSULE PO SCH (08:30)
[2018-05-01] MEDS: PredniSONE 20 MG TABLET PO SCH (08:30)
[2018-05-01] MEDS: MINOCYCLINE 100 MG CAPSULE PO SCH (08:30)
[2018-05-01] MEDS: GUAIFENESIN/D-METHORPHAN 600mg/30mg TABLET PO SCH (08:30)
[2018-05-01] MEDS: FERROUS SULFATE 324 MG TABLET PO SCH (08:31)
[2018-05-01] MEDS: REFRESH CELLUVISC 1% Eye Drops 0.4ml EACH EYE SCH ×2 (08:33→13:27)
[2018-05-01] MEDS: FLUOROMETHOLONE 0.1% EACH EYE SCH (08:34)
[2018-05-01] MEDS: POLYETHYL GLYCOL 3350 17gm PACKET PO SCH (08:34)
[2018-05-01] MEDS: EYE EACH EYE SCH (08:34)
[2018-05-01] MEDS: CEFTRIAXONE 1 G in NS 100 ML IV SCH (08:53)
[2018-05-01] MEDS: SALINE 0.65% NASAL SPRAY 44 ML BOTTLE EA NOSTRIL SCH ×2 (09:24→13:27)
[2018-05-01] MEDS: CALCIUM CARBONATE 500 MG TABLET PO SCH (10:29)
[2018-05-01] MEDS: MAGNESIUM CHLORIDE 64 MG PO SCH (10:29)
--- NOTE | 2018-05-01 14:34 | Discharge Summary ---
Discharge Information Date of admission: 04/18/18 14:27 Anticipated date of discharge: 05/01/18 Attending Physician: Adwoa Roman MD Primary care physician: Yoni Brice MD Consults: Wound and skin nurse consult Dietary consult - Discharge Diagnosis (1) Myelodysplasia (myelodysplastic syndrome) Status: Acute (2) Acute kidney injury Status: Acute (3) Respiratory insufficiency Status: Acute Respiratory insufficiency w/ hypoxia Rhinovirus positive Probable COPD with COPD exacerbation Suprapubic abdominal pain (onset 04/18)-resolved Absolute neutropenia JULIAN, creatinine 2.1, baseline ~1.3-resolved Hypernatremia (POA) - resolved Hyperkalemia (not POA)-resolved Near syncope Dysphagia MDS - Dacogen and Neulasta q4 weeks per Dr. Santiago Pancytopenia, chronic CHF, diastolic CAD PVD, hx of right BKA Type II DM, peripheral neuropathy -hypoglycemia on home insulin dose, insulin decreased Stage III CKD Dyslipidemia Depression Chronic narcotic use Hypothyroid OP, OA SLE, Sjgren's Intermittent cyanosis of the fingertips Skin breakdown on stump of right BKA-followed by wound and skin - Procedures Procedures: Port-A-Cath accessed this hospital course Transfusion of 1 unit of blood on 04/19/2018 Granix injection for neutropenia on 04/20, 04/21, and 04/24/2018 - Laboratory Labs: 05/01/18 03:57 05/01/18 03:57 Laboratory Tests 04/17/18 04/17/18 04/17/18 12:41 12:41 15:23 WBC 2.0 L Hgb 8.6 L Plt Count 43 L Creatinine 2.1 H Phosphorus Magnesium Troponin I < 0.012 < 0.012 TSH Entero/Rhino (PCR) 04/17/18 04/18/18 04/18/18 19:39 03:50 03:50 WBC 1.7 L* Hgb 8.3 L Plt Count 34 L Creatinine Phosphorus Magnesium Troponin I < 0.012 < 0.012 TSH Entero/Rhino (PCR) 04/18/18 04/19/18 04/19/18 15:16 04:34 04:34 WBC 0.9 L* D Hgb 7.0 L D Plt Count 43 L Creatinine Phosphorus Magnesium Troponin I TSH 1.16 Entero/Rhino (PCR) Detected A* 04/19/18 04/20/18 04/21/18 17:56 04:35 04:28 WBC 1.2 L* 1.6 L* Hgb 8.3 L D Plt Count 23 L* D 22 L* Creatinine Phosphorus Magnesium Troponin I TSH Entero/Rhino (PCR) 04/22/18 04/23/18 04/24/18 04:51 05:02 04:18 WBC 2.5 L D 2.3 L 1.7 L* Hgb Plt Count 22 L* 26 L* 29 L* Creatinine Phosphorus Magnesium Troponin I TSH Entero/Rhino (PCR) 04/25/18 04/27/18 04/28/18 03:46 04:14 08:04 WBC 5.2 D Hgb Plt Count 43 L D 86 L Creatinine Phosphorus 4.4 Magnesium Troponin I TSH Entero/Rhino (PCR) 05/01/18 03:57 WBC Hgb Plt Count Creatinine Phosphorus Magnesium 1.8 Troponin I TSH Entero/Rhino (PCR) - Microbiology Microbiology 04/22/18 19:54 Sputum, Expectorated Gram Stain - Final 04/22/18 19:54 Sputum, Expectorated Sputum Culture - Final Agatha albicans Normal Yaneth 04/17/18 19:47 Peripheral/Iv Start Blood Culture - Final No Growth After 5 Days 04/17/18 19:39 Port/Picc Blood Culture - Final No Growth After 5 Days 04/18/18 21:30 Sputum, Expectorated Gram Stain - Final 04/18/18 21:30 Sputum, Expectorated Sputum Culture - Final Normal Resp Yaneth incl. Yeast - Radiology Radiology: Chest x-ray 04/17/2018 Impression: Left basilar atelectasis with elevation of the left diaphragm. No statement change from prior exam. Chest x-ray 04/18/2018 Impression: No significant change from prior examination. Expiratory exam with left basilar atelectasis and/or scarring as well as elevation of the left hemidiaphragm, unchanged. Chest x-ray 04/24/2018 IMPRESSION: 1. Stable elevation of the left hemidiaphragm and bibasilar atelectasis without evidence for developing pneumonia. Limited depth of inspiration. 2. Upper limits normal sized heart without CHF. Chest x-ray 04/26/2013 Impression: Stable chest without focal pneumonia or congestive failure. Chest x-ray 04/28/2018 Impression: Stable appearance of the chest without pneumonia. Date of Exam: 04/19/18 Type of Exam(s): CT abdomen pelvis wo con Reason for Exam(s): suprapubic abdominal pain, anemia Comparison: 09/02/2017 Findings: The included portions of the lung bases demonstrate nonspecific dependent atelectasis and/or scarring. No pleural effusion. Heart size is normal. No pericardial effusion. Liver demonstrates some possible intrahepatic and extrahepatic biliary ductal dilation. Spleen is enlarged. Adrenal glands are normal. Kidneys are symmetric in size without hydronephrosis or perinephric collection. No definite obstructing ureteral calculus. There are some central vascular calcifications. Gallbladder is not seen. Pancreas is not well seen. Abdominal aorta is nonaneurysmal with extensive calcific atherosclerotic disease. No retroperitoneal or mesenteric adenopathy. No bowel distention or bowel wall thickening. Pelvis: No definite distal ureteral obstructing calculus. A normal appendix is not identified with certainty. No free fluid or pelvic sidewall adenopathy. There is no significant distal colonic diverticulosis or evidence for diverticulitis. Impression: Splenomegaly. Moderate intrahepatic and extrahepatic biliary ductal dilatation postcholecystectomy. No evidence for infectious or inflammatory process. No nephrolithiasis or evidence for obstructing ureteral calculus. No evidence for obstruction or free air. History of Present Illness HPI: Zeenat Noland is a 73 year old chronically ill woman who was seen by Dr. Santiago on 04/17/18. Per staff at the cancer center, she began to complain of a sore throat and difficulty swallowing, and Dr. Brice was able to see her in his clinic after her lab draw there. Per Dr. Brice's report, the patient was confused and staff was unable to get a BP. Her radial pulse was weak and thready. From there she was taken to [facility]. When I assessed Zeenat, her primary concern was pain across her lower back. She has chronic pain but it seemed worse today. She also has been feeling more short of breath than usual. She c/o productive cough and just recently completed a course of Levaquin. She notes sinus congestion/drainage. She states the sore throat/dry mouth/difficulty swallowing is a new finding. No recent fevers. She denied chest pain/palpitations. She notes weakness and dizziness. She complains of a headache. She uses a walker to ambulate. She has multiple abrasions on her arms/legs with confluent ecchymoses -- she blames many of these abrasions on her cat. She denies any abdominal pain or vomiting or bowel problems and reports that she's been eating/drinking fine. She denied dysuria. Her last chemo was 04/07/18 (gets it every 4 weeks - Dacogen and Neulasta). Labs revealed hypernatremia [147], elevated creatinine [2.1], pancytopenia [ chronic], unremarkable UA and CXR. Her BP ranged between 103/51-158/67. She was admitted [place] [facility] [place] and further monitoring of her hypotensive/near syncopal event earlier. Objective Vital signs: Temperature 96.2 F L 05/01/18 07:06 Pulse Rate 68 05/01/18 07:06 Respiratory Rate 22 05/01/18 10:59 Blood Pressure 145/78 H 05/01/18 07:06 Pulse Oximetry 96 05/01/18 10:59 Height/Weight/BMI: Height 1.57 m Weight 67 kg Body Mass Index 26.6 Comments: Afebrile, heart rate 68, respirations 22, blood pressure 149/78, O2 sat 96% on room air On exam the patient is alert and oriented 3 and in no acute distress. She has an occasional cough during my visit which sounds productive. Chest reveals some scattered coarse breath sounds with some occasional wheezes, overall is improving compared to last week. Cardiovascular reveals a regular rate and rhythm. Abdomen is soft and nontender. Extremities are free of edema. Patient has a right BKA and is wearing her prosthesis. Hospital Course This is a general summary of the patient's hospital course. For more details refer to the complete medical record. Hospital course: The patient was admitted on 04/17/2018 with acute hypoxic respiratory failure, acute kidney injury, near syncope, and chronic pancytopenia. She was started on IV fluids, breathing treatments and started on Levaquin initially. Blood cultures were obtained and were negative. Viral respiratory panel was positive for rhinovirus. The patient had been having a cough prior to admission. The patient was switched to Rocephin. Chest x-ray showed basilar atelectasis during the hospital course but no obvious infiltrates or pneumonia. The patient was started on steroids for continued wheezing. Over the hospital course the patient's O2 requirements decreased and she was eventually on room air for the past several days. Multiple chest x-rays were obtained as noted above and none showed pneumonia. Sputum culture showed only normal yaneth and some yeast. During the hospital course the patient continued to have productive cough but this is improving slowly. The patient also has history of myelodysplastic syndrome and developed neutropenia during the hospital course for which she required Granix on 3 occasions. She also received 1 unit of blood on 04/19/2018 for anemia. Hemoglobin has been well-controlled since that time. White count does fluctuate , likely secondary to steroids. On the day of discharge is 4.9. Platelets of also fluctuated during the hospital course. They were 43 on admission, went as low as 22 on 04/21/2018 and then were as high as 86 on 04/28/2018. On the day of discharge platelets are 56. The patient has not had any bleeding during the hospital course. She remained on her aspirin and Plavix for known coronary artery disease with recent stent placement. She did not require platelet transfusion. The patient did have some hypoglycemia during the hospital course and her home insulin was decreased. The patient has been following with physical therapy and doing quite well. She has been walking frequently in the halls with her walker without difficulty. The patient is been seeing the wound and skin nurses regarding a skin tear on her left calf. On the day of discharge the wound and skin nurse did see the patient and placed a dressing which should stay on for 7 days. The patient's will take it off in 7 days and if the wound is not healed, she is to call to make an appointment to go in and be evaluated at the wound care center. She also has some mild skin breakdown on her right stump where she has a BKA. The wound and skin nurse did evaluate this and recommends that she just use an extra sock for now and get a new stump cover which she has discussed with the patient and the patient's . The patient's renal function did quickly improve with IV fluids. Her torsemide has remained on hold. On 05/01/2018 it was felt that the patient was stable for dismissal to home. It may take a while for her cough to improve, but she has had no pneumonia and sputum cultures have not revealed any concerning results. She will continue on a steroid taper at home. She is to continue breathing treatments at home. She is to follow-up with Dr. Brice at discharge. Discussed Hospital course and discharge plans with the patient's oncologist, Dr. Santiago and with Dr. Marisol Morales, partner of the patients PCP, Dr. Yoni Brice. Dr. Santiago with like to see the patient back in 2 weeks. His office will call the patient and notify her when to come in for lab work later this week. He will likely be ordering a CBC twice weekly. Time spent with patient: greater than 35 minutes Discharge Plan - Discharge Disposition Discharge Date: 05/01/18 Disposition: Discharged Home, Self-Care *Condition: Stable Reason For Visit (Visit label in EMR): Dehydration, CHF, MDS - Discharge Medications *Discharge Medications: New Albuterol/Ipratropium [Duoneb] 3 ml AEROSOL RTQID #120 each Guaifenesin/Dm [Mucinex Dm] 1 tab PO BID tab Insulin Glargine,Hum.rec.anlog [Lantus] 4 unit SQ HS vial Metoprolol Tartrate [Lopressor] 25 mg PO BIDWM tab PEG 3350 17gm PACKET [Miralax] 17 gm PO DAILY packet PredniSONE [Deltasone 10 mg] 10 mg PO WB 5 Days #5 tab Vitamin E 400 unit PO DAILY #30 cap Pantoprazole Sodium [Protonix] 20 mg PO ACB #14 tablet.dr Warren Nitroglycerin 0.4 mg SL Q5MIN PRN #0 PRN Reason: CHEST PAIN Morphine Sulfate 30 mg PO HS Aspirin [Adult Low Dose Aspirin EC] 81 mg PO HS Insulin Regular-Do Not Expunge [Humulin] 2 unit SQ PRN PRN PRN Reason: Blood Sugar >200 Ferrous Sulfate 325 mg PO BID Magnesium Chloride [Mag64] 64 mg PO BID Melatonin/Pyridoxine HCl (B6) [Melatonin 3 mg Tablet] 3 mg PO HS Clopidogrel Bisulfate [Clopidogrel] 75 mg PO HS Cyclobenzaprine [Flexeril] 5 mg PO TID PRN PRN Reason: Prn Orders Carboxymethylcellulos/Glycerin [Refresh Optive Eye Drops] 2 drop EACH EYE QID Fluorometholone 0.1% [Fml] 1 drop EACH EYE BID Calcium Carbonate 600 mg PO BID Levothyroxine Tab [Synthroid] 137 mcg PO ACB Hydromorphone [Dilaudid] 2 mg PO BID PRN PRN Reason: Pain Isosorbide Mononitrate ER [Imdur] 30 mg PO DAILY Morphine Sulfate *IR* 30 mg PO QID PRN PRN Reason: Pain Fenofibrate [Tricor] 145 mg PO HS #0 Acyclovir 800 mg PO BID #0 Duloxetine HCl 30 mg PO DAILY Morphine Sulfate [Morphine Sulfate ER] 30 mg PO HS Minocycline [Minocin] 100 mg PO BID Morphine Sulfate [Arymo ER] 15 mg PO DAILY Morphine Sulfate *IR* [Morphine Sulfate *Ir*] 30 mg PO QID PRN PRN Reason: Pain Cholecalciferol (Vitamin D3) [Maximum D3] 20,000 unit PO HS Lisinopril [Prinivil] 2.5 mg PO DAILY Discontinued Vitamin E 400 unit PO DAILY Metoprolol Tartrate 25 mg PO DAILY Torsemide 5 - 10 mg PO DAILY #0 Insulin Glargine [Lantus] 9 unit SQ HS - Discharge Packet/Instructions *Diet: Mechanical soft diet, diabetic diet *Activity: Up with walker *Pain Management/Treatment: Morphine as directed *Wound Care: Keep the dressing on your left calf and remove in 7 days. If wound is not healed, call the wound care center for follow-up appointment. Regarding the small wound on your right lower extremity stump, use an extra sock for now and get a new stump cover. Do not use a dressing on the stump wound. Called the wound and skin clinic if either of these wounds should worsen or not heal Additional Instructions: Check her blood sugar fasting and 2 hours after meals. Notify your physician if you're having blood sugars less than 70 or greater than 250. Dr. Santiago's office will call and let you know when to come in for lab work next, likely will be 2 times per week. *Expected Signs/Symptoms: Cough should slowly improve. Weakness should slowly improve. *Notify Physician if: Notify your physician or seek medical attention if you have shortness of breath, cough is not improving, if you have chest pain, lightheadedness, fevers, abnormal bleeding, or any other significant concerns. *During Business Hours Contact: Call Dr. Brice's office or Dr. Santiago's office *After Business Hours Contact: Call [phone] to have your physician paged *Pending Lab/Results: No Pending Lab - Referrals/Follow Up *Referrals/Follow Up: Ynoi Brice MD [Primary Care Provider] - 1 Week Octavio Santiago MD [Physician] - 2 Weeks - Patient Handouts - Dismissal Complete Discharge Instructions are:: Complete Physician Narrative - Narrative Attestation Narrative: Date: 05/01/18 Time: [id number]
[2018-05-01] MEDS: INSULIN REGULAR, HUMAN 100 UNIT/ML INJECTION SQ PRN (14:45)
--- NOTE | 2018-05-01 15:14 | Wound Care Progress Note ---
Wound Center Progress Note: Dr Roman called to have wound care check on pt today prior to dismissal. Pt is have bruising around her stump, previous nurse had placed Meilex for protection. Discussed that pt is in the process of getting new stump cover. Pt' s said they think the paperwork is done and they should be able to move ahead after dismissal. At this time suggested that pt use an extra sock do to pt's skin being so tender and easily torn by Mepilex. Left leg calf continues to have a large non adherent skin tear. Placed promogran into the tear and above the tear and covered with Mepilex. Expalined to that the drsg need to stay in place for 7 days then when it is removed if there is no change or the skin was not adhering to make an appointment at the wound clinic, which we are very familar with her.
[2018-05-01 15:29] VITALS: TEMP 97.1
[2018-05-01 15:30] VITALS: BP 139/79; O2SAT 98
[2018-05-01 16:30] VITALS: RESP 18
--- NOTE | 2018-05-02 13:12 | Right on Track Program ---
Right on Track Program Date of Discharge: 05/01/18 Home Medications: Home Medications Medication Instructions Recorded Confirmed Nitroglycerin 0.4 mg SL Q5MIN PRN #0 06/27/10 04/17/18 Fenofibrate [Tricor] 145 mg PO HS #0 06/23/11 04/17/18 Acyclovir 800 mg PO BID #0 07/11/15 04/17/18 Duloxetine HCl 30 mg PO DAILY 05/25/17 04/17/18 Aspirin [Adult Low Dose Aspirin EC] 81 mg PO HS 07/29/17 04/17/18 Morphine Sulfate 30 mg PO HS 07/29/17 04/17/18 Morphine Sulfate [Morphine Sulfate 30 mg PO HS 07/29/17 04/17/18 ER] Insulin Regular-Do Not Expunge 2 unit SQ PRN PRN 08/15/17 04/17/18 [Humulin] Clopidogrel Bisulfate [Clopidogrel] 75 mg PO HS 01/25/18 04/17/18 Ferrous Sulfate 325 mg PO BID 01/25/18 04/17/18 Magnesium Chloride [Mag64] 64 mg PO BID 01/25/18 04/17/18 Melatonin/Pyridoxine HCl (B6) 3 mg PO HS 01/25/18 04/17/18 [Melatonin 3 mg Tablet] Minocycline [Minocin] 100 mg PO BID 01/25/18 04/17/18 Morphine Sulfate [Arymo ER] 15 mg PO DAILY 01/25/18 04/17/18 Calcium Carbonate 600 mg PO BID 04/17/18 04/17/18 Carboxymethylcellulos/Glycerin 2 drop EACH EYE QID 04/17/18 04/17/18 [Refresh Optive Eye Drops] Cholecalciferol (Vitamin D3) 20,000 unit PO HS 04/17/18 04/17/18 [Maximum D3] Cyclobenzaprine [Flexeril] 5 mg PO TID PRN 04/17/18 04/17/18 Fluorometholone 0.1% [Fml] 1 drop EACH EYE BID 04/17/18 04/17/18 Hydromorphone [Dilaudid] 2 mg PO BID PRN 04/17/18 04/17/18 Isosorbide Mononitrate ER [Imdur] 30 mg PO DAILY 04/17/18 04/17/18 Levothyroxine Tab [Synthroid] 137 mcg PO ACB 04/17/18 04/17/18 Morphine Sulfate *IR* [Morphine 30 mg PO QID PRN 04/17/18 04/17/18 Sulfate *Ir*] Lisinopril [Prinivil] 2.5 mg PO DAILY 04/25/18 04/25/18 Morphine Sulfate *IR* 30 mg PO QID PRN 04/25/18 04/25/18 Previous Rx's Medication Instructions Recorded Albuterol/Ipratropium [Duoneb] 3 ml AEROSOL RTQID #120 each 05/01/18 Guaifenesin/Dm [Mucinex Dm] 1 tab PO BID tab 05/01/18 Insulin Glargine,Hum.rec.anlog 4 unit SQ HS vial 05/01/18 [Lantus] Metoprolol Tartrate [Lopressor] 25 mg PO BIDWM tab 05/01/18 PEG 3350 17gm PACKET [Miralax] 17 gm PO DAILY packet 05/01/18 Pantoprazole Sodium [Protonix] 20 mg PO ACB #14 tablet. 05/01/18 PredniSONE [Deltasone 10 mg] 10 mg PO WB 5 Days #5 tab 05/01/18 Vitamin E 400 unit PO DAILY #30 cap 05/01/18 - Right on Track Program Phone call Date: 05/02/18 Right on Track Program: 24 Hour Follow-Up Discharge Summary Received: Yes Care Plan Received: Yes Comments: There was no answer when I called Zeenat on 05/02/18. I left my contact information and requested a return call. Recommendations For Follow-up: No further conversation held with patient; no home visit was scheduled. Continue f/u with PCP and specialists. - Problems (1) Myelodysplasia (myelodysplastic syndrome) Code(s): D46.9 - Myelodysplastic syndrome, unspecified Status: Acute (2) Acute kidney injury Code(s): N17.9 - Acute kidney failure, unspecified Status: Acute (3) Respiratory insufficiency Code(s): R06.89 - Other abnormalities of breathing Status: Acute
== END 2018-05-01 17:00 | disposition home or self-care (01) | DRG 811 ==
LOC: ED 12:07 → EDHOLD 12:07 → SUATTDRO 14:01 → EDHOLD 14:30 → MED 14:35 → SUATTDRO 04-18 14:27
PROVIDERS: ADMIT Internal Medicine; ATTEND Internal Medicine